=== PATIENT | male | born 1940 | race Hispanic/Latino ===

== ENCOUNTER 2017-08-08 11:26 | Emergency (ER) | payer OTHER ==
[~2017-08-08] VITALS: Ht 165.1 cm; Wt 95.3 kg
[~2017-08-08 11:26] MED LIST: A.I.R.S. NEBUL1 EACH; ADVAIR HFA 230-12 GM INH; AMLODIPINE BESY10 MG PO; CLONIDINE HCL0.2 MG PO; CLONIDINE HCL0.3 MG PO; CLOPIDOGREL75 MG PO; COLACE100 MG PO; HTN MED; LINZESS PO; LIPITOR20 MG PO; METOPROLOL TART25 MG PO; METOPROLOL TART50 MG PO; NORCO 10MG-325MG1 EA PO; NORVASC5 MG PO; OMEGA 3 PO; PREDNISONE10 MG PO; PROAIR HFA INH8.5 GM INH; TAMSULOSIN HCL0.4 MG PO; TERAZOSIN HCL1 MG PO; VENTOLIN HFA18 GM
--- OUTSIDE RECORDS SUMMARY | 2017-08-08 11:30 | XMS REPORT ---
Author Author [facility] Address Unknown Phone Unavailable Care Team Providers Care Mgmt Specialist Name Role Phone ADRIANNE PRIETO Unavailable Unavailable Problems This patient has no known problems. Allergies, Adverse Reactions, Alerts This patient has no known allergies or adverse reactions. Medications This patient has no known medications. Results Test Description Test Time Test Comments Text Results Atomic Results Result Comments CHEST 2 VIEWS [place] [address] Patient Name: BI VILLELA MR #: [id number] : 1940 Age/Sex: 76/M Req # : [id number] Adm Physician: Ordered by: ADRIANNE PRIETO MD Report #: [id number] Location: ER Room/Bed: Procedure: [id number] DX/CHEST 2 VIEWS Exam Date: 04/19/17 Exam Time: 1330 REPORT STATUS: Signed PROCEDURE: Frontal and lateral views of the chest. COMPARISON: Chest 2 views 04/22/2016. INDICATIONS: COUGH AND CHEST PAIN FINDINGS: Lines/tubes: None. Lungs: The lungs are well inflated and clear. There is no evidence of pneumonia or pulmonary edema. Bibasilar atelectasis. Pleura: There is no pleural effusion or pneumothorax. Heart and mediastinum: The heart and the mediastinum are normal. Bones: No acute bony abnormality. IMPRESSION: No acute radiographic abnormality. Dictated by: Gianna Villalpando M.D. on 04/19/2017 at 14:33 Electronically approved by: Gianna Villalpando M.D. on 04/19/2017 at 14:33 Dictated By: GIANNA VILLALPANDO MD [id number] Transcribed By: JOHANNA on 04/19/17 1433 COPY TO: ADRIANNE PRIETO MD
[2017-08-08 12:07] LABS: BASOPHILS # (AUTO) 0.1 (0.0-0.1); BASOPHILS % 0.6 % (0.0-1.0); EOSINOPHILS # (AUTO) 0.4 (0.0-0.4); HEMATOCRIT 42.8 % (38.2-49.6); HEMOGLOBIN 14.1 g/dL (14.0-18.0); LYMPHOCYTES # (AUTO) 1.5 (1.0-3.2); LYMPHOCYTES % 15.9 % (18.0-39.1); MEAN CORPUSCULAR HEMOGLOBIN 28.3 pg (28-32); MEAN CORPUSCULAR HGB CONC 32.9 g/dL (31-35); MEAN CORPUSCULAR VOLUME 85.9 fL (81-99); MONOCYTES # (AUTO) 0.5 (0.2-0.8); MONOCYTES % 5.2 % (4.4-11.3); NEUTROPHILS # (AUTO) 6.9 (2.1-6.9); NEUTROPHILS % 73.7 % (38.7-80.0); PLATELET COUNT 193 x10e3/uL (140-360); RED BLOOD COUNT 4.98 x10e6/uL (4.3-5.7); RED CELL DISTRIBUTION WIDTH 14.4 % (11.7-14.4)
[2017-08-08 12:25] LABS: ALBUMIN 3.4 g/dL (3.5-5.0); ALBUMIN/GLOBULIN RATIO 0.9 (0.8-2.0); ANION GAP 18.5 mmol/L (8-16); CALCIUM 8.8 mg/dL (8.4-10.2); CREATININE, SERUM 2.37 mg/dL (0.72-1.25); POTASSIUM 4.5 mmol/L (3.5-5.1)
[2017-08-08 14:16] VITALS: BP 149/85
== END 2017-08-08 14:38 | disposition home or self-care (01) ==
LOC: ER 11:26
DX: M79.605 Pain in left leg (principal); I10 Essential (primary) hypertension; E78.5 Hyperlipidemia, unspecified; Z85.53 Personal history of malignant neoplasm of renal pelvis
CPT/HCPCS: 36415; 80053; 85025; 93005; 93925; 93970; 99283

== ENCOUNTER → 2018-01-21 | Day surgery (SDC) | payer MEDICARE, OTHER ==
[2018-01-20 11:30] LABS: BASOPHILS % 0.3 % (0.0-1.0); EOSINOPHILS # (AUTO) 0.3 (0.0-0.4); EOSINOPHILS % 4.5 % (0.0-6.0); HEMATOCRIT 37.9 % (38.2-49.6); HEMOGLOBIN 11.9 g/dL (14.0-18.0); LYMPHOCYTES # (AUTO) 1.5 (1.0-3.2); LYMPHOCYTES % 25.1 % (18.0-39.1); MEAN CORPUSCULAR HGB CONC 31.4 g/dL (31-35); MEAN CORPUSCULAR VOLUME 92.2 fL (81-99); MONOCYTES # (AUTO) 0.6 (0.2-0.8); MONOCYTES % 9.4 % (4.4-11.3); NEUTROPHILS # (AUTO) 3.6 (2.1-6.9); NEUTROPHILS % 59.9 % (38.7-80.0); PLATELET COUNT 128 x10e3/uL (140-360); RED BLOOD COUNT 4.11 x10e6/uL (4.3-5.7); RED CELL DISTRIBUTION WIDTH 14.7 % (11.7-14.4)
[2018-01-20 11:54] LABS: ANION GAP 15.4 mmol/L (8-16); CALCIUM 8.7 mg/dL (8.4-10.2); CREATININE, SERUM 2.58 mg/dL (0.72-1.25); POTASSIUM 5.4 mmol/L (3.5-5.1)
[~2018-01-21] MED LIST changes: +BUPIVACAINE 0.25%/EPI 30ML SDV INJ ONE; +DEXAMETHASONE SOD PHOS INJ 4 MG/ML VIAL ONE; +FENTANYL CITRATE/PF 100MCG/2 ML INJ ONE; +FUROSEMIDE40 MG PO; +GABAPENTIN400 MG PO; +KETOROLAC TROMETHAMINE 30 MG/ML VIAL ONE; +LIDOCAINE HCL 1% LOCAL INJ 20 ML VIAL ONE; +LIDOCAINE HCL 2% LOCAL INJ 5 ML SDV VIAL INJ ONE; +LISINOPRIL10 MG PO; +MIDAZOLAM HCL 2 MG/2 ML VIAL ONE; +NIFEDIPINE ER30 M1 PO; +ONDANSETRON HCL INJ 2 MG/ML VIAL ONE; +POTASSIUM CHLO10 ME1 PO; +PROPOFOL IV EMULSION 10 MG/ML 20 ML VIAL ONE; +ROPINIROLE HC0.25 MG PO; +SERTRALINE HCL100 MG PO; +SEVOFLURANE INHAL SOLN 250 ML PEN BTL ONE
--- NOTE | 2018-01-21 11:37 | Operative Report ---
DATE OF PROCEDURE: PREOPERATIVE DIAGNOSIS: Status post incision and drainage of infected epidermal inclusion cyst of the mid back. POSTOPERATIVE DIAGNOSIS: Status post incision and drainage of infected epidermal inclusion cyst of the mid back. PROCEDURE PERFORMED: Excision of previously drained epidermal inclusion cyst of the back with flap closure. ANESTHESIA: General endotracheal. ESTIMATED BLOOD LOSS: Minimal. DRAINS: None. COMPLICATIONS: None. INDICATIONS AND FINDINGS: A 77-year-old male who had undergone I and D of an infected epidermal inclusion cyst of the back, now admitted for wide excision after the I and D site has healed. Intraoperative findings were healed scar in the mid back with residual scarring consistent with previously drained inclusion cyst. DESCRIPTION OF PROCEDURE: With the patient on the operative table in the supine position after administration of general anesthesia, he was prepped and draped for excision of previously drained epidermal inclusion cyst. With the patient in the right lateral decubitus position, an elliptical incision was drawn around the cyst and then, the skin was incised and the dissection was carried out through the subcutaneous tissue and scar tissue down to the fascia. The remaining part of the excision was carried out using electrocautery and the tissue was then removed. Bleeding points cauterized. The wound irrigated, infiltrated with 0.25% Marcaine with epinephrine, and then closed in 2 layers using 2-0 Vicryl for the soft tissues and the skin was closed using 3-0 silk. Sterile dressing was applied. The patient tolerated the procedure well, taken to the recovery room in stable condition. Job#: [id number] AYESHA
== END | disposition home or self-care (01) ==
LOC: OR 07:54
PROVIDERS: ATTEND Surgery
DX: L72.0 Epidermal cyst (principal); L90.5 Scar conditions and fibrosis of skin; J44.9 Chronic obstructive pulmonary disease, unspecified; G47.33 Obstructive sleep apnea (adult) (pediatric); K21.9 Gastro-esophageal reflux disease without esophagitis; Z01.810 Encounter for preprocedural cardiovascular examination; Z01.812 Encounter for preprocedural laboratory examination; Z79.02 Long term (current) use of antithrombotics/antiplatelets
CPT/HCPCS: 21930; 36415 ×2; 80048; 84132; 85025; 88305; 93005; J1100; J1885; J2250; J2001; J2405; 88304

== ENCOUNTER 2018-08-18 10:19 | Inpatient (IN) | payer MEDICARE, OTHER ==
[~2018-08-18] VITALS: Ht 165.1 cm; Wt 95.3 kg
[~2018-08-18 10:19] MED LIST changes: -BUPIVACAINE 0.25%/EPI 30ML SDV INJ ONE; -DEXAMETHASONE SOD PHOS INJ 4 MG/ML VIAL ONE; -FENTANYL CITRATE/PF 100MCG/2 ML INJ ONE; -KETOROLAC TROMETHAMINE 30 MG/ML VIAL ONE; -LIDOCAINE HCL 1% LOCAL INJ 20 ML VIAL ONE; -LIDOCAINE HCL 2% LOCAL INJ 5 ML SDV VIAL INJ ONE; -MIDAZOLAM HCL 2 MG/2 ML VIAL ONE; -ONDANSETRON HCL INJ 2 MG/ML VIAL ONE; -PROPOFOL IV EMULSION 10 MG/ML 20 ML VIAL ONE; -SEVOFLURANE INHAL SOLN 250 ML PEN BTL ONE
[2018-08-18 11:10] LABS: BASOPHILS % 0.4 % (0.0-1.0); EOSINOPHILS # (AUTO) 0.3 (0.0-0.4); EOSINOPHILS % 3.3 % (0.0-6.0); HEMATOCRIT 40.9 % (38.2-49.6); HEMOGLOBIN 12.9 g/dL (14.0-18.0); LYMPHOCYTES % 12.9 % (18.0-39.1); MEAN CORPUSCULAR HEMOGLOBIN 27.4 pg (28-32); MEAN CORPUSCULAR HGB CONC 31.5 g/dL (31-35); MEAN CORPUSCULAR VOLUME 86.8 fL (81-99); MONOCYTES # (AUTO) 0.5 (0.2-0.8); MONOCYTES % 6.4 % (4.4-11.3); NEUTROPHILS # (AUTO) 5.7 (2.1-6.9); NEUTROPHILS % 76.2 % (38.7-80.0); PLATELET COUNT 176 x10e3/uL (140-360); RED BLOOD COUNT 4.71 x10e6/uL (4.3-5.7); RED CELL DISTRIBUTION WIDTH 14.6 % (11.7-14.4)
[2018-08-18 11:34] LABS: ALBUMIN 3.4 g/dL (3.5-5.0); ANION GAP 13.1 mmol/L (8-16); CALCIUM 8.3 mg/dL (8.4-10.2); CREATININE, SERUM 2.08 mg/dL (0.72-1.25); POTASSIUM 4.1 mmol/L (3.5-5.1)
--- NOTE | 2018-08-18 11:34 | NUR ---
rec'd pt in rm 6 from the lobby for left leg swelling/redness
[2018-08-18 11:38] LABS: INR 0.88; PROTHROMBIN TIME 12.4 seconds (11.9-14.5)
[2018-08-18 11:39] LABS: PARTIAL THROMBOPLASTIN TIME 29.1 seconds (23.8-35.5)
[2018-08-18 11:47] LABS: CLARITY,URINE CLEAR (CLEAR); COLOR,URINE STRAW (YELLOW); LEUKOCYTE ESTERASE ,URINE NEGATIVE (NEGATIVE); NITRITE,URINE NEGATIVE (NEGATIVE); PROTEIN,URINE DIPSTICK 3+ (NEGATIVE)
[2018-08-18 11:48] LABS: BILIRUBIN,URINE NEGATIVE (NEGATIVE); KETONES,URINE NEGATIVE (NEGATIVE); URINE UROBILINOGEN 0.2 mg/dL (0.2 - 1)
[2018-08-18 11:56] LABS: HYALINE CASTS 0-1 (0-1)
[2018-08-18 11:58] LABS: WBC,URINE (MAN) 0-5 /HPF (0-5)
--- NOTE | 2018-08-18 13:03 | Diagnostic Imaging Report ---
EXAMINATION: CHEST 2 VIEWS INDICATION: Shortness of breath, rhonchi right lung base. COMPARISON: None FINDINGS: TUBES and LINES: None. LUNGS: There are mild patchy bibasilar opacities, left greater than right. No evidence of pulmonary edema. PLEURA: No pleural effusion or pneumothorax. HEART AND MEDIASTINUM: The cardiomediastinal silhouette is unremarkable. There are atherosclerotic calcifications within the aorta. BONES AND SOFT TISSUES: No acute osseous abnormality. UPPER ABDOMEN: No free air under the diaphragm. IMPRESSION: Mild patchy bibasilar opacities may represent pneumonia or atelectasis in the appropriate clinical setting. Follow-up chest radiograph is suggested in 6-8 weeks to assess for resolution. No evidence of pulmonary edema. Signed by: Dr. Dalila Zhou MD on 08/18/2018 1:00 PM
[2018-08-18] MEDS ORDERED: SODIUM CHLORIDE 0.9% 1000ML 1,000 ML IV SCH (14:16)
[2018-08-18] MEDS ORDERED: CEFTRIAXONE SOD 1 GRAM/0.9% SOD CHL 50ML BAG IV SCH (14:30)
[2018-08-18] MEDS ORDERED: AZITHROMYCIN 500MG/SOD CHL 0.9% 250ML BAG IV SCH (14:30)
[2018-08-18] MEDS: AZITHROMYCIN 500MG/NS 250 ML 250 ML IV SCH (14:30)
[2018-08-18] MEDS ORDERED: ALBUTEROL SULF 0.083% NEB SOLN 3 ML NEB NEB SCH (14:30)
[2018-08-18] MEDS: IPRATROPIUM BROMIDE 0.02% 2.5 ML NEB NEB SCH (14:35)
[2018-08-18] MEDS: ALBUTEROL SULF 0.083% NEB SOLN 3 ML NEB NEB SCH ×2 (14:35→19:45)
[2018-08-18] MEDS: CEFTRIAXONE SOD 1 GM/NS 50 ML 50 ML IV SCH (15:08)
[2018-08-18 16:25] VITALS: BP 178/85
--- NOTE | 2018-08-18 16:42 | NUR ---
PATIENT ARRIVED ON THE UNIT AT 1615 PER STRETCHER FROM THE ER. PATIENT IS IN STABLE CONDITION WITH NO S/S OF RESPIRATORY DISTRESS. PATIENT REQUESTED O2- O2 APPLIED. PATIENT C/O HEAD PAIN. IV ANTIBIOTIC INFUSING. FAMILY MEMBERS PRESENT AT BEDSIDE. CALL LIGHT IS WITHIN REACH- PATIENT INSTRUCTED TO CALL FOR ASSISTANCE NEEDED. AIR PUMP APPLIED.
[2018-08-18 16:45] VITALS: BP 178/85
[2018-08-18 16:53] VITALS: BP 178/85
[2018-08-18] MEDS ORDERED: IPRATROPIUM BROMIDE 0.02% 2.5 ML NEB NEB SCH (18:00)
--- NOTE | 2018-08-18 18:06 | NUR ---
CALL PLACED OUT TO DR. IBARRA AT 1800 FOR PAIN MEDICATION- AWAITING CALLBACK.
[2018-08-18 19:00] VITALS: BP 178/85
--- NOTE | 2018-08-18 19:00 | NUR ---
PT IS RESTING IN BED WITH FAMILY AT BEDSIDE. NO RESPIRATORY DISTRESS NOTED. BED IN THE LOWEST POSITION, LOCKED, AND CALL LIGHT WITHIN REACH. WILL CONTINUE TO MONITOR.
[2018-08-18 19:13] LABS: CREATINE KINASE MB 2.9 ng/mL (0-5.0)
--- NOTE | 2018-08-18 19:24 | NUR ---
PATIENT IS RESTING IN BED- IN STABLE CONDITION WITH NO S/S OF RESPIRATORY DISTRESS. NO PAIN VOICED. O2 APPLIED. IV FLUIDS INFUSING. BED ALARM ON. CALL LIGHT IS WITHIN REACH- PATIENT INSTRUCTED TO CALL FOR ASSISTANCE NEEDED. BEDSIDE REPORT GIVEN TO ONCOMING NURSE.
[2018-08-18 20:00] VITALS: BP 197/89
--- NOTE | 2018-08-18 20:51 | NUR ---
PAGE DR IBARRA FOR BP ORDER. PT BP IS 197/89. AWAITING CALL BACK.
--- NOTE | 2018-08-18 20:59 | NUR ---
PER DR IBARRA CONTINUE CLONIDINE 0.1MG Q6H PRN FOR BP GREATER THAN 160/90, LISINOPRIL 20MG DAILY, NIFEDIPINE 60MG BID, TYLENOL 650MG Q6 PRN, NORCO 5MG Q6 PRN, AND CONSULT DR SUE. WILL CONTINUE TO MONITOR.
[2018-08-18] MEDS ORDERED: HYDROCODONE/APAP 5MG-325MG TAB PO PRN (21:00)
[2018-08-18] MEDS ORDERED: CLONIDINE HCL 0.2 MG TAB PO PRN (21:00)
[2018-08-18] MEDS ORDERED: ACETAMINOPHEN 325 MG TAB PO PRN (21:00)
[2018-08-18] MEDS: CLONIDINE HCL 0.1 MG TAB PO PRN (21:28)
[2018-08-19] VITALS (11 sets, daily range): BP systolic 158–202; BP diastolic 77–94
[2018-08-19] MEDS: ALBUTEROL SULF 0.083% NEB SOLN 3 ML NEB NEB SCH ×6 (00:05→19:43)
[2018-08-19] MEDS: IPRATROPIUM BROMIDE 0.02% 2.5 ML NEB NEB SCH ×4 (00:05→19:43)
[2018-08-19] MEDS: CLONIDINE HCL 0.1 MG TAB PO PRN ×3 (03:23→21:15)
--- NOTE | 2018-08-19 06:08 | Diagnostic Imaging Report ---
EXAMINATION: CHEST SINGLE (PORTABLE) INDICATION: Pneumonia. COMPARISON: 08/18/2018. FINDINGS: TUBES and LINES: None. LUNGS: Redemonstration of patchy bibasilar opacities, left greater than right, unchanged. No evidence of pulmonary edema. PLEURA: No pleural effusion or pneumothorax. HEART AND MEDIASTINUM: The cardiac silhouette is mildly enlarged. Calcification of aortic arch. There are atherosclerotic calcifications within the aorta. BONES AND SOFT TISSUES: No acute osseous abnormality. UPPER ABDOMEN: No free air under the diaphragm. IMPRESSION: Patchy bibasilar opacities again observed without significant change. It may represent atelectasis versus pneumonia in the proper clinical setting. Signed by: Dr. Bruna Cortés M.D. on 08/19/2018 6:04 AM
[2018-08-19 06:42] LABS: BASOPHILS % 0.3 % (0.0-1.0); EOSINOPHILS # (AUTO) 0.2 (0.0-0.4); HEMOGLOBIN 11.9 g/dL (14.0-18.0); LYMPHOCYTES # (AUTO) 1.2 (1.0-3.2); LYMPHOCYTES % 16.1 % (18.0-39.1); MEAN CORPUSCULAR HEMOGLOBIN 27.6 pg (28-32); MEAN CORPUSCULAR HGB CONC 31.3 g/dL (31-35); MEAN CORPUSCULAR VOLUME 88.2 fL (81-99); MONOCYTES # (AUTO) 0.5 (0.2-0.8); MONOCYTES % 6.8 % (4.4-11.3); NEUTROPHILS # (AUTO) 5.6 (2.1-6.9); NEUTROPHILS % 73.3 % (38.7-80.0); PLATELET COUNT 154 x10e3/uL (140-360); RED BLOOD COUNT 4.31 x10e6/uL (4.3-5.7); RED CELL DISTRIBUTION WIDTH 14.8 % (11.7-14.4)
[2018-08-19 06:55] LABS: ANION GAP 13.2 mmol/L (8-16); CALCIUM 7.8 mg/dL (8.4-10.2); CREATININE, SERUM 1.89 mg/dL (0.72-1.25); POTASSIUM 4.2 mmol/L (3.5-5.1)
[2018-08-19 07:02] LABS: CREATINE KINASE MB 2.4 ng/mL (0-5.0)
--- NOTE | 2018-08-19 07:11 | NUR ---
RECEIVED PATIENT RESTING IN RECLINER. RESPIRATIONS EVEN AND UNLABORED, NO ACUTE DISTRESS NOTED. CALL LIGHT WITHIN REACH.
[2018-08-19] MEDS: NIFEDIPINE CR 30 MG TAB PO SCH ×2 (08:37→16:14)
[2018-08-19] MEDS ORDERED: LISINOPRIL 10 MG TAB PO SCH (09:00)
[2018-08-19] MEDS ORDERED: LISINOPRIL 20 MG TAB PO SCH (09:00)
[2018-08-19] MEDS: POTASSIUM CHLORIDE 10MEQ EA PO SCH ×2 (09:41→16:14)
[2018-08-19] MEDS: TAMSULOSIN HCL 0.4 MG CAP PO SCH (09:41)
[2018-08-19] MEDS: FUROSEMIDE INJ 10 MG/ML 4 ML VIAL IV SCH (09:41)
[2018-08-19] MEDS: CLOPIDOGREL BISULFATE 75 MG TAB PO SCH (09:42)
[2018-08-19] MEDS: GABAPENTIN 400 MG CAP PO SCH ×3 (09:42→21:15)
[2018-08-19] MEDS: ROPINIROLE HCL 0.25 MG TAB PO SCH (09:42)
--- NOTE | 2018-08-19 13:13 | Diagnostic Imaging Report ---
Renal ultrasound. History: History of renal cancer. Discussion: Transverse and longitudinal images of the left kidney was obtained demonstrating normal renal echogenicity. The right kidney is absent. There is no evidence of hydronephrosis, mass or renal calculus. The left kidney measures 12.8 x 5.3 x 5.3 cm. Several renal cysts are present: Medial mid pole measuring 2.6 x 2.4 x 2.4, upper pole measuring 1.3 x 1.3 x 1.3 and lower pole measuring 2.3 x 2.0 x 2.4 cm. The urinary bladder is unremarkable with a normal left urinary jet present. Estimated prevoid volume is 88.7 cc. Prostate is not well seen. There is no evidence of free fluid. IMPRESSION: Multiple left renal cysts. Signed by: Dr. Natan Ocampo DO on 08/19/2018 1:10 PM
--- NOTE | 2018-08-19 14:25 | NUR ---
CASE MANAGEMENT INITIAL ASSESSMENT Training Intern to bedside to discuss plan of care with patient/family. CM/SW role and care transitions discussed. Anticipated discharge plan discussed along with duration of care. CM/SW discussed patients right to make decisions in care. CM/SW work hours given. Patient lives: [place] [facility] [facility] Admit/Transfer: ER Hospital/ER visits since last admit: NONE POA/Emergency contact: ELENI / DTR @ [phone] Current/Previous Home Health: NONE PCP/Follow-up Care: DR. MONTEMAYOR Current/Previous DME: WC, WALKER, NEBULIZER Other Services: NONE Employment Status: RETIRED Areas of Concerns: NONE Referral Needs: NONE Education Needs: NONE IMM/MARTINEZ given and signed (if applicable): IMM SIGNED BY DAUGHTER. COPY TO PT AND COPY TO CHART. DTR REQUESTED TUVALU[employer] FOR IMM LETTER. Goal for discharge: RETURN HOME CM/SW left business card at the bedside with contact information. Name and number was also written on the patients whiteboard. Patient verbalized understanding of discussion. CM will follow-up with ongoing discharge and transition of care needs.
[2018-08-19] MEDS: CEFTRIAXONE SOD 1 GM/NS 50 ML 50 ML IV SCH (15:45)
[2018-08-19] MEDS: AZITHROMYCIN 500MG/NS 250 ML 250 ML IV SCH (16:20)
--- NOTE | 2018-08-19 17:16 | Diagnostic Imaging Report ---
EXAM: CT Chest without contrast 08/19/2018 2:46 PM INDICATION: Pneumonia COMPARISON: 08/18/2018 chest x-ray TECHNIQUE: Chest was scanned utilizing a multidetector helical scanner from the lung apex through the level of the adrenal glands without administration of IV contrast. Coronal and sagittal reformations were obtained. Routine protocol was performed. Technique manipulation was accomplished to maintain the lowest dose possible to the patient. IV CONTRAST: None RADIATION DOSE: Total DLP: 541.25 mGy*cm Estimated effective dose: (DLP x 0.014 x size factor) mSv COMPLICATIONS: None FINDINGS: LINES/ TUBES: None. LUNGS AND AIRWAYS: Right and left lower lobe consolidation. Right lower lobe calcified granuloma. Airways are normal. PLEURA: The pleural spaces are clear. HEART AND MEDIASTINUM: Cystic lesion of the left thyroid lobe. No mediastinal, hilar or axillary lymphadenopathy. The heart is normal in size.. Aortic and coronary artery calcification. There is no pericardial effusion. UPPER ABDOMEN: Limited non-contrast views of the upper abdomen show no abnormality within the visualized liver, spleen or pancreas Gallbladder is absent. Left mid pole renal cyst. Low-density cystic lesion of the lateral limb of the left adrenal gland measures 2.5 cm but is indeterminant. BONES: Degenerative changes of the spine. SOFT TISSUES: Unremarkable. IMPRESSION: 1. Bilateral lower lobe consolidations. 2. Left adrenal mass incompletely characterized. 3. Adrenal mass protocol CT would be of benefit. Signed by: Dr. Natan Ocampo DO on 08/19/2018 5:13 PM
[2018-08-19] MEDS ORDERED: ZOLPIDEM TARTRA10 MG PO (17:29)
[2018-08-19] MEDS ORDERED: NON-FORMULARY MEDICATION (Zolpidem Tartrate 10 MG) PO PRN (17:45)
--- NOTE | 2018-08-19 19:10 | NUR ---
Patient visited in room during nursing rounds. Patient alert and oriented x3. Pt is guinean speaking only. and daughter at bedside visiting. No distress or discomfort noted. On 2L NC and scheduled IV antibiotics. Call calloway within reach. Will monitor closely.
--- NOTE | 2018-08-19 19:31 | Consultation ---
DATE OF CONSULTATION: Pulmonary Consultation REASON FOR THE CONSULT: Pneumonia. HISTORY OF PRESENT ILLNESS: Mr. West is a 77-year-old male, he presented with worsening shortness of breath, coughing and chest discomfort going on for last few days. It progressively got worse, so the daughter brought the patient to the hospital. He has history of chronic kidney disease and BPH. He reports coughing and wheezing. He smoked long time ago, does not remember how many years he smoked. REVIEW OF SYSTEMS: GENERAL: Reports having chills and fever. HEAD: Denies any head trauma. ENT: Denies any earache. CVS: Chest pain. RESPIRATORY: Shortness of breath, cough and wheezing. The rest of the review of systems are negative except as in HPI. PAST MEDICAL HISTORY: History of kidney cancer status post nephrectomy, hypertension, hyperlipidemia, peripheral arterial disease. PAST SURGICAL HISTORY: Nephrectomy. FAMILY AND SOCIAL HISTORY: He does not smoke. Does not drink. PHYSICAL EXAMINATION: VITAL SIGNS: Temperature 96.5, pulse of 70, blood pressure 186/94, respiratory rate of 18 to 20. HEENT: Head is atraumatic, normocephalic. NECK: Supple. CHEST: Wheezing and crackles bilaterally. HEART: S1, S2 audible. ABDOMEN: Soft, nontender. EXTREMITIES: No clubbing, cyanosis. The patient has left lower extremity edema, which he reports is chronic. DIAGNOSTIC DATA: Chest x-ray, I reviewed the images. Multiple patchy opacities consistent with consolidation versus atelectasis. LABORATORY DATA: Sodium 141, potassium 4.2, chloride 110, BUN 21, creatinine 1.89. White count of 7.68, hemoglobin 11.1, platelets 154. ASSESSMENT/PLAN: Mr. West is a 77-year-old male, who presented with worsening shortness of breath. The patient has cough, wheezing; chest x-ray, multiple opacities in the lung, likely pneumonia. However, history of kidney cancer and nephrectomy. RECOMMENDATIONS: 1. I will do a CT of the chest without contrast to further evaluate these opacities. 2. At this point, continue the patient on IV Rocephin and azithromycin as ordered. 3. Nebulizer treatment has been started. If he does not respond well with nebulizer treatment, may need low dose of steroids. Discussed with patient's daughter at bedside in detail. Ponce MD CONG [place]/ROXANNA /[id number]
--- NOTE | 2018-08-19 19:33 | NUR ---
REPORT GIVEN TO ONCOMING NURSE, PATIENT IS SITTING UP IN RECLINER, NO ACUTE DISTRESS NOTED. AT BEDSIDE. CALL LIGHT WITHIN REACH.
--- NOTE | 2018-08-19 20:22 | Consultation ---
DATE OF CONSULTATION: 08/19/2018 Cardiology Consultation REASON FOR CONSULTATION: Congestive heart failure. HISTORY OF PRESENT ILLNESS: This is a 77-year-old man with history of hypertension, hyperlipidemia, renal cell carcinoma status post right nephrectomy, who presents with complaints of shortness of breath. The patient indicates he has been short of breath for approximately the last two weeks with worsening shortness of breath on exertion. He denies any chest pain, palpitations, or lightheadedness. He denies any orthopnea or PND. He likewise denies any fever or chills. REVIEW OF SYSTEMS: Negative except as per HPI. PAST MEDICAL HISTORY: 1. Hypertension. 2. Hyperlipidemia. 3. Peripheral arterial disease. 4. History of right renal cancer status post nephrectomy. PAST SURGICAL HISTORY: 1. Reported femoral-popliteal bypass. 2. Nephrectomy. ALLERGIES: PLEASE SEE EMR. MEDICATIONS: Please see medication list. SOCIAL HISTORY: The patient previously smoked and drank, he has quit both. He denied any alcohol use. FAMILY HISTORY: None. PHYSICAL EXAMINATION: VITAL SIGNS: Temperature 96.6 degrees, pulse 67, respiratory rate 22, blood pressure 125/79, oxygen 100%. GENERAL: Awake, alert, well developed, well nourished, in no acute distress. HEENT: Normocephalic, atraumatic. Pupils equal, no scleral icterus. NECK: Supple. No thyromegaly or cervical lymphadenopathy. No carotid bruits. LUNGS: Clear to auscultation bilaterally. No wheezes or crackles. CARDIOVASCULAR: Normal rate, regular rhythm. No murmur. Normal S1, S2. ABDOMEN: Soft, nontender. EXTREMITIES: 2+ pitting edema in the left greater than right. NEUROLOGIC: Nonfocal exam. LABORATORY DATA: WBC 7.68, hemoglobin 11.9, hematocrit 38, platelets 154. Sodium 141, potassium 4.2, chloride 110, CO2 22, BUN 21, and creatinine 1.89. Troponin 0.024. EKG, normal sinus rhythm. T-wave abnormality. Chest x-ray, patchy bibasilar opacities again observed without significant change, it may represent atelectasis versus pneumonia in the proper clinical setting. IMPRESSION: 1. Dyspnea. 2. Hypertension. 3. Hyperlipidemia. 4. History of peripheral arterial disease. 5. Chronic kidney disease. 6. History of renal cell carcinoma status post right nephrectomy. RECOMMENDATIONS: We will obtain echocardiogram to evaluate LV function. The patient had lower extremity venous Doppler performed without evidence of DVT on the left. Antibiotics per primary service. Blood pressure control, increase losartan. Thank you for this consult. We will continue to follow. Lorin Garrett MD ABS/MODL /[id number]
[2018-08-19] MEDS: ATORVASTATIN 20 MG TAB PO SCH (21:15)
[2018-08-19] MEDS: SERTRALINE HCL 100 MG TAB PO SCH (21:15)
[2018-08-19] MEDS: ZOLPIDEM TARTRATE 10 MG TAB PO PRN (22:36)
[2018-08-20] VITALS (8 sets, daily range): BP systolic 131–186; BP diastolic 60–81
[2018-08-20] MEDS: IPRATROPIUM BROMIDE 0.02% 2.5 ML NEB NEB SCH ×4 (00:10→19:25)
[2018-08-20] MEDS: ALBUTEROL SULF 0.083% NEB SOLN 3 ML NEB NEB SCH ×6 (00:10→19:25)
[2018-08-20] MEDS: GABAPENTIN 400 MG CAP PO SCH ×3 (09:45→20:27)
[2018-08-20] MEDS: LISINOPRIL 20 MG TAB PO SCH (09:45)
[2018-08-20] MEDS: TAMSULOSIN HCL 0.4 MG CAP PO SCH (09:45)
[2018-08-20] MEDS: CLOPIDOGREL BISULFATE 75 MG TAB PO SCH (09:45)
[2018-08-20] MEDS: FUROSEMIDE INJ 10 MG/ML 4 ML VIAL IV SCH (09:45)
[2018-08-20] MEDS: ROPINIROLE HCL 0.25 MG TAB PO SCH (09:45)
[2018-08-20] MEDS: NIFEDIPINE CR 30 MG TAB PO SCH ×2 (09:45→17:19)
[2018-08-20] MEDS: CLONIDINE HCL 0.1 MG TAB PO PRN ×2 (09:45→17:19)
[2018-08-20] MEDS: POTASSIUM CHLORIDE 10MEQ EA PO SCH ×2 (09:45→17:19)
--- NOTE | 2018-08-20 10:00 | NUR ---
Rounds with Dr. Obando
[2018-08-20] MEDS ORDERED: METHYLPREDNISOLONE SOD SUCC 40 MG/ML VIAL 1ML IV ONE (10:15)
[2018-08-20] MEDS: CEFTRIAXONE SOD 1 GM/NS 50 ML 50 ML IV SCH (14:17)
[2018-08-20] MEDS ORDERED: ALBUTEROL/IPRATROPIUM 3 ML NEB NEB PRN (14:30)
[2018-08-20] MEDS ORDERED: AZITHROMYCIN 500MG/NS 250 ML 250 ML IV SCH (15:00)
[2018-08-20] MEDS: CEFEPIME 2 GM/NS 0.9% 100 ML 100 ML IV SCH (15:45)
--- NOTE | 2018-08-20 16:16 | Progress Note ---
DATE: Cardiology Progress Note SUBJECTIVE: The patient states he has no complaints, however, appears to be quite sleepy this morning. OBJECTIVE: VITAL SIGNS: Temperature 96.0, pulse 86, respiratory rate 20, blood pressure 186/77, and oxygen saturation 92% on 2 L nasal cannula. GENERAL: Oriented and oriented x3, resting comfortably in bed, does not appear to be in any acute distress. NECK: Supple. No JVD noted. LUNGS: Clear to auscultation throughout. No wheezing, no rhonchi, or crackles. CARDIOVASCULAR: Regular rate and rhythm. Normal S1 and S2. ABDOMEN: Rounded, soft, nontender. EXTREMITIES: Lower extremity 2+ pitting edema, left greater than right. CARDIOVASCULAR MEDICATIONS: Atorvastatin 80 mg p.o. at bedtime, clonidine 0.1 mg q.6 hours p.r.n., nifedipine 60 mg p.o. b.i.d., Plavix 75 p.o. daily, Lasix 40 mg IV daily, lisinopril 40 mg p.o. daily. LABORATORY DATA: WBC 7.68, hemoglobin 11.9, hematocrit 38.0, platelets 154. Sodium 141, potassium 4.2, BUN 21, creatinine 1.89, calcium 7.8. Troponin 0.024. BNP 63.5. IMPRESSION: 1. Dyspnea. 2. Hypertension. 3. Hyperlipidemia. 4. History of peripheral arterial disease. 5. Chronic kidney disease. Creatinine improved slightly this morning. 6. History of renal cell carcinoma, status post nephrectomy. 7. Diastolic heart failure. RECOMMENDATION: Continue the above-listed cardiac medication. Echocardiogram obtained yesterday with severe left ventricular hypertrophy noted and impaired diastolic relaxation. EF 50% to 55%. Lower extremity venous Doppler without any evidence of DVT on the left. Continue antimicrobial therapy per primary team. Medications adjusted for better blood pressure control. We will continue to follow. Dictated by Cindi Munoz NP MD LORENZA Melara/ROXANNA /[id number]
[2018-08-20] MEDS: VANCOMYCIN 1GM/NS 250 ML 250 ML IV SCH (17:00)
--- NOTE | 2018-08-20 17:40 | NUR ---
Pt continues with audible wheezing. RR continues to be elevated. made aware. Orders rec'd.
[2018-08-20 17:58] LABS: ABG HCO3 22 mmol/L (23-28); ABG PCO2 45 mmHg (41-51); ABG PH 7.29 (7.31-7.41); ABG PO2 85 mmHg (80-105)
[2018-08-20] MEDS ORDERED: FUROSEMIDE INJ 10 MG/ML 4 ML VIAL IV ONE (18:30)
--- NOTE | 2018-08-20 19:15 | NUR ---
Patient visited in room during nursing rounds. Patient alert and oriented x3. Pt is slovenian speaking only. Daughter at bedside visiting. No distress or discomfort noted. On 2L NC and scheduled IV antibiotics and IV steroid. Patient reminded to keep on wearing nasal cannula for oxygen supply. Call calloway within reach. Will monitor closely.
--- NOTE | 2018-08-20 20:25 | NUR ---
Spoke with Dr. Timmons (covering for Dr. Rodriguez) to report patient's elevated BP = 178/77. Dr. Timmons stated that's fine and was aware patient has already received Lasix 80mg IV today. Patient in stable condition at this time.
[2018-08-20] MEDS: SERTRALINE HCL 100 MG TAB PO SCH (20:27)
[2018-08-20] MEDS: ATORVASTATIN 20 MG TAB PO SCH (20:27)
[2018-08-20] MEDS: METHYLPREDNISOLONE SOD SUCC 40 MG/ML VIAL 1ML IV SCH (20:27)
[2018-08-21] VITALS (7 sets, daily range): BP systolic 139–173; BP diastolic 63–78
[2018-08-21] MEDS: ALBUTEROL SULF 0.083% NEB SOLN 3 ML NEB NEB SCH ×6 (00:07→19:22)
[2018-08-21] MEDS: IPRATROPIUM BROMIDE 0.02% 2.5 ML NEB NEB SCH ×4 (00:07→19:22)
[2018-08-21] MEDS: CLONIDINE HCL 0.1 MG TAB PO PRN ×2 (02:48→21:25)
[2018-08-21] MEDS: GABAPENTIN 400 MG CAP PO SCH ×3 (09:45→21:25)
[2018-08-21] MEDS: NIFEDIPINE CR 30 MG TAB PO SCH ×2 (09:45→17:15)
[2018-08-21] MEDS: POTASSIUM CHLORIDE 10MEQ EA PO SCH ×2 (09:45→17:15)
[2018-08-21] MEDS: CLOPIDOGREL BISULFATE 75 MG TAB PO SCH (09:45)
[2018-08-21] MEDS: TAMSULOSIN HCL 0.4 MG CAP PO SCH (09:45)
[2018-08-21] MEDS: ROPINIROLE HCL 0.25 MG TAB PO SCH (09:45)
[2018-08-21] MEDS: LISINOPRIL 20 MG TAB PO SCH (09:45)
[2018-08-21] MEDS: FUROSEMIDE INJ 10 MG/ML 4 ML VIAL IV SCH (10:00)
[2018-08-21] MEDS: METHYLPREDNISOLONE SOD SUCC 40 MG/ML VIAL 1ML IV SCH ×2 (10:00→21:25)
[2018-08-21 13:48] LABS: BASOPHILS % 0.1 % (0.0-1.0); HEMATOCRIT 34.4 % (38.2-49.6); HEMOGLOBIN 10.7 g/dL (14.0-18.0); LYMPHOCYTES # (AUTO) 0.5 (1.0-3.2); LYMPHOCYTES % 4.9 % (18.0-39.1); MEAN CORPUSCULAR HEMOGLOBIN 27.6 pg (28-32); MEAN CORPUSCULAR HGB CONC 31.1 g/dL (31-35); MEAN CORPUSCULAR VOLUME 88.7 fL (81-99); MONOCYTES # (AUTO) 0.3 (0.2-0.8); MONOCYTES % 2.8 % (4.4-11.3); NEUTROPHILS # (AUTO) 9.1 (2.1-6.9); NEUTROPHILS % 91.6 % (38.7-80.0); PLATELET COUNT 151 x10e3/uL (140-360); RED BLOOD COUNT 3.88 x10e6/uL (4.3-5.7); RED CELL DISTRIBUTION WIDTH 15.1 % (11.7-14.4)
[2018-08-21 14:11] LABS: ANION GAP 15.6 mmol/L (8-16); CALCIUM 8.1 mg/dL (8.4-10.2); CREATININE, SERUM 2.39 mg/dL (0.72-1.25); POTASSIUM 4.6 mmol/L (3.5-5.1)
[2018-08-21 14:22] LABS: LYMPHOCYTES % (MANUAL) 10 % (19-48); MONOCYTES % (MANUAL) 3 % (3.4-9.0); NEUTROPHILS % (MANUAL) 87 % (40-74); PLATELET ESTIMATE ADEQUATE; PLATELET MORPHOLOGY COMMENT NORMAL; RBC MORPHOLOGY COMMENT NORMAL
[2018-08-21] MEDS: CEFEPIME 2 GM/NS 0.9% 100 ML 100 ML IV SCH (14:30)
--- NOTE | 2018-08-21 15:05 | Progress Note ---
DATE: Cardiology Progress Note SUBJECTIVE: The patient complains of right-sided neck pain and also shortness of breath and wheezing. OBJECTIVE: VITAL SIGNS: Temperature 96.1, pulse 76, respiratory rate 16, blood pressure 139/63, oxygen saturation 96% on 2 L nasal cannula. GENERAL: Alert and oriented x3, resting comfortably in bed. NECK: Supple. No JVD noted. LUNGS: Diminished breath sounds throughout with scattered inspiratory wheezing and rhonchi. CARDIOVASCULAR: Regular rate and rhythm. Normal S1, S2. ABDOMEN: Rounded, soft, nontender. EXTREMITIES: Lower extremity, trace edema bilaterally, left greater than the right. CARDIOVASCULAR MEDICATIONS: Lasix 40 mg IV daily, lisinopril 40 p.o. daily, gabapentin 400 mg p.o. t.i.d., Plavix 75 p.o. daily, nifedipine 60 p.o. b.i.d., clonidine 0.1 mg p.r.n. for elevated blood pressure, atorvastatin 80 mg p.o. at bedtime. IMPRESSION: 1. Hypertension. 2. Hyperlipidemia. 3. Pneumonia. 4. History of peripheral arterial disease. 5. Chronic kidney disease. 6. History of renal cell carcinoma status post nephrectomy. 7. Diastolic heart failure. RECOMMENDATION: Continue with the above-listed cardiac medications. Echocardiogram with severe left ventricular hypertrophy and impaired diastolic relaxation, EF 50% to 55%. Lower extremity Doppler with no evidence of DVT. Continue antimicrobial therapy per primary team. Monitor blood pressure closely. Pulmonary toileting and pulmonary care per Dr. [place]. Dictated by Cindi Munoz NP Charly Ritchie MD JWV/MODL /[id number]
--- NOTE | 2018-08-21 16:25 | NUR ---
Visit made by the Spiritual Care Department Pastoral Visitor, Lauren Rosenbaum. PV provided pastoral presence, hospitality, and supportive listening. Pastoral Visitor informed pt/family of the scope of Dialysis Clinical Manager Services and availability. YADIEL KOTHARI Type Disk Quality Control Supervisor Spiritual Care Department O: [phone] Pager: [phone] ([phone] number calling from)
[2018-08-21] MEDS: VANCOMYCIN 1GM/NS 250 ML 250 ML IV SCH (17:00)
--- NOTE | 2018-08-21 17:02 | Diagnostic Imaging Report ---
EXAMINATION: CHEST 2 VIEWS INDICATION: Posterior chest pain ^BILATERAL PNEUMONIA, CHF AND COPD ^[id number] ^1621 ^Y COMPARISON: CTA chest and chest x-ray 08/19/2018 FINDINGS: PA and lateral views TUBES and LINES: None. LUNGS: Diffuse hyperinflation consistent with COPD. There is bibasilar discoid atelectasis. Reticulation in the lateral left lung base is similar. PLEURA: Blunting of the posterior costophrenic angle suggestive of pleural effusion or pleural thickening HEART AND MEDIASTINUM: Stable cardiomegaly and aortic ectasia. BONES AND SOFT TISSUES: No focal osseous lesions. Soft tissues are unremarkable. UPPER ABDOMEN: No free air under the diaphragm. Aortic endograft is partially imaged. Surgical clips are in the right upper quadrant. IMPRESSION: 1. Reticulation in the lateral left lung base may be due to infiltrate. No progression compared to previous exam. 2. Bibasilar atelectasis. 3. Cardiomegaly. No vascular congestion. Signed by: Dr. Lexis Boyd MD on 08/21/2018 4:58 PM
--- NOTE | 2018-08-21 19:10 | NUR ---
Patient visited in room during nursing rounds. Patient alert and oriented x3. Pt is nepali speaking only. No distress or discomfort noted. On 2L NC and scheduled IV antibiotics and IV steroid. Patient reminded to keep on wearing nasal cannula for oxygen supply. Otherwise condition stable. Call calloway within reach. Will monitor closely.
[2018-08-21] MEDS: ATORVASTATIN 20 MG TAB PO SCH (21:25)
[2018-08-21] MEDS: SERTRALINE HCL 100 MG TAB PO SCH (21:25)
[2018-08-22] VITALS (8 sets, daily range): BP systolic 95–152; BP diastolic 54–73
[2018-08-22] MEDS: ALBUTEROL SULF 0.083% NEB SOLN 3 ML NEB NEB SCH ×7 (00:01→19:30)
[2018-08-22] MEDS: IPRATROPIUM BROMIDE 0.02% 2.5 ML NEB NEB SCH ×4 (00:10→19:30)
[2018-08-22 06:15] LABS: BASOPHILS % 0.1 % (0.0-1.0); HEMATOCRIT 33.2 % (38.2-49.6); HEMOGLOBIN 10.3 g/dL (14.0-18.0); LYMPHOCYTES # (AUTO) 0.5 (1.0-3.2); LYMPHOCYTES % 4.6 % (18.0-39.1); MEAN CORPUSCULAR HEMOGLOBIN 27.7 pg (28-32); MEAN CORPUSCULAR VOLUME 89.2 fL (81-99); MONOCYTES # (AUTO) 0.6 (0.2-0.8); MONOCYTES % 5.2 % (4.4-11.3); NEUTROPHILS % 89.3 % (38.7-80.0); PLATELET COUNT 157 x10e3/uL (140-360); RED BLOOD COUNT 3.72 x10e6/uL (4.3-5.7); RED CELL DISTRIBUTION WIDTH 15.5 % (11.7-14.4)
[2018-08-22 06:41] LABS: ANION GAP 15.1 mmol/L (8-16); CALCIUM 8.5 mg/dL (8.4-10.2); CREATININE, SERUM 2.52 mg/dL (0.72-1.25)
[2018-08-22 06:43] LABS: POTASSIUM 5.1 mmol/L (3.5-5.1)
--- NOTE | 2018-08-22 07:09 | NUR ---
RECEIVED REPORT FROM NIGHT NURSE, WALKING ROUNDS DONE. PATIENT IS IN STABLE CONDITION. NO ACUTE DISTRESS NOTED, RESPIRATIONS EVEN AND UNLABORED. DENIES PAIN OR DISCOMFORT AT THIS TIME. CALL LIGHT WITHIN REACH. BED IN THE LOWEST POSITION.
[2018-08-22] MEDS ORDERED: LACTULOSE SYRUP 20 GM/30 ML UDC PO PRN (09:00)
[2018-08-22] MEDS: FUROSEMIDE INJ 10 MG/ML 4 ML VIAL IV SCH (09:18)
[2018-08-22] MEDS: TAMSULOSIN HCL 0.4 MG CAP PO SCH (09:18)
[2018-08-22] MEDS: METHYLPREDNISOLONE SOD SUCC 40 MG/ML VIAL 1ML IV SCH ×2 (09:18→21:06)
[2018-08-22] MEDS: GABAPENTIN 400 MG CAP PO SCH ×3 (09:19→20:43)
[2018-08-22] MEDS: CLOPIDOGREL BISULFATE 75 MG TAB PO SCH (09:19)
[2018-08-22] MEDS: LISINOPRIL 20 MG TAB PO SCH (09:19)
[2018-08-22] MEDS: POTASSIUM CHLORIDE 10MEQ EA PO SCH ×2 (09:19→17:11)
[2018-08-22] MEDS: ROPINIROLE HCL 0.25 MG TAB PO SCH (09:20)
[2018-08-22] MEDS: NIFEDIPINE CR 30 MG TAB PO SCH ×2 (09:20→17:12)
[2018-08-22] MEDS: LUBIPROSTONE 24 MCG CAP PO SCH ×2 (11:12→17:11)
--- NOTE | 2018-08-22 13:05 | Progress Note ---
DATE: Internal Medicine Progress Note SUBJECTIVE: The patient is having some cough and constipation. PHYSICAL EXAMINATION: VITAL SIGNS: Blood pressure 152/71, temperature 97.4, heart rate 87 per minute, respiratory rate 21 per minute, oxygen saturation 99%. HEART: Show regular rhythm. No murmur or added sound. LUNGS: Show bilateral wheezing. ABDOMEN: Soft. EXTREMITIES: Show no evidence of cyanosis, edema, or trauma. LABORATORY AND IMAGING DATA: CT of the chest show bilateral pneumonia and also left adrenal mass. BMP; sodium 140, potassium 5.1, chloride 108, CO2 of 32, BUN 44, creatinine 2.52, glucose 129. CBC; white blood count is 7200, hemoglobin 10.3, hematocrit of 33.2, platelet count of . PT 12.4, PTT 29.1, and INR 0.98. AST 24, ALT 26, total bilirubin 0.6, alkaline phosphatase 98. FINAL IMPRESSION: 1. Right-sided pneumonia. 2. Peripheral vascular disease. 3. Acute on chronic renal failure, stage 3 to 4. 4. Acute diastolic congestive heart failure. 5. Left adrenal mass. 6. Constipation. PLAN OF TREATMENT: Continue albuterol q.4 hours, Atrovent q.6 hours, albuterol and Atrovent q.3 hours as needed, cefepime 1 g IV once a day, [place] 1 tablet q.6 hours as needed, furosemide 40 mg daily, Zoloft 100 mg daily, Ambien 10 mg at night, vancomycin 1 g IV once a day, clonidine 0.1 mg q.6 hours, gabapentin 400 mg three times daily, Flomax 0.4 mg daily, nifedipine 60 mg twice daily, Lipitor 80 mg daily, potassium chloride 10 mEq twice a day, lisinopril 40 mg daily, Tylenol 650 mg q.6 hours as needed, Plavix 75 mg daily, Requip 0.5 mg daily, Solu-Medrol 20 mg IV twice a day. Lactulose 20 g q.6 hours as needed for constipation also and Amitiza 24 mcg p.o. twice a day for constipation. The patient will be seen by Dr. Richards, who is going to see him as an outpatient for adrenal mass. He had nephrectomy because of renal cancer before. MD ANDRIY Trinidad/ROXANNA /[id number]
[2018-08-22] MEDS: CEFEPIME 2 GM/NS 0.9% 100 ML 100 ML IV SCH (14:38)
--- NOTE | 2018-08-22 15:18 | NUR ---
PAGED DR. MONTEMAYOR TO NOTIFY HIM OF ELEVATED VANC TROUGH OF 16.0, WAITING ROD PULLER BACK.
--- NOTE | 2018-08-22 15:41 | NUR ---
PER OK TO GIVE VANC SCHEDULED.
[2018-08-22] MEDS: VANCOMYCIN 1GM/NS 250 ML 250 ML IV SCH (15:49)
--- NOTE | 2018-08-22 18:52 | Progress Note ---
DATE: 08/22/2018 Cardiology Progress Note SUBJECTIVE: The patient denies chest pain, but reports he had shortness of breath last night. OBJECTIVE: VITAL SIGNS: Temperature 96.3 degrees, pulse 94, respiratory rate 24, blood pressure 114/58, and oxygen saturation 94% on 2 L nasal cannula. GENERAL: Awake, alert, in no acute distress. Obese. LUNGS: Clear to auscultation bilaterally. No wheeze or crackles. HEART: Normal rate, regular rhythm. No murmur. Normal S1, S2. ABDOMEN: Soft, nontender. EXTREMITIES: Trace edema. CARDIAC MEDICATIONS: Nifedipine 60 mg p.o. b.i.d., Lexapro 40 mg p.o. daily, Plavix 75 mg p.o. daily, furosemide 40 mg IV daily, and atorvastatin 80 mg p.o. at bedtime. LABORATORY DATA: WBC 11.2, hemoglobin 10.3, hematocrit 33.2, platelets 157. Sodium 140, potassium 5.1, chloride 108, CO2 of 22, BUN 24, creatinine 2.52. BNP 256. IMPRESSION: 1. Right-sided pneumonia. 2. Acute on chronic diastolic heart failure. 3. Hypertension. 4. Hyperlipidemia. 5. History of peripheral arterial disease. 6. Chronic kidney disease. 7. History of renal cell carcinoma status post nephrectomy. PLAN: Continue current cardiac medications. Echocardiogram demonstrated severe LVH and impaired left ventricular relaxation with preserved LVEF 50%-55%. Lower extremity Doppler was without evidence of DVT. Continue diuretics and watch volume status closely. Continue antibiotics per primary service. Blood pressure is labile, we will watch closely. Thank you for this consult. We will continue to follow. Lorin Garrett MD ABS/MODL /[id number]
--- NOTE | 2018-08-22 18:53 | NUR ---
REPORT GIVEN TO ONCOMING NURSE, WALKING ROUNDS DONE. PATIENT IS RESTING IN BED, RESPIRATIONS EVEN AND UNLABORED, NO ACUTE DISTRESS NOTED. CALL LIGHT WITHIN REACH. BED IN THE LOWEST POSITION.
[2018-08-22] MEDS: ATORVASTATIN 20 MG TAB PO SCH (20:43)
[2018-08-22] MEDS: SERTRALINE HCL 100 MG TAB PO SCH (20:44)
[2018-08-23] VITALS (8 sets, daily range): BP systolic 127–169; BP diastolic 57–79
[2018-08-23] MEDS: ALBUTEROL SULF 0.083% NEB SOLN 3 ML NEB NEB SCH ×7 (03:15→23:10)
[2018-08-23] MEDS: METHYLPREDNISOLONE SOD SUCC 40 MG/ML VIAL 1ML IV SCH ×3 (05:08→21:22)
[2018-08-23 06:14] LABS: BASOPHILS % 0.2 % (0.0-1.0); HEMATOCRIT 35.2 % (38.2-49.6); HEMOGLOBIN 10.8 g/dL (14.0-18.0); LYMPHOCYTES # (AUTO) 0.7 (1.0-3.2); LYMPHOCYTES % 6.7 % (18.0-39.1); MEAN CORPUSCULAR HEMOGLOBIN 27.3 pg (28-32); MEAN CORPUSCULAR HGB CONC 30.7 g/dL (31-35); MEAN CORPUSCULAR VOLUME 89.1 fL (81-99); MONOCYTES # (AUTO) 0.6 (0.2-0.8); MONOCYTES % 5.3 % (4.4-11.3); NEUTROPHILS # (AUTO) 8.9 (2.1-6.9); NEUTROPHILS % 86.4 % (38.7-80.0); PLATELET COUNT 173 x10e3/uL (140-360); RED BLOOD COUNT 3.95 x10e6/uL (4.3-5.7); RED CELL DISTRIBUTION WIDTH 15.5 % (11.7-14.4)
[2018-08-23 06:33] LABS: CALCIUM 8.4 mg/dL (8.4-10.2); CREATININE, SERUM 2.4 mg/dL (0.72-1.25)
--- NOTE | 2018-08-23 06:58 | NUR ---
RECEIVED REPORT FROM OFFGOING NURSE. RESPIRATIONS EVEN AND UNLABORED, NO ACUTE DISTRESS NOTED. DENIES PAIN OR DISCOMFORT AT THIS TIME. CALL LIGHT WITHIN REACH. BED IN THE LOWEST POSITION.
[2018-08-23] MEDS: IPRATROPIUM BROMIDE 0.02% 2.5 ML NEB NEB SCH ×5 (08:01→23:10)
[2018-08-23] MEDS: LUBIPROSTONE 24 MCG CAP PO SCH ×2 (08:53→16:43)
[2018-08-23] MEDS: TAMSULOSIN HCL 0.4 MG CAP PO SCH (08:53)
[2018-08-23] MEDS: FUROSEMIDE INJ 10 MG/ML 4 ML VIAL IV SCH (08:53)
[2018-08-23] MEDS: POTASSIUM CHLORIDE 10MEQ EA PO SCH ×2 (08:54→16:43)
[2018-08-23] MEDS: ROPINIROLE HCL 0.25 MG TAB PO SCH (08:54)
[2018-08-23] MEDS: CLOPIDOGREL BISULFATE 75 MG TAB PO SCH (08:54)
[2018-08-23] MEDS: LISINOPRIL 20 MG TAB PO SCH (08:54)
[2018-08-23] MEDS: GABAPENTIN 400 MG CAP PO SCH ×3 (08:54→20:40)
[2018-08-23] MEDS: NIFEDIPINE CR 30 MG TAB PO SCH ×2 (08:54→16:44)
--- NOTE | 2018-08-23 12:06 | Progress Note ---
DATE: Internal Medicine Progress Note SUBJECTIVE: The patient is still having wheezing. PHYSICAL EXAMINATION: HEART: Shows regular rhythm. No murmur or added sound. LUNGS: Show bilateral wheezing. ABDOMEN: Soft. VITAL SIGNS: Blood pressure 130/58, temperature 36.2, heart rate 83 per minute, respiratory rate 20 per minute, oxygen saturation 99%. LABORATORY DATA: On the BMP, sodium 140, potassium 5.0, chloride 110, CO2 22, BUN 52, creatinine 2.40, glucose 140. CBC shows white count 10.3, hemoglobin 10.8, hematocrit 35.2, platelet count 173,000. PT 12.4, INR 0.98, PTT 29.1, AST 24, ALT 26, total bilirubin 0.6, alkaline phosphatase 98. Blood cultures so far negative. Urine culture is showing no growth. Sputum culture showed less than 25 squamous epithelial cells, few gram-positive cocci in pairs and chains. Last chest x-ray showed reticulation of the left lung base may be due to infiltrate, no progression compared to prior exam. Bibasilar atelectasis, cardiomegaly. No vascular congestion. IMPRESSION: 1. Bilateral pneumonia. 2. Acute on chronic diastolic congestive heart failure. 3. Chronic obstructive pulmonary disease exacerbation. 4. Peripheral vascular disease. 5. Renal cancer, status post nephrectomy. 6. Left adrenal adenoma. 7. Hypertension with hypertensive nephropathy. 8. Acute on chronic renal failure, stage 2-3. PLAN OF TREATMENT: I am going to continue with the current medication regimen, which includes cefepime 2 g IV once a day, vancomycin 1 g IV once a day, Tylenol 650 mg q.6 hours as needed for mild pain, albuterol q.4 hours around the clock, albuterol and Atrovent q.3 hours as needed for shortness of breath, Lipitor 80 mg daily, clonidine 0.1 mg q.6 hours as needed, Plavix 75 mg daily, furosemide 40 mg IV daily, gabapentin 400 mg three times a day, [place] 5/325 mg tab q.6 hours as needed for moderate pain, Atrovent q.6 hours around the clock, lisinopril 40 mg daily, Amitiza 24 mcg twice a day for new constipation. Continue Solu-Medrol 20 mg IV q.8 hours, nifedipine 60 mg twice a day, potassium 10 mEq twice a day, Requip 0.5 mg daily, Zoloft 100 mg daily, Flomax 0.4 mg daily, and Ambien 10 mg at bedtime. I am going to refer the patient to [facility] to see if he is going to be accepted due to the overall medical condition with COPD exacerbation, bilateral pneumonia, and acute CHF. MD ANDRIY Trinidad/ROXANNA /[id number]
--- NOTE | 2018-08-23 14:41 | NUR ---
TOMASEDY BARCLAY SPOKE WITH PT USING [employer] TENDER PT REFUSING TO SIGN CONSENTS UNTIL HE SPEAKS WITH DTR ELENI PT'S GRAND-DAUGHTER AT BEDSIDE WHO SPEAKS KYRGYZ AND CALLED ELENI [phone] ELENI SPOKE WITH PT AND PT AGREEABLE PT ASKING IF GRAND-DAUGHTER WILL SIGN CONSENTS GRAND-DAUGHTER SIGNED CONSENTS AND MOT REQUESTED BY PT CHAYITO WITH [employer] NOTIFIED OF CONSULT
[2018-08-23] MEDS: CEFEPIME 2 GM/NS 0.9% 100 ML 100 ML IV SCH (16:37)
[2018-08-23] MEDS: VANCOMYCIN 1GM/NS 250 ML 250 ML IV SCH (17:23)
--- NOTE | 2018-08-23 19:16 | NUR ---
REPORT GIVEN TO ONCOMING NURSE, WALKING ROUNDS DONE. PATIENT IS SITTING UP IN BED, NO ACUTE DISTRESS NOTED. CALL LIGHT WITHIN REACH. BED IN THE LOWEST POSITION.
--- NOTE | 2018-08-23 20:34 | Progress Note ---
DATE: 08/23/2018 Cardiology Progress Note SUBJECTIVE: The patient denies chest pain or shortness of breath. OBJECTIVE: VITAL SIGNS: Temperature 97.6 degrees, pulse 81, respiratory rate 22, blood pressure 135/60, and oxygen saturation 94% on 2 L nasal cannula. GENERAL: Awake, alert, in no acute distress. LUNGS: Clear to auscultation bilaterally. No wheeze or crackles. CARDIOVASCULAR: Normal rate, regular rhythm. No murmur. Normal S1, S2. ABDOMEN: Soft, nontender. EXTREMITIES: Trace edema. CARDIAC MEDICATIONS: Nifedipine 60 mg p.o. b.i.d., lisinopril 40 mg p.o. daily, Plavix 75 mg p.o. daily, furosemide 40 mg IV daily, atorvastatin 80 mg p.o. at bedtime. LABORATORY DATA: WBC 10.32, hemoglobin 10.8, hematocrit 35.2, and platelets 173. Sodium 140, potassium 5, chloride 110, CO2 of 22, BUN 52, and creatinine 2.4. IMPRESSION: 1. Right-sided pneumonia. 2. Mhrzu-rz-jttdbaj diastolic heart failure. 3. Hypertension, hyperlipidemia, history of peripheral arterial disease. 4. Chronic kidney disease with history of renal cell carcinoma, status post nephrectomy. RECOMMENDATIONS: Continue current cardiac medications. Echocardiogram demonstrated severe LVH and impaired LV relaxation with preserved LVEF 50% to 55%. Lower extremity Doppler was without evidence of DVT. Continue diuretics. Watch volume status closely. Continue antibiotics per Primary Service. Blood pressure has been reasonably controlled. Continue current cardiac medications. Thank you for this consult. We will continue to follow. Lorin Garrett MD ABS/MODL /[id number]
[2018-08-23] MEDS: ATORVASTATIN 20 MG TAB PO SCH (20:40)
[2018-08-23] MEDS: SERTRALINE HCL 100 MG TAB PO SCH (20:40)
[2018-08-24] VITALS (7 sets, daily range): BP systolic 121–176; BP diastolic 69–98
[2018-08-24] MEDS: ALBUTEROL SULF 0.083% NEB SOLN 3 ML NEB NEB SCH ×6 (03:30→19:05)
[2018-08-24] MEDS: METHYLPREDNISOLONE SOD SUCC 40 MG/ML VIAL 1ML IV SCH ×3 (05:33→22:09)
[2018-08-24] MEDS: IPRATROPIUM BROMIDE 0.02% 2.5 ML NEB NEB SCH ×3 (07:00→19:05)
--- NOTE | 2018-08-24 09:10 | NUR ---
Pt received resting in bed. Alert and oriented x4 Ukrainian speaking only with right forearm saline lock #20. Pt noted with Edema +1 to lower extremities. Oriented to staff and surroundings, encouraged to press call calloway if help needed. Emotional support given. Fall precautions maintained. Will monitor
[2018-08-24] MEDS: ROPINIROLE HCL 0.25 MG TAB PO SCH (09:11)
[2018-08-24] MEDS: TAMSULOSIN HCL 0.4 MG CAP PO SCH (09:11)
[2018-08-24] MEDS: NIFEDIPINE CR 30 MG TAB PO SCH ×2 (09:11→17:43)
[2018-08-24] MEDS: CLOPIDOGREL BISULFATE 75 MG TAB PO SCH (09:11)
[2018-08-24] MEDS: GABAPENTIN 400 MG CAP PO SCH ×3 (09:11→20:37)
[2018-08-24] MEDS: LUBIPROSTONE 24 MCG CAP PO SCH ×2 (09:11→17:42)
[2018-08-24] MEDS: LISINOPRIL 20 MG TAB PO SCH (09:11)
[2018-08-24] MEDS: HYDRALAZINE HCL 25 MG TAB PO SCH ×2 (09:12→17:43)
--- NOTE | 2018-08-24 10:47 | Progress Note ---
DATE: Internal Medicine Progress Note We are going to discontinue the Lasix and the potassium due to the worsening renal insufficiency. We are going to start hydralazine 25 mg twice a day to avoid spike in blood pressure. We are going to repeat a BMP tomorrow. We are still waiting for insurance company to see if they can approve LTAC. ADDENDUM: MD ANDRIY Trinidad/ROXANNA /[id number]
--- NOTE | 2018-08-24 12:13 | Progress Note ---
DATE: 08/24/2018 Internal Medicine Progress Note SUBJECTIVE: The patient is doing well. No significant complaint. PHYSICAL EXAMINATION: LUNGS: Completely clear bilaterally, significantly improved from yesterday. VITAL SIGNS: Blood pressure 163/98, temperature 37.6, heart rates 87 per minute, respiratory rate 20 per minute, and oxygen saturation 97%. LABORATORY DATA: BMP; sodium 140, potassium 5.0, chloride 110, CO2 of 22, BUN 52, creatinine 2.40, glucose 114. CBC; white count 10.3, hemoglobin 10.8, hematocrit 35.2, platelet count of 173,000. PT 12.4, INR 0.89, PTT 29.1. AST 24, ALT 26, total bilirubin 0.6, alkaline phosphatase 98. IMPRESSION: 1. Bilateral pneumonia. 2. Acute on chronic renal failure stage 3. 3. Chronic obstructive pulmonary disease exacerbation. 4. History of renal cancer, status post nephrectomy. 5. Anemia of chronic disease. PLAN OF TREATMENT: Continue albuterol q.4 hours, Atrovent q.6 hours, albuterol and Atrovent q.3 hours as needed, cefepime once a day, furosemide 40 mg daily, sertraline 100 mg daily, Amitiza 24 mcg twice a day, vancomycin 1 g IV once a day, clonidine 0.1 mg q.6 hours, gabapentin 400 mg three times a day, Flomax 0.4 mg daily, methylprednisolone 20 mg IV q.8 hours, nifedipine 60 mg twice daily, Lipitor 80 mg daily, potassium 10 mEq daily twice a day, lisinopril 40 mg daily, Ambien 10 mg at night p.r.n. for sleep, Tylenol 650 mg q.6 hours as needed, Plavix 75 mg daily, Requip 0.5 mg daily, lactulose 20 g q.6 hours as needed. We are awaiting for approval from the insurance to see if the patient can go to the long-term care hospital due to the COPD exacerbation, bilateral pneumonia, and acute CHF, we are still waiting. Continue current treatment. Continue physical therapy. MD ANDRIY Trinidad/ROXANNA /[id number]
--- NOTE | 2018-08-24 14:14 | Progress Note ---
DATE: 08/24/2018 Cardiology Progress Note SUBJECTIVE: The patient denies chest pain or shortness of breath. OBJECTIVE: VITAL SIGNS: Temperature 96.7 degrees, pulse 79, respiratory rate 22, blood pressure 176/74, and oxygen saturation 94% on 2 L nasal cannula. GENERAL: Obese man, in no acute distress, awake and alert. LUNGS: Clear to auscultation bilaterally. No wheezes or crackles. CARDIOVASCULAR: Normal rate, regular rhythm. No murmur. Normal S1, S2. ABDOMEN: Soft, nontender. EXTREMITIES: Trace edema. CARDIAC MEDICATIONS: Hydralazine 25 mg p.o. b.i.d., lisinopril 40 mg p.o. daily, Plavix 75 mg p.o. daily, nifedipine 60 mg p.o. b.i.d., atorvastatin 80 mg p.o. at bedtime. LABORATORY DATA: None today. IMPRESSION: 1. Right-sided pneumonia. 2. Acute on chronic diastolic heart failure. 3. Hypertension. 4. Hyperlipidemia. 5. History of peripheral arterial disease. 6. Chronic kidney disease with history of renal cell carcinoma status post nephrectomy. RECOMMENDATIONS: Continue current cardiac medications. Lasix has been discontinued. We will monitor volume status closely. Echocardiogram demonstrated severe LVH with impaired LV relaxation and preserved LVEF 50%-55%. Lower extremity Doppler without evidence of DVT. Continue antibiotics per primary service. The patient's blood pressure remains hypertensive. We will add carvedilol. Note addition of hydralazine, LTAC evaluation is pending insurance authorization. Thank you for this consult. We will continue to follow. Lorin Garrett MD ABS/MODL /[id number]
--- NOTE | 2018-08-24 14:54 | NUR ---
Nutrition Screen Note RD Recommendation for Physician: - Continue Cardiac diet Plan of Care: RD following Nutrition reason for involvement: LOS Primary Diagnose(s): Bilateral PNA, dyspnea, orthopnea PMH: CHF, HTN, PAD, renal cancer with nephrectomy Ht: 65 in Wt: 210 lb BMI: 34.9 kg/m2 IBW: [address] Assessment: 08/24: 77 YOM admitted for PNA, seen today for LOS. Pt discussed during AM rounds, no issues reported. 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 Pt's family at bedside report some difficulties chewing due to missing teeth, so pt eats softer foods. Pt's family reports no GI distress CLINICAL SERVICES CONSULTANT and denies wt loss. Labs and meds reviewed. Will monitor and continue to follow. Current Diet: Cardiac Malnutrition Evaluation (08/24/18) The patient does not meet criteria for a specified degree of malnutrition at this time. Will re-evaluate at follow-up as appropriate. Diet Education Needs Assessment: Diet education not indicated. Nutrition Care Level: Low Signed: Yesenia Rosario RD, LD, [facility]
[2018-08-24] MEDS ORDERED: CARVEDILOL 12.5 MG TAB PO SCH (17:00)
[2018-08-24] MEDS: CEFEPIME 2 GM/NS 0.9% 100 ML 100 ML IV SCH (17:42)
[2018-08-24] MEDS: VANCOMYCIN 1GM/NS 250 ML 250 ML IV SCH (18:13)
--- NOTE | 2018-08-24 19:05 | NUR ---
Patient visited in room during nursing rounds. Patient alert and oriented x3. Pt is bruneian speaking only. No distress or discomfort noted. On 2L NC and scheduled IV antibiotics and IV steroid. Patient reminded to keep on wearing nasal cannula for oxygen supply. Otherwise condition stable. Daughter at bedside. Call calloway within reach. Will monitor closely.
[2018-08-24] MEDS: ZOLPIDEM TARTRATE 10 MG TAB PO PRN (20:35)
[2018-08-24] MEDS: ATORVASTATIN 40 MG TAB PO SCH (20:37)
[2018-08-24] MEDS: SERTRALINE HCL 100 MG TAB PO SCH (20:37)
[2018-08-25] VITALS (7 sets, daily range): BP systolic 136–175; BP diastolic 62–82
[2018-08-25] MEDS: CLONIDINE HCL 0.1 MG TAB PO PRN (00:17)
[2018-08-25] MEDS: ALBUTEROL SULF 0.083% NEB SOLN 3 ML NEB NEB SCH ×5 (04:05→20:38)
[2018-08-25] MEDS: METHYLPREDNISOLONE SOD SUCC 40 MG/ML VIAL 1ML IV SCH (06:12)
[2018-08-25 06:31] LABS: ANION GAP 13.5 mmol/L (8-16); CALCIUM 8.4 mg/dL (8.4-10.2); CREATININE, SERUM 2.09 mg/dL (0.72-1.25); POTASSIUM 4.5 mmol/L (3.5-5.1)
[2018-08-25] MEDS: IPRATROPIUM BROMIDE 0.02% 2.5 ML NEB NEB SCH ×4 (07:00→20:38)
--- NOTE | 2018-08-25 08:20 | NUR ---
Pt received resting in bed. All meds given as ordered. Pt for possible transfer to [facility] today. Will monitor
[2018-08-25] MEDS: LUBIPROSTONE 24 MCG CAP PO SCH ×2 (08:21→17:13)
[2018-08-25] MEDS: HYDRALAZINE HCL 25 MG TAB PO SCH ×2 (08:21→17:13)
[2018-08-25] MEDS: LISINOPRIL 20 MG TAB PO SCH (08:22)
[2018-08-25] MEDS: CLOPIDOGREL BISULFATE 75 MG TAB PO SCH (08:22)
[2018-08-25] MEDS: GABAPENTIN 400 MG CAP PO SCH ×3 (08:22→22:03)
[2018-08-25] MEDS: NIFEDIPINE CR 30 MG TAB PO SCH ×2 (08:22→17:14)
[2018-08-25] MEDS: TAMSULOSIN HCL 0.4 MG CAP PO SCH (08:22)
[2018-08-25] MEDS: CARVEDILOL 3.125 MG TAB PO SCH ×2 (08:22→17:13)
[2018-08-25] MEDS: ROPINIROLE HCL 0.25 MG TAB PO SCH (08:22)
--- NOTE | 2018-08-25 12:06 | Progress Note ---
DATE: Internal Medicine Progress Note SUBJECTIVE: The patient has been feeling better today. PHYSICAL EXAMINATION: HEART: Showed regular rhythm. No murmur or added sound. LUNGS: Clear bilaterally. ABDOMEN: Soft. EXTREMITIES: Show edema on the left lower extremity. Homans sign is negative. VITAL SIGNS: Blood pressure 140/62, temperature is 97.1, heart rate 69 per minute, respiratory rate 20 per minute, and oxygen saturation is 88%. LABORATORY DATA: BMP; sodium 137, potassium 4.5, chloride 103, CO2 25, BUN 54, creatinine 2.09, glucose 134, calcium 8.4, and beta natriuretic peptide 255.6. CBC showed white count 10.3, hemoglobin 10.8, hematocrit 35.2, and platelet count 173,000. Last chest x-ray showed reticulation in the lateral left lung base may be due to infiltrate, no progression compared to prior exam, bibasilar atelectasis, cardiomegaly, no ocular congestion. FINAL IMPRESSION: 1. Bilateral pneumonia. 2. Acute diastolic congestive heart failure. 3. History of peripheral vascular disease. 4. Acute on chronic renal failure, stage 3, which is slightly worse. 5. Leg edema. 6. Chronic obstructive pulmonary disease exacerbation. 7. Renal cancer. PLAN OF TREATMENT: Continue current medication regimen, which includes cefepime 2 g IV once a day. The patient has been denied by insurance, I am going to re-appeal to see if the patient can to go LTAC. Continue vancomycin 1 g IV once daily, Tylenol 650 mg p.o. q.6 hours as needed for mild pain or fever, albuterol q.4 hours, albuterol and Atrovent q.3 hours as needed for shortness of breath, Lipitor 80 mg daily, carvedilol 6.25 mg twice a day, clonidine 0.1 mg q.6 hours as needed for hypertension, Plavix 75 mg daily, gabapentin 400 mg three times a day, hydralazine 25 mg twice a day, [place] 5/325 mg tablet q.6 hours as needed, lactulose 20 g q.6 hours as needed for constipation, lisinopril 40 mg daily, Amitiza 24 mcg twice a day as needed for constipation, Solu-Medrol 20 mg IV q.8 hours, nifedipine 60 mg twice a day, Zoloft 100 mg daily, Flomax 0.4 mg daily, and Ambien 10 mg at night p.r.n. for insomnia. He also had a diagnosis of COPD exacerbation of course. As I said, the insurance as usual denied a transfer to a long-term care hospital, which I think this patient is appropriate because of the bilateral pneumonia, COPD exacerbation, and acute congestive heart failure. I am also going to order a Venous Doppler of his left lower extremity to rule out DVT. MD ANDRIY Trinidad/ROXANNA /[id number]
--- NOTE | 2018-08-25 14:51 | Progress Note ---
DATE: 08/25/2018 Cardiology Progress Note SUBJECTIVE: The patient denies chest pain or shortness of breath. OBJECTIVE: VITAL SIGNS: Temperature 96.3 degrees, pulse 68, respiratory rate 18, blood pressure 136/66, oxygen saturation 97% on 3 L nasal cannula. GENERAL: Obese man in no acute distress. Awake and alert. LUNGS: Clear to auscultation bilaterally. No wheezes or crackles. CARDIOVASCULAR: Normal rate, regular rhythm. No murmur. Normal S1, S2. ABDOMEN: Soft, nontender. EXTREMITIES: Trace edema with 1+ pitting edema on the left. CARDIAC MEDICATIONS: Carvedilol 6.25 mg p.o. b.i.d., lisinopril 40 mg p.o. daily, Plavix 75 mg p.o. daily, nifedipine 60 mg p.o. b.i.d., hydralazine 25 mg p.o. b.i.d., atorvastatin 80 mg p.o. at bedtime. LABORATORY DATA: Sodium 137, potassium 4.5, chloride 103, CO2 of 25, BUN 54, creatinine 2.09. IMPRESSION: 1. Right-sided pneumonia. 2. Acute on chronic diastolic heart failure. 3. Hypertension. 4. Hyperlipidemia. 5. History of peripheral arterial disease. 6. Chronic kidney disease with history of renal cell carcinoma status post nephrectomy. RECOMMENDATIONS: Continue current cardiac medications. Monitor volume status closely. Echocardiogram demonstrated severe LVH with impaired LV relaxation and preserved LVEF 50% to 55%. Lower extremity Doppler was without evidence of DVT. Continue antibiotics per primary service. The patient's blood pressure is improved. Continue current antihypertensive therapies. Thank you for this consult. We will continue to follow. Lorin Garrett MD ABS/MODL /[id number]
[2018-08-25] MEDS ORDERED: METHYLPREDNISOLONE SOD SUCC 40 MG/ML VIAL 1ML IV SCH (17:00)
[2018-08-25] MEDS: VANCOMYCIN 1GM/NS 250 ML 250 ML IV SCH (17:13)
[2018-08-25] MEDS: CEFEPIME 2 GM/NS 0.9% 100 ML 100 ML IV SCH (17:13)
--- NOTE | 2018-08-25 19:30 | NUR ---
Patient visited in room during nursing rounds. Patient alert and oriented x3. Pt and family aware pt will be transferred to [facility] per MD order for ferry terminal agent IV antibiotics. Pt condition stable. On 3L NC. Will monitor pt closely until transfer. EMT to be called by Appeals Examiner.
[2018-08-25 19:48] LABS: BILIRUBIN,URINE NEGATIVE (NEGATIVE); CLARITY,URINE SL CLOUDY (CLEAR); COLOR,URINE YELLOW (YELLOW); KETONES,URINE NEGATIVE (NEGATIVE); LEUKOCYTE ESTERASE ,URINE NEGATIVE (NEGATIVE); NITRITE,URINE NEGATIVE (NEGATIVE); PROTEIN,URINE DIPSTICK 2+ (NEGATIVE); URINE UROBILINOGEN 0.2 mg/dL (0.2 - 1)
[2018-08-25 20:01] LABS: AMORPHOUS SEDIMENT,URINE MODERATE (FEW); BACTERIA,URINE FEW /HPF; EPITHELIAL CELLS,URINE FEW /LPF; HYALINE CASTS 0-1 (0-1); RBC,URINE 0-5 /HPF (0-5)
--- NOTE | 2018-08-25 20:05 | NUR ---
Report called to Natty Pimentel (accepting nurse at [facility]). 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
[2018-08-25 20:11] LABS: CREATININE,URINE RANDOM 97.57 mg/dL (63-166)
[2018-08-25 20:27] LABS: TOTAL PROTEIN, URINE 384.1 mg/dL (1-14)
--- NOTE | 2018-08-25 21:53 | Consultation ---
DATE OF CONSULTATION: 08/25/2018 Renal Consultation REASON FOR CONSULTATION: Acute kidney injury. HISTORY OF PRESENT ILLNESS: A 77-year-old male with a history of hypertension and chronic kidney disease, who presented to [facility] with shortness of breath. The patient is a poor historian and history is taken from his grand daughter as well as medical record. The patient developed shortness of breath and a productive cough few days prior to presenting to the hospital. The patient's symptoms got progressively worse and he began wheezing and was brought to [facility], was admitted. Pulmonary as well as Cardiology were consulted. The patient was found to have multiple patchy opacities consistent with consolidation and was started on IV antibiotics, nebulizers. Cardiology was consulted for congestive heart failure. The patient developed worsening kidney function and Nephrology consultation was called. The patient denies having any kidney disease, however, he has a history of kidney cancer, status post nephrectomy and is noted to have history of chronic kidney disease in his medical record. The patient denies taking any hgyq-xgd-jhqpuft pain medicines except the Tylenol. REVIEW OF SYSTEMS: As above. Positive shortness of breath and chest pain, which have improved. No swelling. All other systems negative. PAST MEDICAL HISTORY: 1. Hypertension. 2. Chronic kidney disease, stage 3. 3. Dyslipidemia. 4. Peripheral arterial disease. 5. History of renal cell carcinoma, status post nephrectomy. PAST SURGICAL HISTORY: Nephrectomy, as above. SOCIAL HISTORY: No tobacco. No alcohol. No IV drugs. FAMILY HISTORY: No family history of kidney disease. ALLERGIES: NO KNOWN DRUG ALLERGIES. CURRENT MEDICATIONS: See list, includes lisinopril. PHYSICAL EXAMINATION: VITAL SIGNS: Blood pressure 136/66, pulse 68, respiratory rate 18, temperature 96.3, and respiratory rate 18. GENERAL: No apparent distress. HEENT: Oropharynx is clear. No scleral icterus. No peripheral edema. NECK: Supple. No elevation in jugular venous pressure. No lymphadenopathy. CHEST: Decreased breath sounds at bases, left greater than right, some expiratory phase. ABDOMEN: Soft. Positive bowel sounds. No tenderness. No rebound. EXTREMITIES: Trace edema. No clubbing. No cyanosis. SKIN: Warm. IMAGING: Renal ultrasound, left kidney measures 12.8 cm with several renal cysts. Urinary bladder was unremarkable. Chest x-ray shows reticulation in the lateral left lung base due to infiltration, no progression compared to previous exam. Cardiomegaly with no vascular congestion. LABORATORY DATA: Sodium 137, potassium 4.5, chloride 103, CO2 25, BUN 54, and creatinine 2.09. Creatinine 08/08/2018 was 2.37. ASSESSMENT AND PLAN: 1. Acute kidney injury on stage 4 chronic kidney disease, suspect due to ongoing infection and congestive heart failure. Continue with current medications. Renal ultrasound showed solitary kidney. We will check urinalysis and urine spot protein to creatinine ratio and continue MARIA ALEJANDRA inhibitor. For now, we will avoid all other nephrotoxic medications including NSAIDs. 2. Lytes, acceptable. 3. Euvolemic on exam. 4. Pneumonia. Continue current antibiotics. Pulmonary following. 5. Anemia, suspect secondary to chronic kidney disease. MD ANICETO Swenson/ROXANNA /[id number]
[2018-08-25] MEDS: ATORVASTATIN 40 MG TAB PO SCH (22:02)
[2018-08-25] MEDS: SERTRALINE HCL 100 MG TAB PO SCH (22:03)
--- NOTE | 2018-08-25 23:22 | NUR ---
Patient left unit with EMS via stretcher bed. Pt will travel via ambulance to [facility] and will be admitted to ICU Rm 7 under care of nurse Natty Pimentel. Patient left unit in stable condition without any complaint of distress or pain.
== END 2018-08-25 23:25 | DRG 291 ==
LOC: ER 10:19 → ERHOLD 15:17 → MED/SURG3 16:09
PROVIDERS: ADMIT Internal Medicine; ATTEND Internal Medicine
DX: I13.0 Hypertensive heart and chronic kidney disease with heart failure and stage 1 through stage 4 chronic kidney disease, or unspecified chronic kidney disease (principal); J18.9 Pneumonia, unspecified organism; I50.33 Acute on chronic diastolic (congestive) heart failure; N17.9 Acute kidney failure, unspecified; J44.0 Chronic obstructive pulmonary disease with (acute) lower respiratory infection; J44.1 Chronic obstructive pulmonary disease with (acute) exacerbation; Z95.820 Peripheral vascular angioplasty status with implants and grafts; E66.9 Obesity, unspecified; Z68.34 Body mass index [BMI] 34.0-34.9, adult; Z91.19 Patient's noncompliance with other medical treatment and regimen; Z85.528 Personal history of other malignant neoplasm of kidney; N18.3 Chronic kidney disease, stage 3 (moderate); J45.909 Unspecified asthma, uncomplicated; N28.1 Cyst of kidney, acquired; E27.9 Disorder of adrenal gland, unspecified; Z90.5 Acquired absence of kidney; K59.00 Constipation, unspecified; R60.0 Localized edema; D63.8 Anemia in other chronic diseases classified elsewhere; Z87.891 Personal history of nicotine dependence
CPT/HCPCS: 36415; 36600; 71045; 71046; 71250; 76770; 80048; 80053; 80202; 81001; 82550; 82553; 82570; 82805; 83880; 84156; 84484; 85025; 85610; 85730; 86021; 87040; 87070; 87086; 87205; 87400; 93005; 93306; 93925; 93971; 94640; 99284; J0456; J0696; J1940; J2920; J3370; J7030

== ENCOUNTER 2019-03-01 12:15 | Inpatient (IN) | payer MEDICARE, OTHER ==
[~2019-03-01] VITALS: Ht 165.1 cm; Wt 101.2 kg
[~2019-03-01 12:15] MED LIST changes: +ZOLPIDEM TARTRA10 MG PO
--- NOTE | 2019-03-01 12:24 | NUR ---
RCD PT BY DIRECT ADMISSION PT IS ALERT AND ORIENTED VITALS CHECKED PT RESTING ON BED WITH O2 2L BY NC ADMISSION IV STARTED ON THE LEFT HAND WITH18 G ,ADMISSION ASSESSMENT DONE FAMILY AT BED SIDE THEY SPEAKING POLISH PT HAVE BILATERAL LOWER EXTREMITY EDEMA INSTRUCTED PT AND FAMILY REGARDING HOSPITAL POLICY AND ROUTINE BED LOW AND LOCKED CALL LIGHT IN REACH
[2019-03-01 13:12] VITALS: BP 162/88
[2019-03-01] MEDS: METHYLPREDNISOLONE SOD SUCC 125 MG/2ML VIAL IV SCH ×2 (14:00→20:28)
[2019-03-01] MEDS: FUROSEMIDE INJ 10 MG/ML 4 ML VIAL IV SCH ×2 (14:00→20:28)
[2019-03-01 14:01] VITALS: BP 162/88
[2019-03-01 14:07] VITALS: BP 162/88
[2019-03-01] MEDS ORDERED: FERROUS SULFAT325 MG PO (14:16)
[2019-03-01] MEDS ORDERED: SPIRIVA18 MCG INH (14:16)
[2019-03-01] MEDS ORDERED: OMEPRAZOLE40 MG PO (14:16)
[2019-03-01] MEDS ORDERED: HYDRALAZINE HCL25 MG PO (14:16)
[2019-03-01] MEDS ORDERED: CARVEDILOL3.125 MG PO (14:16)
[2019-03-01] MEDS ORDERED: AMITIZA24 MCG PO (14:16)
[2019-03-01] MEDS ORDERED: ALLOPURINOL100 MG PO (14:16)
[2019-03-01 14:42] LABS: BASOPHILS % 0.4 % (0.0-1.0); EOSINOPHILS # (AUTO) 0.2 (0.0-0.4); EOSINOPHILS % 3.3 % (0.0-6.0); HEMATOCRIT 33.3 % (38.2-49.6); HEMOGLOBIN 10.4 g/dL (14.0-18.0); LYMPHOCYTES # (AUTO) 0.6 (1.0-3.2); LYMPHOCYTES % 8.2 % (18.0-39.1); MEAN CORPUSCULAR HEMOGLOBIN 26.9 pg (28-32); MEAN CORPUSCULAR HGB CONC 31.2 g/dL (31-35); MONOCYTES # (AUTO) 0.6 (0.2-0.8); MONOCYTES % 8.3 % (4.4-11.3); NEUTROPHILS # (AUTO) 5.8 (2.1-6.9); NEUTROPHILS % 79.1 % (38.7-80.0); PLATELET COUNT 136 x10e3/uL (140-360); RED BLOOD COUNT 3.87 x10e6/uL (4.3-5.7); RED CELL DISTRIBUTION WIDTH 16.3 % (11.7-14.4)
[2019-03-01] MEDS ORDERED: ACETAMINOPHEN 325 MG TAB PO PRN (14:45)
[2019-03-01 14:56] LABS: ANION GAP 15.3 mmol/L (8-16); CALCIUM 9.3 mg/dL (8.4-10.2); CREATININE, SERUM 2.74 mg/dL (0.72-1.25); POTASSIUM 4.3 mmol/L (3.5-5.1)
[2019-03-01] MEDS ORDERED: NON-FORMULARY MEDICATION (Zolpidem Tartrate 10 MG) PO PRN (15:15)
[2019-03-01] MEDS ORDERED: CLONIDINE HCL 0.2 MG TAB PO SCH (15:15)
[2019-03-01] MEDS ORDERED: POTASSIUM CHLORIDE 20 MEQ TAB CR PO SCH (15:30)
[2019-03-01 16:19] VITALS: BP 165/70
--- NOTE | 2019-03-01 16:25 | Diagnostic Imaging Report ---
EXAMINATION: CHEST 2 VIEWS INDICATION: COPD COMPARISON: Multiple prior chest radiographs most recently of 08/21/2018 FINDINGS: LINES/TUBES:None LUNGS:The lungs are mildly hyperinflated. Patchy bibasilar opacities right greater than left, most likely subsegmental atelectasis. PLEURA:No pleural effusion or pneumothorax. MEDIASTINUM:Cardiomediastinal silhouette is stably enlarged. Atherosclerotic calcifications of the thoracic aorta. BONES/SOFT TISSUES:No acute osseous injury. ABDOMEN:No free air under the diaphragm. IMPRESSION: Mildly hyperinflated lungs. Patchy bibasilar opacities most likely subsegmental atelectasis. Unchanged cardiomegaly. Signed by: Justice Leon MD on 03/01/2019 4:22 PM
[2019-03-01] MEDS: OMEGA PO SCH (17:00)
[2019-03-01] MEDS ORDERED: CARVEDILOL 3.125 MG TAB PO SCH (17:00)
[2019-03-01] MEDS: NIFEDIPINE CR 30 MG TAB PO SCH (17:00)
[2019-03-01] MEDS: LUBIPROSTONE 24 MCG CAP PO SCH (17:00)
--- NOTE | 2019-03-01 18:42 | NUR ---
PT RESTING ON BED BED SIDE EPORT GIVEN TO ONCOMING NURSE
[2019-03-01 19:18] VITALS: BP 123/62
--- NOTE | 2019-03-01 19:18 | NUR ---
PT IS RESTING IN BED. RESPIRATION IS EVEN AND UNLABORED, NO DISTRESS NOTED. BED IN THE LOWEST POSITION, LOCKED, BED ALARM ON, AND CALL LIGHT WITHIN REACH. WILL CONTINUE TO MONITOR.
[2019-03-01 20:00] VITALS: BP 123/62
[2019-03-01] MEDS: HYDRALAZINE HCL 100 MG TABLET PO SCH (20:28)
[2019-03-01] MEDS: SERTRALINE HCL 100 MG TAB PO SCH (20:28)
[2019-03-01] MEDS: GABAPENTIN 400 MG CAP PO SCH (20:28)
[2019-03-01] MEDS: ROPINIROLE HCL 0.25 MG TAB PO SCH (20:28)
[2019-03-01] MEDS ORDERED: ZOLPIDEM TARTRATE 10 MG TAB PO PRN (21:00)
[2019-03-01] MEDS ORDERED: HYDRALAZINE HCL 25 MG TAB PO SCH ×2 (22:00)
--- NOTE | 2019-03-01 23:29 | Consultation ---
DATE OF CONSULTATION: 03/01/2019 REASON FOR CONSULTATION: CHF. CHIEF COMPLAINT: Shortness of breath. HISTORY OF PRESENT ILLNESS: This is a 78-year-old male, very poor historian with history of CAD, status post left heart catheterization in 2015, showing a 60% mid LAD disease, peripheral artery disease with extensive procedures done by Dr. Rao, chronic kidney disease stage 4, AAA, status post EVAR in 2013; COPD on home oxygen, hypertension, and BPH. The patient presents to PCP, Dr. Golden with complaints of shortness of breath for several days, was admitted to the hospital for COPD exacerbation. Cardiology was consulted to evaluate the patient's medical history/cardiac history. The patient is seen in room, reports his breathing is much better, reports 3-4 days of worsening shortness of breath. Therefore, he went to his PCP this morning, in which she was told that he needed to go to the hospital. He was directly admitted. The patient reports he is feeling much better after receiving inhalers and diuretic therapy. The patient denies any chest pains, any orthopnea, or any PND. Reports productive cough, yellowish to white in nature for the past several days. Denies any fevers or chills or any sick contacts. PAST MEDICAL HISTORY: 1. CAD, status post left heart catheterization in 2016 with a 60% mid LAD disease and about a 40% left circ disease. 2. Peripheral vascular disease. 3. Hypertension. 4. Hyperlipidemia. 5. AAA, status post EVAR. 6. Chronic kidney disease, stage 4, status post right nephrectomy. 7. COPD, on home oxygen. PAST SURGICAL HISTORY: 1. Right renal mass, status post right nephrectomy in 2013. 2. Left heart catheterization in 2015. 3. Multiple peripheral revascularizations done by Dr. Rao, most recent in March 2018. 4. Status post right and left GSV vein ablation at [facility]. FAMILY HISTORY: Mother at age 85, apparently from old age. Father at age 96 of old age. SOCIAL HISTORY: He is . 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 He is a former smoker, quit in 2014. Denies any alcohol use. ALLERGIES: NO ALLERGIES. HOME MEDICATIONS: Include: 1. Plavix 75 mg once a day. 2. Lipitor 80 mg once a day. 3. Lisinopril 20 mg once a day. 4. Nifedipine 60 mg daily. 5. Clonidine 0.1 mg daily. 6. Flomax 0.4 mg daily. 7. Gabapentin 200 mg t.i.d. 8. Sertraline 50 mg daily. 9. Omeprazole 40 mg daily. REVIEW OF SYSTEMS: GENERAL: Denies any weight changes, fatigue, weakness, fevers, chills, or night sweats. SKIN: No rashes or sores reported. HEENT: Denies any nausea, vomiting, vision changes, any blurred vision, double vision, earaches, epistaxis, sore throat, bleeding gums, or stiff necks. CARDIAC: Denies any chest pain. Denies any palpitations. Positive for dyspnea on exertion. Denies any orthopnea or PND. Positive for intermittent lower extremity edema. RESPIRATORY: Positive for shortness of breath. Positive for wheezing. Positive for cough, productive. Denies any hemoptysis. GI: Reports good appetite. No nausea, vomiting, diarrhea, constipation, or melena. URINARY: Positive for frequency and urgency. Denies any hematuria or dysuria. VASCULAR: Positive for lower extremity edema. MUSCULOSKELETAL: Positive for generalized joint pains and back pain. NEUROLOGIC: Denies any tremors, weakness, paralysis, blackout, or seizures. HEMATOLOGY: Denies any bruising. No anemia. ENDOCRINE: Denies any heat or cold intolerance, any polyuria, polydipsia, or polyphagia. PHYSICAL EXAMINATION: VITAL SIGNS: Height 65 inches, weight 210 pounds, BMI 35. Temperature 99.4, pulse 109, respiratory rate 18, blood pressure 162/88, and sat 98% on 3 L nasal cannula. GENERAL: Appears stated age, unreliable informant. The patient is a poor historian. Unable to give much details. SKIN: No rashes or bruises noted. HEENT: Normocephalic. Pupils are equal and reactive. Extraocular movements intact. Trachea midline. No JVD. No carotid bruits. Oral mucosa pink. HEART: Regular rate and rhythm. No murmurs, rubs, or clicks noted. PMI about 4th and 5th intercostal space. LUNGS: Followup breath sounds with wheezing throughout. Poor airway entry. ABDOMEN: Soft, nontender, and nondistended. No organomegaly noted. MUSCULOSKELETAL: Good muscle strength throughout. +1 lower extremity edema. VASCULAR: +2 bilateral radial pulses, +1 DP and PT pulses bilaterally. NEUROLOGIC: Cranial nerves II through XII seem intact. LABORATORY DATA: Sodium 136, potassium 4.3, chloride 99, BUN 48, creatinine 2.7. BNP 74. White count 7, hemoglobin 10.4, hematocrit 33, and platelets 136. Chest x-ray showing mild hyperinflated lungs, then with patchy bibasilar opacities. No EKG in chart. ASSESSMENT: 1. Chronic obstructive pulmonary disease exacerbation. 2. Coronary artery disease. 3. Peripheral vascular disease. 4. Chronic kidney disease, stage 4. 5. Hypertension. 6. Hyperlipidemia. PLAN: 1. The patient presents with COPD exacerbation. 2. BNP only 74. No heart failure. The patient recently had an echo done in August 2018, with EF of 55%. 3. We will continue the patient's cardiac medications. However, we will recommend avoiding MARIA ALEJANDRA or ARB therapy also. 4. We will continue to monitor the patient. 5. We will follow the patient and further recommendations as clinical course dictates. Thank you very much for this consult. Dictated by Antonio Delgado NP Kings Ortiz MD DC/MODL /[id number]
[2019-03-02] VITALS (8 sets, daily range): BP systolic 101–155; BP diastolic 59–80
[2019-03-02] MEDS ORDERED: SODIUM CHLORIDE 0.9% 250ML 250 ML ONE (00:26)
[2019-03-02] MEDS: AZITHROMYCIN 500MG/NS 250 ML 250 ML IV SCH ×2 (00:29→23:52)
[2019-03-02] MEDS ORDERED: TIOTROPIUM 18 MCG INH POWDER INH SCH (06:00)
[2019-03-02] MEDS: METHYLPREDNISOLONE SOD SUCC 125 MG/2ML VIAL IV SCH ×2 (06:03→14:00)
[2019-03-02] MEDS: HYDRALAZINE HCL 100 MG TABLET PO SCH ×3 (06:03→21:19)
--- NOTE | 2019-03-02 06:32 | Consultation ---
DATE OF CONSULTATION: 03/01/2019 Pulmonary Medicine Consult REASON FOR REFERRAL: Shortness of breath. HISTORY OF PRESENT ILLNESS: This is a pleasant 78-year-old gentleman with shortness of breath. The patient was under outpatient followup. He started having more difficulty recently. He was having productive cough for few days, also some wheezing. He has secretions in his airway he feels, but he cannot expectorate them. They are very . The patient with blood work demonstrating 7 white count, creatinine 2.74, which is only mildly above his baseline. His chest x-ray with scattered bibasilar reticular opacities/atelectasis. PAST MEDICAL HISTORY: Hypertension; CKD stage 3; dyslipidemia; peripheral vascular disease; history of renal cell carcinoma, status post nephrectomy; perennial allergies; AAA repair; hiatal hernia repair; coronary artery disease, status post stents; MARCY; COPD; mild GERD; and chronic hypoxemia. MEDICATIONS: Medication list reviewed per electronic record. Includes; potassium, Linzess, allopurinol, Lipitor, carvedilol, clonidine, Plavix, iron, Lasix, gabapentin, hydralazine, lisinopril, Amitiza, nifedipine, omeprazole, ropinirole, sertraline, tamsulosin, Spiriva, and Ambien. ALLERGIES: NO KNOWN DRUG ALLERGIES. SOCIAL HISTORY: No IV alcohol. No drugs. The patient smoked from age 9 to 67, one pack per day. 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 FAMILY HISTORY: Noncontributory to this condition. REVIEW OF SYSTEMS: GENERAL: No weight changes. OPHTHALMOLOGIC: No double vision. ENT: No mouth ulcers. ENDOCRINE: No known adrenal insufficiency. CARDIAC: No heart attacks. PULMONARY: No asthma is known. ABDOMEN: Without any ulcers. : No blood in urine. MUSCULOSKELETAL: Mild arthritis. NEUROLOGIC: No seizures. DERMATOLOGIC: No rashes. PHYSICAL EXAMINATION: VITAL SIGNS: Noted and reviewed per the chart record. GENERAL: In no acute distress, alert and calm, although there is mildly increased work of breathing. HEENT: Normocephalic and atraumatic. NECK: Supple. Throat midline. LUNGS: Bilateral air entry, [id number] wheezing, rare rhonchi. CARDIOVASCULAR: S1 and S2. No murmurs, rubs, or gallops. ABDOMEN: Soft and nontender. EXTREMITIES: No clubbing. No cyanosis. There is 1+ edema. INTEGUMENT: No rash. No purpura. LABORATORY DATA: Labs reviewed per the chart record. IMPRESSION AND PLAN: 1. Chronic obstructive pulmonary disease/chronic bronchitis with exacerbation. 2. Perennial allergies. 3. Very mild gastroesophageal reflux disease. 4. History of hiatal hernia, status post repair. 5. Obstructive sleep apnea. 6. Hypertension. 7. Peripheral vascular disease, history of AAA repair. 8. Coronary artery disease, status post stents. 9. Chronic hypoxemia on 5 L/minutes outpatient. 10. Chronic kidney disease. 11. History of renal cell carcinoma, status post nephrectomy. 12. Former smoker. 13. Continue steroids. Bronchodilators. The patient may be reasonable to escalate therapy. Review theophylline or Daliresp. N-acetylcysteine is reasonable as outpatient. Aggressive PT and OT as per GI after discharge in pulmonary rehabilitation program. Continue oxygen therapy. Antibiotics for acute phase and consideration for chronic antibiotic for this COPD. Thank you very much, Dr. Golden for this consult. Please call for any questions. MD DANIEL Hernandez/ROXANNA /[id number]
[2019-03-02 06:43] LABS: BASOPHILS % 0.1 % (0.0-1.0); HEMATOCRIT 36.3 % (38.2-49.6); HEMOGLOBIN 11.6 g/dL (14.0-18.0); LYMPHOCYTES # (AUTO) 0.7 (1.0-3.2); LYMPHOCYTES % 7.8 % (18.0-39.1); MEAN CORPUSCULAR VOLUME 84.4 fL (81-99); MONOCYTES # (AUTO) 0.3 (0.2-0.8); MONOCYTES % 3.3 % (4.4-11.3); NEUTROPHILS # (AUTO) 7.9 (2.1-6.9); NEUTROPHILS % 87.7 % (38.7-80.0); PLATELET COUNT 145 x10e3/uL (140-360)
[2019-03-02 07:09] LABS: ALBUMIN 3.1 g/dL (3.5-5.0); ALBUMIN/GLOBULIN RATIO 0.8 (0.8-2.0); ANION GAP 14.3 mmol/L (8-16); CALCIUM 9.6 mg/dL (8.4-10.2); CREATININE, SERUM 2.74 mg/dL (0.72-1.25); POTASSIUM 4.3 mmol/L (3.5-5.1)
--- NOTE | 2019-03-02 07:10 | NUR ---
RCD PT AT BED PT IS ALERT AND ORIENTED RESTING ON BED NO SIGNS OF ANY DISTRESS NOTED IV PATENT BY SALINE FLUSH BED LOW AND LOCKED CALL LIGHT IN REACH
[2019-03-02] MEDS: IPRATROPIUM BROMIDE 0.02% 2.5 ML NEB NEB SCH ×3 (07:25→23:30)
[2019-03-02] MEDS: ALBUTEROL SULF 0.083% NEB SOLN 3 ML NEB NEB PRN ×2 (07:25→15:22)
[2019-03-02 07:29] LABS: THYROID STIMULATING HORMONE 0.652 uIU/mL (0.350-4.940)
[2019-03-02] MEDS: PANTOPRAZOLE SOD 40 MG TABEC PO SCH (07:30)
[2019-03-02] MEDS: LUBIPROSTONE 24 MCG CAP PO SCH ×2 (08:00→17:00)
[2019-03-02] MEDS: TAMSULOSIN HCL 0.4 MG CAP PO SCH (09:00)
[2019-03-02] MEDS: FERROUS SULFATE 325 MG TAB PO SCH (09:00)
[2019-03-02] MEDS ORDERED: ATORVASTATIN 20 MG TAB PO SCH (09:00)
[2019-03-02] MEDS: ATORVASTATIN 40 MG TAB PO SCH (09:00)
[2019-03-02] MEDS ORDERED: POTASSIUM CHLORIDE 20 MEQ TAB CR PO SCH ×2 (09:00→15:10)
[2019-03-02] MEDS: CLOPIDOGREL BISULFATE 75 MG TAB PO SCH (09:00)
[2019-03-02] MEDS: OMEGA PO SCH ×2 (09:00→17:00)
[2019-03-02] MEDS: ALLOPURINOL 100 MG TAB PO SCH (09:00)
[2019-03-02] MEDS ORDERED: AMLODIPINE BESYLATE 5 MG TAB PO SCH (09:00)
[2019-03-02] MEDS ORDERED: FUROSEMIDE 40 MG TAB PO SCH (09:00)
[2019-03-02] MEDS: FUROSEMIDE INJ 10 MG/ML 4 ML VIAL IV SCH ×2 (09:00→21:19)
[2019-03-02] MEDS: NIFEDIPINE CR 30 MG TAB PO SCH ×2 (09:00→17:00)
[2019-03-02] MEDS: GABAPENTIN 400 MG CAP PO SCH ×3 (09:00→21:19)
[2019-03-02] MEDS ORDERED: LISINOPRIL 10 MG TAB PO SCH (09:00)
[2019-03-02] MEDS ORDERED: LISINOPRIL 20 MG TAB PO SCH (09:00)
--- NOTE | 2019-03-02 14:12 | Diagnostic Imaging Report ---
EXAM: Renal Ultrasound INDICATION: ^FOLLOW UP CYSTS AND RCC ^[id number] ^[id number] COMPARISON: Multiple prior renal ultrasounds most recently of 08/19/2018 TECHNIQUE: Transverse and longitudinal images of the kidneys and bladder were obtained. FINDINGS: Right Kidney: Absent. Left Kidney: Length: 12.9 cm Appearance: Normal echogenicity. Collecting system: No hydronephrosis Stones: None Cyst/Mass: Left upper pole renal cyst measures 2.2 x 1.6 x 1.4 cm (previously 1.3 x 1.3 x 1.3 cm) with an internal septation and no associated vascularity. Medial midpole simple cyst measures 2.9 x 2.6 x 2.5 cm, essentially unchanged from the prior study allowing for differences in technique. Lower pole simple cyst measures 2.3 x 2.4 x 2.7 cm, also essentially unchanged. Bladder: Prevoid volume estimate of 148.8 cc. No mass or calculi. Left ureteral jet not seen. IMPRESSION: Left renal cysts as above. The upper pole Bosniak 2 cyst with thin internal septation measures 2.2 x 1.6 x 1.4 cm, increased from 08/19/2018 at which point it measured 1.3 x 1.3 x 1.3 cm. Signed by: Justice Leon MD on 03/02/2019 2:08 PM
[2019-03-02] MEDS: LINACLOTIDE 145 MCG CAPSULE PO SCH (16:00)
--- NOTE | 2019-03-02 18:41 | NUR ---
PT RESTING ON BED BED SIDE EPORT GIVEN TO ONCOMING NURSE
--- NOTE | 2019-03-02 19:05 | NUR ---
Received patient awake on bed, not in distress, family members at the bedside, call light within easy reach, advised to call for assistance when needed. Will continue to monitor accordingly
--- NOTE | 2019-03-02 20:45 | NUR ---
PULMONARY MEDICINE DATE OF ENCOUNTER: 03/02/2019 SUBJECTIVE: On oxygen 2 L/min by NC feels somewhat better still wheezing eats REVIEW OF SYSTEMS: No headaches, no chest pain PHYSICAL EXAMINATION: VITAL SIGNS: Noted and reviewed per the chart record. GENERAL: NAD, alert and calm HEENT: Normocephalic, atraumatic. NECK: Supple. Throat midline. LUNGS: Bilateral air entry, mild wheezing, rare rhonchi. CARDIOVASCULAR: S1 and S2. No murmurs, rubs, or gallops. ABDOMEN: Soft and nontender. EXTREMITIES: No clubbing. No cyanosis. 1+ edema. INTEGUMENT: No rash. No purpura. LABORATORY DATA: cr 2.74, 4.3 k. 9 wbc, 36 hct, plt 145 IMPRESSION AND PLAN: 1. Chronic obstructive pulmonary disease/chronic bronchitis with exacerbation. 2. Perennial allergies. 3. Very mild gastroesophageal reflux disease. 4. History of hiatal hernia, status post repair. 5. Obstructive sleep apnea. 6. Hypertension. 7. Peripheral vascular disease, history of AAA repair. 8. Coronary artery disease, status post stents. 9. Chronic hypoxemia on 5 L/minutes outpatient. 10. Chronic kidney disease. 11. History of renal cell carcinoma, status post nephrectomy. 12. Former smoker. 13. Continue steroids. Bronchodilators. Steroids taper Bronchodilators Patient requires escalation of medications N-acetylcysteine is reasonable as outpatient. Consider theophylline vs Daliresp Abx continue, acute + chronic could be reasonable Aggressive PT and OT pulmonary rehabilitation program after discharge. Continue oxygen therapy. Thank you very much, Dr. Golden for this consult. Please call for any questions.
[2019-03-02] MEDS: ROPINIROLE HCL 0.25 MG TAB PO SCH (21:19)
[2019-03-02] MEDS: SERTRALINE HCL 100 MG TAB PO SCH (21:19)
--- NOTE | 2019-03-02 21:21 | History and Physical ---
HISTORY OF PRESENT ILLNESS: A 78-year-old male with past medical history positive for hypertension, COPD, peripheral vascular disease, coronary artery disease, chronic renal insufficiency, he was a smoker, came to the office complaining of shortness of breath and wheezing. Apparently, his oxygen saturation dropped below 90%. He was very short of breath. Because of the acute exacerbation of COPD with respiratory failure, the patient was sent to [facility] for admission. REVIEW OF SYSTEMS: CARDIOVASCULAR: No chest pain or palpitation. RESPIRATORY: He does have less shortness of breath and cough. GASTROINTESTINAL: No nausea. No vomiting. No diarrhea. GENITOURINARY: No frequency. No dysuria. ALLERGIES: NOT ALLERGIC TO ANY MEDICATION. PAST MEDICAL HISTORY: COPD, peripheral vascular disease, coronary artery disease, chronic renal insufficiency, hypertension, status post nephrectomy. SOCIAL HISTORY: He quit smoking 10 years ago. He does not drink alcohol. PHYSICAL EXAMINATION: HEART: Showed regular rhythm. Normal S1, S2 sound. LUNGS: Clear bilaterally except for bilateral wheezing. ABDOMEN: Soft. EXTREMITIES: Show no evidence of cyanosis or hematoma. LABORATORY DATA: On the BMP; sodium 136, potassium 4.3, chloride 98, CO2 of 28, BUN 50, creatinine 2.74, glucose 164. CBC; white blood count 9800, hemoglobin 11.6, hematocrit 36.3, platelet count a 145,000. AST 25, ALT 19, total bilirubin 0.4, alkaline phosphatase 75. Chest x-ray showed no evidence of any infiltrates or any evidence of CHF. EKG came back with normal sinus rhythm. No evidence of any ST-segment elevation or depression. IMPRESSION: 1. Chronic obstructive pulmonary disease exacerbation. 2. Legs edema. 3. Acute hypoxic respiratory failure secondary to chronic obstructive pulmonary disease exacerbation. 4. [id number] renal failure, stage 4. 5. Coronary artery disease. 6. Peripheral vascular disease. PLAN OF TREATMENT: Continue albuterol q.4 hours, Atrovent q.8 hours, Zithromax 250 mg IV once a day, furosemide 40 mg IV twice a day. Continue monitoring BUN, creatinine, and electrolytes. Continue Plavix 75 mg daily, Protonix 40 mg daily. Continue Amitiza 24 mcg p.o. twice a day for narcotic induced constipation. Continue hydralazine 100 mg q.8 hours, Solu-Medrol 60 mg IV q.8 hours, ferrous sulfate 325 mg daily, nifedipine 60 mg twice a day, Ambien 10 mg at night p.r.n. for sleep, Tylenol 650 mg p.o. q.4 hours as needed for pain or fever, gabapentin 400 mg three times a day, sertraline 100 mg at bedtime, Lipitor 40 mg daily, allopurinol 200 mg daily, Flomax 0.4 mg daily, Requip 0.5 mg at bedtime, and clonidine 0.[address] Ortiz has been consulted from the Cardiology point of view. Dr. Byres has been consulted from the Pulmonary point of view. Echocardiogram was also done, report is pending. . MD ANDRIY Trinidad/ROXANNA /[id number]
[2019-03-03] VITALS (8 sets, daily range): BP systolic 114–136; BP diastolic 56–64
[2019-03-03] MEDS: HYDRALAZINE HCL 100 MG TABLET PO SCH ×3 (05:29→21:03)
[2019-03-03 06:05] LABS: BASOPHILS % 0.1 % (0.0-1.0); HEMATOCRIT 33.3 % (38.2-49.6); HEMOGLOBIN 10.7 g/dL (14.0-18.0); LYMPHOCYTES # (AUTO) 0.5 (1.0-3.2); LYMPHOCYTES % 3.4 % (18.0-39.1); MEAN CORPUSCULAR HEMOGLOBIN 27.2 pg (28-32); MEAN CORPUSCULAR HGB CONC 32.1 g/dL (31-35); MEAN CORPUSCULAR VOLUME 84.5 fL (81-99); MONOCYTES # (AUTO) 0.6 (0.2-0.8); MONOCYTES % 4.1 % (4.4-11.3); NEUTROPHILS # (AUTO) 12.8 (2.1-6.9); NEUTROPHILS % 91.5 % (38.7-80.0); PLATELET COUNT 154 x10e3/uL (140-360); RED BLOOD COUNT 3.94 x10e6/uL (4.3-5.7); RED CELL DISTRIBUTION WIDTH 16.2 % (11.7-14.4)
[2019-03-03 06:36] LABS: ALBUMIN 2.9 g/dL (3.5-5.0); ALBUMIN/GLOBULIN RATIO 0.9 (0.8-2.0); ANION GAP 18.1 mmol/L (8-16); CALCIUM 9.1 mg/dL (8.4-10.2); CREATININE, SERUM 2.88 mg/dL (0.72-1.25); POTASSIUM 4.1 mmol/L (3.5-5.1)
--- NOTE | 2019-03-03 07:04 | NUR ---
bedside report received from mine shifter RN, pt awake, alert, in stable condition, no distress noted, call light within reach, will continue to assess
[2019-03-03] MEDS: IPRATROPIUM BROMIDE 0.02% 2.5 ML NEB NEB SCH ×3 (07:23→23:15)
[2019-03-03] MEDS: ALBUTEROL SULF 0.083% NEB SOLN 3 ML NEB NEB PRN ×2 (07:23→15:11)
[2019-03-03] MEDS: LINACLOTIDE 145 MCG CAPSULE PO SCH (07:30)
[2019-03-03] MEDS ORDERED: LINACLOTIDE 145 MCG CAPSULE PO SCH (07:30)
[2019-03-03] MEDS: LUBIPROSTONE 24 MCG CAP PO SCH ×2 (08:00→16:33)
[2019-03-03] MEDS: PANTOPRAZOLE SOD 40 MG TABEC PO SCH (08:38)
[2019-03-03] MEDS: TAMSULOSIN HCL 0.4 MG CAP PO SCH (08:43)
[2019-03-03] MEDS: CLOPIDOGREL BISULFATE 75 MG TAB PO SCH (08:43)
[2019-03-03] MEDS: OMEGA PO SCH ×2 (08:43→16:24)
[2019-03-03] MEDS: GABAPENTIN 400 MG CAP PO SCH ×3 (08:43→20:59)
[2019-03-03] MEDS: FERROUS SULFATE 325 MG TAB PO SCH (08:43)
[2019-03-03] MEDS: ATORVASTATIN 40 MG TAB PO SCH (08:43)
[2019-03-03] MEDS: NIFEDIPINE CR 30 MG TAB PO SCH ×2 (08:44→16:33)
[2019-03-03] MEDS: ALLOPURINOL 100 MG TAB PO SCH (08:44)
[2019-03-03] MEDS: ACETYLCYSTEINE 200 MG/1 ML 10ML VIAL PO SCH ×2 (08:51→16:32)
[2019-03-03] MEDS: FUROSEMIDE INJ 10 MG/ML 4 ML VIAL IV SCH (08:51)
[2019-03-03] MEDS ORDERED: PREDNISONE 20 MG TAB PO SCH (09:00)
[2019-03-03] MEDS ORDERED: LINZESS 145 MCG PO SCH (09:00)
--- NOTE | 2019-03-03 17:12 | Progress Note ---
DATE: Internal Medicine Progress Note SUBJECTIVE: He is feeling better today. OBJECTIVE: VITAL SIGNS: Blood pressure 116/60, temperature 97.0, heart rate 61 per minute, respiratory rate 18 per minute, oxygen saturation 95%. HEART: Showed regular rhythm. Normal S1, S2 sounds. LUNGS: Clear bilaterally. ABDOMEN: Soft. EXTREMITIES: Show no evidence of cyanosis, edema, or hematoma. LABORATORY DATA: On the BMP; sodium 137, potassium 4.1, chloride 98, CO2 of 25, BUN 64, creatinine 2.88, glucose 159. On the CBC, white count 14,000, hemoglobin 10.7, hematocrit 33.3, platelet count 154,000. AST 26, ALT 18, total bilirubin 0.3, alkaline phosphatase 65. FINAL IMPRESSION: 1. Chronic obstructive pulmonary disease exacerbation. 2. Chronic diastolic congestive heart failure. 3. Hypertension with hypertensive nephropathy. 4. Acute renal failure, stage 3 to 4. 5. Peripheral vascular disease. 6. Hypercholesterolemia. 7. Gout. 8. Benign prostatic hypertrophy. 9. . PLAN OF TREATMENT: Continue albuterol q.4 hours as needed for shortness of breath, Atrovent q.8 hours as needed for shortness of breath, Zithromax 250 mg IV daily. We are going to stop the Lasix because of the worsening renal insufficiency. Essentially, the swelling of the legs has gone already. Continue ferrous sulfate 325 mg daily, nifedipine 60 mg twice a day, Linzess 145 mcg p.o. daily, Tylenol 650 mg q.4 hours as needed, gabapentin 400 mg three times a day, daily, Lipitor 40 mg daily, prednisone 40 mg daily, allopurinol 200 mg daily, Flomax 0.4 mg daily, Requip 0.5 mg at bedtime, clonidine 0.1 mg daily, Mucomyst 600 mg twice a day inhalation, Plavix 75 mg daily, Protonix 40 mg daily, Amitiza 24 mcg p.o. twice a day, hydralazine 100 mg q.8 hours, and Ambien 10 mg at bedtime. We are going to for insomnia. We are going to order BMP tomorrow. Continue current medications. Tentative discharge tomorrow. MD ANDRIY Trinidad/ROXANNA /[id number]
--- NOTE | 2019-03-03 19:57 | NUR ---
PULMONARY MEDICINE DATE OF ENCOUNTER: 03/03/2019 SUBJECTIVE: 2 L/min oxygen better mildly BM eating well REVIEW OF SYSTEMS: No headaches, no chest pain PHYSICAL EXAMINATION: VITAL SIGNS: Noted and reviewed per the chart record. GENERAL: NAD, alert and calm HEENT: Normocephalic, atraumatic. NECK: Supple. Throat midline. LUNGS: Bilateral air entry, mild wheezing, rare rhonchi. CARDIOVASCULAR: S1 and S2. No murmurs, rubs, or gallops. ABDOMEN: Soft and nontender. EXTREMITIES: No clubbing. No cyanosis. 1+ edema. INTEGUMENT: No rash. No purpura. LABORATORY DATA: cr 2.88, hco3 25, k 4.1. wbc 14, hct 33, plt 154 IMPRESSION AND PLAN: 1. Chronic obstructive pulmonary disease/chronic bronchitis with exacerbation. 2. Perennial allergies. 3. Very mild gastroesophageal reflux disease. 4. History of hiatal hernia, status post repair. 5. Obstructive sleep apnea. 6. Hypertension. 7. Peripheral vascular disease, history of AAA repair. 8. Coronary artery disease, status post stents. 9. Chronic hypoxemia on 5 L/minutes outpatient. 10. Chronic kidney disease. 11. History of renal cell carcinoma, status post nephrectomy. 12. Former smoker. 13. Continue steroids. Bronchodilators. Steroids taper Bronchodilators N-acetylcysteine is reasonable as outpatient. Consider theophylline vs Daliresp later Abx continue, acute + chronic could be reasonable Aggressive PT and OT pulmonary rehabilitation program after discharge. Continue oxygen therapy. Thank you very much, Dr. Golden for this consult. Please call for any questions.
[2019-03-03] MEDS: ROPINIROLE HCL 0.25 MG TAB PO SCH (20:59)
[2019-03-03] MEDS: SERTRALINE HCL 100 MG TAB PO SCH (20:59)
[2019-03-03] MEDS: AZITHROMYCIN 500MG/NS 250 ML 250 ML IV SCH (23:29)
[2019-03-04] VITALS (8 sets, daily range): BP systolic 121–164; BP diastolic 59–74
[2019-03-04] MEDS: HYDRALAZINE HCL 100 MG TABLET PO SCH ×3 (05:59→20:40)
[2019-03-04 06:33] LABS: ANION GAP 15.9 mmol/L (8-16); CALCIUM 8.5 mg/dL (8.4-10.2); CREATININE, SERUM 2.81 mg/dL (0.72-1.25); POTASSIUM 3.9 mmol/L (3.5-5.1)
[2019-03-04] MEDS: IPRATROPIUM BROMIDE 0.02% 2.5 ML NEB NEB SCH ×4 (06:40→23:35)
--- NOTE | 2019-03-04 07:05 | NUR ---
BEDSIDE ROUNDING COMPLETE WITH BIANKA CANNON AT THIS TIME. PT RESTING IN BED AND IN NO DISTRESS. CALL LIGHT IS IN REACH.
[2019-03-04] MEDS: LINACLOTIDE 145 MCG CAPSULE PO SCH (08:23)
[2019-03-04] MEDS: PANTOPRAZOLE SOD 40 MG TABEC PO SCH (08:24)
[2019-03-04] MEDS: LUBIPROSTONE 24 MCG CAP PO SCH ×2 (08:25→16:54)
[2019-03-04] MEDS: ACETYLCYSTEINE 200 MG/1 ML 10ML VIAL PO SCH ×2 (08:26→13:53)
[2019-03-04] MEDS: FERROUS SULFATE 325 MG TAB PO SCH (08:27)
[2019-03-04] MEDS: OMEGA PO SCH ×2 (08:27→16:26)
[2019-03-04] MEDS: TAMSULOSIN HCL 0.4 MG CAP PO SCH (08:27)
[2019-03-04] MEDS: ATORVASTATIN 40 MG TAB PO SCH (08:28)
[2019-03-04] MEDS: GABAPENTIN 400 MG CAP PO SCH ×3 (08:28→20:40)
[2019-03-04] MEDS: CLOPIDOGREL BISULFATE 75 MG TAB PO SCH (08:28)
[2019-03-04] MEDS: PREDNISONE 20 MG TAB PO SCH (08:29)
[2019-03-04] MEDS: NIFEDIPINE CR 30 MG TAB PO SCH ×2 (08:31→16:58)
[2019-03-04] MEDS: ALLOPURINOL 100 MG TAB PO SCH (08:31)
[2019-03-04] MEDS ORDERED: DEXTROSE 5%/0.45% SOD CHL 1,000 ML IV SCH (13:45)
--- NOTE | 2019-03-04 16:03 | NUR ---
PULMONARY MEDICINE DATE OF ENCOUNTER: 03/04/2019 SUBJECTIVE: 3 L/min oxygen more wheezing today s/p BM eats well REVIEW OF SYSTEMS: No headaches, no chest pain PHYSICAL EXAMINATION: VITAL SIGNS: Noted and reviewed per the chart record. GENERAL: NAD, alert and calm HEENT: Normocephalic, atraumatic. NECK: Supple. Throat midline. LUNGS: Bilateral air entry, mild wheezing, rare rhonchi. CARDIOVASCULAR: S1 and S2. No murmurs, rubs, or gallops. ABDOMEN: Soft and nontender. EXTREMITIES: No clubbing. No cyanosis. 1+ edema. INTEGUMENT: No rash. No purpura. LABORATORY DATA: cr 2.81, hct 26, cr 2.81, wbc 14, hct 33, plt 154 IMPRESSION AND PLAN: 1. Chronic obstructive pulmonary disease/chronic bronchitis with exacerbation. 2. Perennial allergies. 3. Very mild gastroesophageal reflux disease. 4. History of hiatal hernia, status post repair. 5. Obstructive sleep apnea. 6. Hypertension. 7. Peripheral vascular disease, history of AAA repair. 8. Coronary artery disease, status post stents. 9. Chronic hypoxemia on 5 L/minutes outpatient. 10. Chronic kidney disease. 11. History of renal cell carcinoma, status post nephrectomy. 12. Former smoker. 13. Continue steroids. Bronchodilators. Steroids slow taper, still lots of symptoms Bronchodilators N-acetylcysteine is reasonable as outpatient. Consider theophylline vs Daliresp later Abx continue, acute + chronic could be reasonable Aggressive PT and OT pulmonary rehabilitation program after discharge. Continue oxygen therapy. Thank you very much, Dr. Golden for this consult. Please call for any questions.
--- NOTE | 2019-03-04 17:22 | Progress Note ---
DATE: Internal Medicine Progress Note. SUBJECTIVE: The patient is complaining of cough and phlegm today. OBJECTIVE: VITAL SIGNS: Blood pressure 121/59, temperature 36.8, heart rate 91 per minute, respiratory rate 22 per minute, oxygen saturation 99%. HEART: Showed regular rhythm. Normal S1, S2 sounds. LUNGS: Bilateral wheezing. ABDOMEN: Soft. LABORATORY DATA: BMP; sodium 138, potassium 3.9, chloride 100, CO2 of 26, BUN 73, creatinine 2.81, glucose 122. On CBC, white blood count 14,000, hemoglobin 10.7, hematocrit 33.3, platelet count 154,000. AST 26, ALT 18, total bilirubin 0.3, alkaline phosphatase 65. ASSESSMENT: 1. Chronic obstructive pulmonary disease exacerbation. 2. Acute respiratory failure secondary to chronic obstructive pulmonary disease exacerbation. 3. Acute on chronic renal failure, stage 4. 4. Hypertension with hypertensive nephropathy. 5. Coronary artery disease. 6. Peripheral vascular disease. PLAN OF TREATMENT: We are going to of course discontinue the furosemide. Start the patient on D5 normal saline at 75 mL an hour. We are going to repeat a BMP tomorrow to monitor the kidney function, since it is a worsening renal insufficiency. Continue albuterol q.4 hours as needed for shortness of breath, Atrovent q.8 hours as needed for shortness of breath, Tylenol 650 mg p.o. q.4 hours as needed for pain or fever, gabapentin 400 mg three times a day, sertraline 100 mg daily, simvastatin 40 mg daily, Mucomyst 600 mg twice a day, allopurinol 200 mg daily, Flomax 0.4 mg daily, Requip 0.5 mg at bedtime, clonidine 0.1 mg daily, prednisone 30 mg daily, Plavix 75 mg daily, Protonix 40 mg daily, Amitiza 24 mcg twice a day, hydralazine 100 mg q.8 hours, Ambien 10 mg at night p.r.n. for sleep, ferrous sulfate 325 mg daily, nifedipine 60 mg twice a day, Linzess 145 mcg daily, so we are going to repeat a BMP tomorrow. Continue the IV fluids. We are going to as I said, discontinue the furosemide due to renal insufficiency. MD ANDRIY Trinidad/ROXANNA /[id number]
--- NOTE | 2019-03-04 19:00 | NUR ---
received report from day nurse. patient is resting comfortably in bed. bed is in lowest position and call callow[place] is within reach. will continue to monitor patient.
--- NOTE | 2019-03-04 19:07 | NUR ---
report given to night shift manager RN, pt awake, alert, in no apparent distress, call light within reach
[2019-03-04] MEDS: SERTRALINE HCL 100 MG TAB PO SCH (20:40)
[2019-03-04] MEDS: ROPINIROLE HCL 0.25 MG TAB PO SCH (20:40)
[2019-03-05] VITALS (8 sets, daily range): BP systolic 85–146; BP diastolic 52–65
[2019-03-05] MEDS: AZITHROMYCIN 500MG/NS 250 ML 250 ML IV SCH ×2 (00:31→23:45)
--- NOTE | 2019-03-05 02:30 | Consultation ---
DATE OF CONSULTATION: REASON FOR CONSULT: Acute kidney failure on chronic kidney disease stage 3. HISTORY OF PRESENT ILLNESS: This is a 78-year-old male, who was admitted with shortness of breath and difficulty breathing and swelling. The patient was admitted, improved with treatment, but currently increased creatinine. PAST MEDICAL HISTORY: Include: 1. History of renal cell carcinoma, status post nephrectomy. 2. Perennial allergies. 3. AAA repair. 4. Hiatal hernia repair. 5. Coronary artery disease. 6. Stenting. 7. Sleep apnea. 8. COPD. 9. GERD. 10. Hypoxemia. 11. Hypertension. 12. Dyslipidemia. 13. Peripheral vascular disease. 14. Chronic kidney disease stage 4 with a GFR of 25 to around 35, which was in August. Currently, his GFR is 22. CURRENT MEDICATIONS: Include albuterol, Neurontin, sertraline, atorvastatin, acetylcysteine, Atrovent, allopurinol, tamsulosin, ropinirole, clonidine, prednisone, Plavix, Protonix, hydralazine, zolpidem, iron sulfate, nifedipine. SOCIAL HISTORY: No alcohol. No drugs. Smoked from age 9 to 67. ALLERGIES: NO KNOWN DRUG ALLERGIES. FAMILY HISTORY: Negative. REVIEW OF SYSTEMS: No weight changes. Improved shortness of breath. No double vision. No ulcers. No blood in the stool. No blood in the urine. No skin changes. Basically otherwise negative. PHYSICAL EXAMINATION: GENERAL: Alert, following commands. HEENT: Pupils are equal and reactive to light and accommodation. NECK: No JVD. No bruit. LUNGS: No rhonchi. No rales. HEART: Regular rate and rhythm. No S3. No S4. ABDOMEN: Soft, nondistended. No hepatomegaly or splenomegaly. EXTREMITIES: No clubbing, cyanosis, or edema. VITAL SIGNS: Blood pressure 147/65. LABORATORY DATA: Sodium 138; potassium 3.9; chloride 100; creatinine 2.81, down from 2.88, baseline creatinine 2.0; albumin 2.9; triglycerides 178, amylase 100; lipase 36. T4 of 4.618. ASSESSMENT AND PLAN: 1. Mwitz-jr-psjqafe kidney disease, baseline is 2. Currently plan is to back off diuretics as the patient probably has now component of prerenal and we will re-evaluate his labs. 2. Volume overload, currently much better. Lasix has been stopped. 3. Insomnia. Basically was started on zolpidem. 4. Benign prostatic hypertrophy. The patient is on tamsulosin. 5. History of nephrectomy. So, in short, acute kidney injury on chronic kidney disease 3. Emil Mendez MD MA/ROXANNA /[id number]
[2019-03-05] MEDS: IPRATROPIUM BROMIDE 0.02% 2.5 ML NEB NEB SCH ×6 (03:00→23:15)
[2019-03-05] MEDS: HYDRALAZINE HCL 100 MG TABLET PO SCH (05:00)
--- NOTE | 2019-03-05 06:52 | NUR ---
received bedside report from cnc machinist 2nd shift RN, pt resting comfortably in bed, semi fowlers position, respirations even and nonlabored, no distress noted, will continue to assess.
--- NOTE | 2019-03-05 06:53 | NUR ---
report given to day nurse. patient is resting comfortably in the bed. bed is in the lowest position and call light is within reach. will continue to monitor patient.
[2019-03-05] MEDS: ALBUTEROL SULF 0.083% NEB SOLN 3 ML NEB NEB PRN ×5 (06:55→23:15)
[2019-03-05] MEDS: LINACLOTIDE 145 MCG CAPSULE PO SCH (07:30)
[2019-03-05] MEDS: LUBIPROSTONE 24 MCG CAP PO SCH ×3 (08:00→16:23)
[2019-03-05 08:34] LABS: BASOPHILS % 0.2 % (0.0-1.0); EOSINOPHILS % 0.1 % (0.0-6.0); HEMATOCRIT 35.1 % (38.2-49.6); HEMOGLOBIN 10.9 g/dL (14.0-18.0); LYMPHOCYTES # (AUTO) 1.1 (1.0-3.2); MEAN CORPUSCULAR HEMOGLOBIN 26.9 pg (28-32); MEAN CORPUSCULAR HGB CONC 31.1 g/dL (31-35); MEAN CORPUSCULAR VOLUME 86.7 fL (81-99); MONOCYTES # (AUTO) 0.8 (0.2-0.8); MONOCYTES % 7.3 % (4.4-11.3); NEUTROPHILS # (AUTO) 8.6 (2.1-6.9); NEUTROPHILS % 81.1 % (38.7-80.0); PLATELET COUNT 147 x10e3/uL (140-360); RED BLOOD COUNT 4.05 x10e6/uL (4.3-5.7); RED CELL DISTRIBUTION WIDTH 16.8 % (11.7-14.4)
[2019-03-05] MEDS: OMEGA PO SCH ×2 (08:41→16:08)
[2019-03-05] MEDS: PANTOPRAZOLE SOD 40 MG TABEC PO SCH (08:42)
[2019-03-05] MEDS: FERROUS SULFATE 325 MG TAB PO SCH (08:45)
[2019-03-05] MEDS: ACETYLCYSTEINE 200 MG/1 ML 10ML VIAL PO SCH ×2 (08:45→16:13)
[2019-03-05] MEDS: TAMSULOSIN HCL 0.4 MG CAP PO SCH (08:46)
[2019-03-05] MEDS: GABAPENTIN 400 MG CAP PO SCH ×3 (08:46→21:56)
[2019-03-05] MEDS: ATORVASTATIN 40 MG TAB PO SCH (08:46)
[2019-03-05] MEDS: CLOPIDOGREL BISULFATE 75 MG TAB PO SCH (08:46)
[2019-03-05] MEDS: PREDNISONE 20 MG TAB PO SCH (08:50)
[2019-03-05] MEDS: NIFEDIPINE CR 30 MG TAB PO SCH (08:51)
[2019-03-05] MEDS: ALLOPURINOL 100 MG TAB PO SCH (08:52)
[2019-03-05 09:09] LABS: ALBUMIN 2.8 g/dL (3.5-5.0); ALBUMIN/GLOBULIN RATIO 0.9 (0.8-2.0); ANION GAP 13.4 mmol/L (8-16); CALCIUM 8.3 mg/dL (8.4-10.2); CREATININE, SERUM 2.91 mg/dL (0.72-1.25); POTASSIUM 3.4 mmol/L (3.5-5.1)
--- NOTE | 2019-03-05 10:33 | NUR ---
spoke with Dr. Ortiz concerning chest pain pt started complaining of around 0945; EKG done at [address] Ortiz informed of results. He states pt had a full cardiac workup last year that was normal and recommends we page Dr Byers.
[2019-03-05] MEDS ORDERED: METHYLPREDNISOLONE SOD SUCC 125 MG/2ML VIAL IV SCH (11:00)
[2019-03-05] MEDS ORDERED: FUROSEMIDE INJ 10 MG/ML 4 ML VIAL IV ONE (11:15)
--- NOTE | 2019-03-05 12:02 | Diagnostic Imaging Report ---
A single frontal view of the chest. HISTORY: COPD, rule out pneumonia COMPARISON: Chest radiograph March 01, 2019. DISCUSSION: Portable technique, limits sensitivity of the exam. Soft tissue attenuation partially limits sensitivity of the exam. Overlying artifacts. Tubes/Lines: None Lungs and pleura: Low lung volumes result in bibasilar vascular crowding, accentuation of the pulmonary interstitial markings, central pulmonary vasculature, and the cardiac silhouette. Allowing for these limitations, the findings are as follows: Stable mild eventration versus elevation of the left hemidiaphragm. Mild left greater than right basilar atelectasis. No evidence of a consolidative pneumonia or pulmonary alveolar edema. No definite pleural effusion or pneumothorax is identified. Heart and mediastinum: The cardiomediastinal silhouette appear(s) unchanged. Bones and soft tissues: Appear unremarkable, given this limited exam. IMPRESSION: 1. Slightly decreased right and increased left bibasilar atelectasis. Superimposed left basilar aspiration or pneumonia may be a consideration the appropriate setting. 2. Stable mild cardiomegaly. Signed by: Dr. Jayden Ramey D.O., M.M.M. on 03/05/2019 11:58 AM
[2019-03-05] MEDS ORDERED: POTASSIUM CHLORIDE 20 MEQ TAB CR PO ONE (14:00)
[2019-03-05] MEDS ORDERED: DEXTROSE 5%/0.45% SOD CHL 1,000 ML IV ONE (14:00)
--- NOTE | 2019-03-05 16:05 | NUR ---
Visit made by the Spiritual Care Department Pastoral Visitor, Jacob Ordonez. PV provided pastoral presence, prayer, communion, hospitality, and supportive listening. Pastoral Visitor informed pt/family of the scope of [employer] and availability. YADIEL KOTHARI [employer] Trader Spiritual Care Department O: [phone] Pager: [phone] ([phone] number calling from)
--- NOTE | 2019-03-05 16:17 | Progress Note ---
DATE: Internal Medicine Progress Note SUBJECTIVE: The patient is complaining of shortness of breath, constipation, rectal pain and also heavy thick secretions. PHYSICAL EXAMINATION: VITAL SIGNS: Blood pressure , temperature 97.4, heart rate 100 per minute, respiratory rate is 22 per minute, oxygen saturation 90%. HEART: Showed regular rhythm. Normal S1, S2 sound. LUNGS: Show decreased breath sounds bilaterally. ABDOMEN: Soft. EXTREMITIES: Show no evidence of cyanosis or hematoma. LABORATORY DATA: On the BMP; sodium 139, potassium 3.4, chloride 102 CO2 27, BUN 77, creatinine 2.91, glucose 107. On the CBC; white count 3.6, hemoglobin 10.9, hematocrit 35.1, platelet count 147,000. AST 18, ALT 16, total bilirubin 0.4, alkaline phosphatase 61. ASSESSMENT: 1. Chronic obstructive pulmonary disease exacerbation. 2. Acute on chronic renal failure stage 4. 3. Acute hypoxemic respiratory failure. 4. Hypokalemia. 5. Anemia of chronic disease. 6. Peripheral vascular disease. 7. Restless legs syndrome. 8. Benign prostatic hypertrophy. 9. Constipation. 10. Hypertension with renal insufficiency. PLAN OF TREATMENT: Continue albuterol q.4 hours, Atrovent q.4 hours, Zithromax 250 mg IV once a day, Tylenol 650 mg q.4 hours as needed, gabapentin 400 mg three times a day, sertraline 100 mg daily, Lipitor 40 mg daily, Mucomyst 600 mg twice a day, allopurinol 200 mg daily, Flomax 0.4 mg daily, Requip 0.5 mg at bedtime, clonidine 0.1 mg daily, which we are going to discontinue because of hypotension. Continue prednisone 30 mg daily, Plavix 75 mg daily, Protonix 40 mg daily, Amitiza 24 mcg p.o. twice a day, hydralazine is going to be placed on hold also. Continue Ambien 10 mg at bedtime, ferrous sulfate 325 mg daily, nifedipine 60 mg twice a day has been decreased to 30 mg twice a day because of hypotension. He is on Linzess 145 mcg daily. We are going to give some IV fluids, also normal saline at 100 mL an hour for 1 L. MD ANDRIY Trinidad/ROXANNA /[id number]
[2019-03-05] MEDS ORDERED: GUAIFENESIN 200 MG/10 ML UDC PO PRN (17:15)
--- NOTE | 2019-03-05 19:02 | NUR ---
bedside walking rounds completed with manufacturing supervisor 2nd shift RN. pt in stable condition.
[2019-03-05] MEDS: ROPINIROLE HCL 0.25 MG TAB PO SCH (21:56)
[2019-03-05] MEDS: SERTRALINE HCL 100 MG TAB PO SCH (21:56)
--- NOTE | 2019-03-05 22:42 | NUR ---
PULMONARY MEDICINE DATE OF ENCOUNTER: 03/05/2019 SUBJECTIVE: more wheezing some sob better after lasix iv and expectorating phlegm ate ok REVIEW OF SYSTEMS: No headaches, no chest pain PHYSICAL EXAMINATION: VITAL SIGNS: Noted and reviewed per the chart record. GENERAL: NAD, alert and calm HEENT: Normocephalic, atraumatic. NECK: Supple. Throat midline. LUNGS: Bilateral air entry, mild wheezing, rare rhonchi. CARDIOVASCULAR: S1 and S2. No murmurs, rubs, or gallops. ABDOMEN: Soft and nontender. EXTREMITIES: No clubbing. No cyanosis. 1+ edema. INTEGUMENT: No rash. No purpura. LABORATORY DATA: cr 2.91, k 3.4. wbc 11, hct 35. IMPRESSION AND PLAN: 1. Chronic obstructive pulmonary disease/chronic bronchitis with exacerbation. 1. possible additional mild overload 2. Perennial allergies. 3. Very mild gastroesophageal reflux disease. 4. History of hiatal hernia, status post repair. 5. Obstructive sleep apnea. 6. Hypertension. 7. Peripheral vascular disease, history of AAA repair. 8. Coronary artery disease, status post stents. 9. Chronic hypoxemia on 5 L/minutes outpatient. 10. Chronic kidney disease. 11. History of renal cell carcinoma, status post nephrectomy. 12. Former smoker. Steroids slow taper, still lots of symptoms Bronchodilators N-acetylcysteine is reasonable as outpatient. Consider theophylline vs Daliresp later Abx continue, acute + chronic could be reasonable Aggressive PT and OT pulmonary rehabilitation program after discharge. Continue oxygen therapy. some additional lasix today some additional steroid boost expectoration cough medication boost Thank you very much, Dr. Golden for this consult. Please call for any questions.
[2019-03-06] VITALS (8 sets, daily range): BP systolic 108–193; BP diastolic 47–83
[2019-03-06] MEDS: ALBUTEROL SULF 0.083% NEB SOLN 3 ML NEB NEB PRN ×4 (03:08→15:15)
[2019-03-06] MEDS: IPRATROPIUM BROMIDE 0.02% 2.5 ML NEB NEB SCH ×6 (03:08→23:37)
[2019-03-06 06:17] LABS: ANION GAP 16.7 mmol/L (8-16); CALCIUM 8.2 mg/dL (8.4-10.2); CREATININE, SERUM 2.97 mg/dL (0.72-1.25); POTASSIUM 3.7 mmol/L (3.5-5.1)
--- NOTE | 2019-03-06 06:52 | NUR ---
RECEIVED PATIENT RESTING IN BED. NO ACUTE DISTRESS NOTED. CALL LIGHT WITHIN REACH. BED IN THE LOWEST POSITION. PATIENT'S IV NOTED TO BE OUT, PATIENT WOULD LIKE TO WAIT AND SEE IF HE WILL BE DISCHARGED BEFORE ATTEMPTING TO GET A NEW IV.
--- NOTE | 2019-03-06 07:07 | NUR ---
report given to day nurse and walking rounds complete. patient is resting comfortably in bed. bed is in lowest position and call calloway is within reach.
[2019-03-06] MEDS: OMEGA PO SCH ×2 (08:17→17:00)
[2019-03-06] MEDS: NIFEDIPINE CR 30 MG TAB PO SCH ×2 (09:00→17:49)
[2019-03-06] MEDS: PREDNISONE 20 MG TAB PO SCH (09:58)
[2019-03-06] MEDS: CLOPIDOGREL BISULFATE 75 MG TAB PO SCH (09:58)
[2019-03-06] MEDS: FERROUS SULFATE 325 MG TAB PO SCH (09:58)
[2019-03-06] MEDS: PANTOPRAZOLE SOD 40 MG TABEC PO SCH (09:58)
[2019-03-06] MEDS: GABAPENTIN 400 MG CAP PO SCH ×3 (09:58→20:52)
[2019-03-06] MEDS: LINACLOTIDE 145 MCG CAPSULE PO SCH (09:58)
[2019-03-06] MEDS: ATORVASTATIN 40 MG TAB PO SCH (09:58)
[2019-03-06] MEDS: TAMSULOSIN HCL 0.4 MG CAP PO SCH (09:58)
[2019-03-06] MEDS: ALLOPURINOL 100 MG TAB PO SCH (09:58)
[2019-03-06] MEDS: ACETYLCYSTEINE 200 MG/1 ML 10ML VIAL INH SCH ×2 (11:20→19:48)
[2019-03-06] MEDS: PIPERACILLIN/TAZO 2.25 GM 50 ML IV SCH ×3 (11:45→22:00)
--- NOTE | 2019-03-06 12:01 | Progress Note ---
DATE: Internal Medicine Progress Note SUBJECTIVE: The patient is complaining that he has cough and phlegm anytime he eats. The patient is going to have a Speech Therapy evaluation. OBJECTIVE: HEART: Regular rhythm. Normal S1, S2 sounds. LUNGS: He has some rales and wheezing. ABDOMEN: Soft. EXTREMITIES: No evidence of cyanosis, edema, or hematoma. VITAL SIGNS: Temperature 96.2, heart rate 96 per minute, respiratory rate 18 per minute, blood pressure 164/71, oxygen saturation 93%. LABORATORY DATA: On the blood work, we have BMP; sodium 136, potassium 3.7, chloride 100, CO2 of 23, BUN 77, creatinine 2.97, glucose 126, magnesium 2.2, AST 18, ALT 16, alkaline phosphatase 61. On the CBC, white blood count 10.61, hemoglobin 10.9, hematocrit 35.1, platelet count 147,000. IMPRESSION: 1. Chronic obstructive pulmonary disease exacerbation. 2. Possible aspiration pneumonia. 3. Acute on chronic renal failure stage 4. 4. Hypertension with chronic renal failure. 5. Peripheral vascular disease. PLAN OF TREATMENT: We are going to continue monitoring BUN and creatinine. We are going to get a Speech Therapy evaluation. We are going to continue Zithromax 250 mg IV once a day. He is getting D5 half-normal saline at 100 cc an hour, Tylenol 650 mg q.4 hours as needed, Mucomyst 600 mg twice a day, albuterol q.4 hours as needed for shortness of breath, Zyloprim which is allopurinol 200 mg daily, Lipitor 40 mg daily, clonidine 0.1 mg daily as needed for hypertension, Plavix 75 mg daily, ferrous sulfate 325 mg daily, gabapentin 400 mg three times a day, guaifenesin 400 mg q.6 hours as needed for cough, hydralazine 100 mg q.8 hours, Atrovent q.4 hours, Linzess 145 mcg p.o. daily. We are going to discontinue Amitiza. Nifedipine has been discontinued because of low blood pressure yesterday. He was on nifedipine 30 mg twice a day which is Procardia XL 30 mg twice a day. Protonix 40 mg daily. Potassium has been given one time because of low potassium yesterday. Continue prednisone 30 mg daily, Requip 0.5 mg at bedtime, sertraline 100 mg at bedtime, Flomax 0.4 mg daily, Ambien 10 mg as needed at night p.r.n. for insomnia. We are going to add Zosyn due to the fact the patient has possible evidence of aspiration pneumonia and go from there. MD ANDRIY Trinidad/ROXANNA /[id number]
[2019-03-06] MEDS: HYDRALAZINE HCL 100 MG TABLET PO SCH ×2 (13:05→22:00)
--- NOTE | 2019-03-06 15:42 | Diagnostic Imaging Report ---
PROCEDURE: X-RAY MODIFIED BARIUM SWALLOW COMPARISON: None. INDICATION: COPD exacerbation, aspiration Radiation Details: Fluoroscopy time: 1.0 minutes Cumulative dose: 9.8 mGy DISCUSSION: Fluoroscopic examination was performed in conjunction with speech pathology during swallowing a variety of thin and thick liquid consistencies. Provided images demonstrate trace laryngeal penetration and no aspiration. CONCLUSION: Modified barium swallow demonstrating trace laryngeal penetration and no aspiration. Please refer to the speech pathology report for further details. Signed by: Justice Leon MD on 03/06/2019 3:39 PM
--- NOTE | 2019-03-06 16:54 | NUR ---
Nutrition LOS Note RD Recommendation for Physician: - Continue diet as ordered - Diet texture per APARTMENT GROUNDSKEEPER Plan of Care: RD following, monitoring for tolerance and adequacy Nutrition reason for involvement: LOS Primary Diagnose(s): COPD exacerbation PMH: 1. CAD, status post left heart catheterization in 2016 with a 60% mid LAD disease and about a 40% left circ disease. 2. Peripheral vascular disease. 3. Hypertension. 4. Hyperlipidemia. 5. AAA, status post EVAR. 6. Chronic kidney disease, stage 4, status post right nephrectomy. 7. COPD, on home oxygen. Ht: 65in Wt: 214lb BMI: 35.6kg/m2 IBW: 136lb +/- 10% RD Assessment: (03/06) Chart reviewed. Labs and meds reviewed. 78yo French speaking male, who was admitted for COPD. Granddaughter present on bedside for translation. MBS ordered, pt complained of cough with PO intake. Chest XR showed decreased right and increased left bibasilar consolidation with stable cardiomegaly. MBS showed trace laryngeal penetration and no aspiration. APARTMENT GROUNDSKEEPER rec regular texture with thin liquids. Pt with good appetite and no GI complains during time of visit. Placement pending. Current Diet: low sodium diet Malnutrition Evaluation (03/06/2019) The patient does not meet criteria for a specified degree of malnutrition at this time. Will re-evaluate at follow-up as appropriate. Energy intake: Adequate PO intake reported Weight loss: No weight loss reported Fat loss:no loss identified Muscle loss: no loss identified Supporting Evidence: Fluid accumulation: no accumulation identified Functional Status: no changes Diet Education Needs Assessment: Diet education not indicated. Nutrition Care Level: low Signed: Henrietta Wade, MS, RD, LD
--- NOTE | 2019-03-06 17:14 | NUR ---
ORDER RECEIVED FOR LTAC EVAL AND TRANSFER. MET W THE PT AT THE BEDSIDE; URUGUAYAN SPEAKING. GAS LEAK TESTER INTERPRETED. PT STATES HE WOULD LIKE FOR HIS DTR TO BE PRESENT BEFORE SIGNING CHOICE. STATES [facility] WOULD ARRIVE AFTER 6PM. INFORMED PT CM WILL NOT BE AVAILABLE. CALL PLACED TO [facility] HARDEN @ [phone]. NO ANSWER. THEN CALLED MAURI @ [phone]. NO ANSWER. CM LEFT VM W CONTACT INFO. WILL F/U.
--- NOTE | 2019-03-06 19:45 | NUR ---
REPORT GIVEN TO ONCOMING NURSE. WALKING ROUNDS DONE. PATIENT IS RESTING IN BED. NO ACUTE DISTRESS NOTED. FAMILY MEMBERS AT BEDSIDE. CALL LIGHT WITHIN REACH. BED IN THE LOWEST POSITION.
--- NOTE | 2019-03-06 19:56 | NUR ---
RECEIVED PT IN BED AOX3 .RESPIRATIONS ARE EVEN AND UNLABORED .NOTED WHEEZING ON AUSCULTATION OF THE LUNGS .CALL LIGHT WITH IN REACH .FAMILY AT THE BEDSIDE .CONTINUE TO MONITOR
[2019-03-06] MEDS: SERTRALINE HCL 100 MG TAB PO SCH (20:53)
[2019-03-06] MEDS: ROPINIROLE HCL 0.25 MG TAB PO SCH (20:53)
[2019-03-06] MEDS ORDERED: ZOLPIDEM TARTRATE 5 MG TAB PO PRN (21:00)
[2019-03-06] MEDS: MELATONIN 3 MG TAB PO PRN (21:00)
[2019-03-06] MEDS: AZITHROMYCIN 500MG/NS 250 ML 250 ML IV SCH (23:45)
[2019-03-07] VITALS (8 sets, daily range): BP systolic 122–164; BP diastolic 58–76
--- NOTE | 2019-03-07 00:38 | NUR ---
PULMONARY MEDICINE DATE OF ENCOUNTER: 03/06/2019 SUBJECTIVE: ivf 100/hr 2 L/min oxygen better breathing BM 2 days ago Eating well REVIEW OF SYSTEMS: No headaches, no chest pain PHYSICAL EXAMINATION: VITAL SIGNS: Noted and reviewed per the chart record. GENERAL: NAD, alert and calm HEENT: Normocephalic, atraumatic. NECK: Supple. Throat midline. LUNGS: Bilateral air entry, mild wheezing, rare rhonchi. CARDIOVASCULAR: S1 and S2. No murmurs, rubs, or gallops. ABDOMEN: Soft and nontender. EXTREMITIES: No clubbing. No cyanosis. 1+ edema. INTEGUMENT: No rash. No purpura. LABORATORY DATA: cr 2.97, k 3.7 IMPRESSION AND PLAN: 1. Chronic obstructive pulmonary disease/chronic bronchitis with exacerbation. 1. possible additional mild overload 2. Perennial allergies. 3. Very mild gastroesophageal reflux disease. 4. History of hiatal hernia, status post repair. 5. Obstructive sleep apnea. 6. Hypertension. 7. Peripheral vascular disease, history of AAA repair. 8. Coronary artery disease, status post stents. 9. Chronic hypoxemia on 5 L/minutes outpatient. 10. Chronic kidney disease. 11. History of renal cell carcinoma, status post nephrectomy. 12. Former smoker. Steroids slow taper, still lots of symptoms Bronchodilators N-acetylcysteine is reasonable as outpatient. Consider theophylline vs Daliresp later Abx continue, acute + chronic could be reasonable Aggressive PT and OT pulmonary rehabilitation program after discharge. Continue oxygen therapy. expectoration cough medication Thank you very much, Dr. Golden for this consult. Please call for any questions.
[2019-03-07] MEDS: IPRATROPIUM BROMIDE 0.02% 2.5 ML NEB NEB SCH ×6 (02:58→23:17)
[2019-03-07] MEDS: PIPERACILLIN/TAZO 2.25 GM 50 ML IV SCH ×4 (04:00→21:18)
--- NOTE | 2019-03-07 05:23 | NUR ---
PT C/O COUGH AND GIVEN COUGH MEDICINE .DENIES PAIN .FAMILY AT THE BEDSIDE CALL LIGHT WITH IN REACH .CONTINUE TO MONITOR
[2019-03-07] MEDS: HYDRALAZINE HCL 100 MG TABLET PO SCH ×3 (05:42→22:00)
--- NOTE | 2019-03-07 07:12 | NUR ---
Received patient lying in bed with eyes open. Family members at bedside. Respiration even and unlabored without SOB. Call light in reach. Anuj pain at this time.
--- NOTE | 2019-03-07 07:17 | NUR ---
BED SIDE REPORT GIVEN TO THE ONCOMING NURSE
[2019-03-07 07:38] LABS: ANION GAP 12.4 mmol/L (8-16); CALCIUM 8.4 mg/dL (8.4-10.2); CREATININE, SERUM 2.62 mg/dL (0.72-1.25); POTASSIUM 4.4 mmol/L (3.5-5.1)
[2019-03-07] MEDS: ACETYLCYSTEINE 200 MG/1 ML 10ML VIAL INH SCH ×2 (07:56→19:50)
[2019-03-07] MEDS: ALBUTEROL SULF 0.083% NEB SOLN 3 ML NEB NEB PRN (07:57)
[2019-03-07] MEDS: CLOPIDOGREL BISULFATE 75 MG TAB PO SCH (08:53)
[2019-03-07] MEDS: FERROUS SULFATE 325 MG TAB PO SCH (08:53)
[2019-03-07] MEDS: GABAPENTIN 400 MG CAP PO SCH ×3 (08:53→20:28)
[2019-03-07] MEDS: ALLOPURINOL 100 MG TAB PO SCH (08:53)
[2019-03-07] MEDS: TAMSULOSIN HCL 0.4 MG CAP PO SCH (08:53)
[2019-03-07] MEDS: PANTOPRAZOLE SOD 40 MG TABEC PO SCH (08:53)
[2019-03-07] MEDS: LINACLOTIDE 145 MCG CAPSULE PO SCH (08:53)
[2019-03-07] MEDS: NIFEDIPINE CR 30 MG TAB PO SCH ×2 (08:54→16:39)
[2019-03-07] MEDS: OMEGA PO SCH ×2 (08:55→16:39)
[2019-03-07] MEDS: PREDNISONE 20 MG TAB PO SCH (09:00)
--- NOTE | 2019-03-07 10:15 | NUR ---
MET W THE PT AND DTR AT THE BEDSIDE TO DISCUSS LTAC. DTR STATES THEY WOULD LIKE TO GO TO [facility] [address]. STATES HER FATHER HAD BEEN THERE BEFORE. CHOICE LETTER WAS SIGNED AND COPY TO THE CHART AND COPY TO THE PT. MOT WAS INITIATED. CHAYITO/FARZANA WAS NOTIFIED.
--- NOTE | 2019-03-07 12:07 | Progress Note ---
DATE: Internal Medicine Progress Note SUBJECTIVE: The patient is feeling better. PHYSICAL EXAMINATION: VITAL SIGNS: Blood pressure 108/47, temperature 36 degrees, heart rate per minute, and O2 saturation 98%. HEART: Regular rhythm. Normal S1, S2 sound. LUNGS: Clear bilaterally. ABDOMEN: Soft. EXTREMITIES: No evidence of cyanosis or hematoma. LABORATORY DATA: BMP; sodium 136, potassium 3.7, chloride 100, CO2 of 23, BUN 77, creatinine 2.97, and glucose 126. On CBC; white blood cell count 10.6, hemoglobin 10.9, hematocrit 35.1, and platelet count 147,000. AST 18, ALT 16, total bilirubin 0.4, and alkaline phosphatase of 61. IMPRESSION: 1. Chronic obstructive pulmonary disease exacerbation. 2. Questionable pneumonia. 3. Acute on chronic renal failure, stage 4. 4. History of coronary artery disease. 5. Peripheral vascular disease. PLAN OF TREATMENT: Continue albuterol q.4 hours, Atrovent q.4 hours, Zithromax 250 mg IV daily, Zosyn 2.25 g IV q.6 hours, ferrous sulfate 325 mg daily, sertraline 100 mg daily, clonidine 0.1 mg daily, nifedipine 30 mg twice a day, gabapentin 400 mg three times a day, Requip 0.5 mg at bedtime, hydralazine 100 mg q.8 hours, guaifenesin q.6 hours as needed, allopurinol 200 mg daily, Flomax 0.4 mg daily, Linzess 145 mcg p.o. daily, Mucomyst 600 mg twice a day, Plavix 75 mg daily, Protonix 40 mg daily, Lipitor 40 mg daily, prednisone 30 mg daily, and Ambien 10 mg at bedtime. We are going to be waiting for insurance to approve him to transfer for [facility], which he is going to go because of severe COPD exacerbation and acute on chronic renal failure, optimization of cardiopulmonary condition. MD ANDRIY Trinidad/ROXANNA /[id number]
--- NOTE | 2019-03-07 19:00 | NUR ---
patient received awake, alert, lying quietly in bed. no c/o pain noted. respirations even and unlabored. 02/2l/nc in use. pm assessment complete. patient instructed to call for assistance when needed.
--- NOTE | 2019-03-07 19:05 | NUR ---
Report given to night baker. Patient is lying in bed with eyes open. Respiration even and unlabored without SOB. Call light in reach.
[2019-03-07] MEDS: SERTRALINE HCL 100 MG TAB PO SCH (20:28)
[2019-03-07] MEDS: ROPINIROLE HCL 0.25 MG TAB PO SCH (20:28)
[2019-03-07] MEDS: MELATONIN 3 MG TAB PO PRN (22:20)
[2019-03-07] MEDS: AZITHROMYCIN 500MG/NS 250 ML 250 ML IV SCH (23:45)
[2019-03-07] MEDS ORDERED: SODIUM CHLORIDE 0.9% 250ML 250 ML ONE (23:57)
[2019-03-08] VITALS (8 sets, daily range): BP systolic 133–188; BP diastolic 61–82
--- NOTE | 2019-03-08 01:00 | NUR ---
new iv #20 gauge placed to left hand x 1 stick at this time.
--- NOTE | 2019-03-08 01:18 | NUR ---
PULMONARY MEDICINE DATE OF ENCOUNTER: 03/07/2019 SUBJECTIVE: patient on oxygen by NC steady progress, not worse phlegm still no BM Eating well REVIEW OF SYSTEMS: No headaches, no chest pain PHYSICAL EXAMINATION: VITAL SIGNS: Noted and reviewed per the chart record. GENERAL: NAD, alert and calm HEENT: Normocephalic, atraumatic. NECK: Supple. Throat midline. LUNGS: Bilateral air entry, mild wheezing, rare rhonchi. CARDIOVASCULAR: S1 and S2. No murmurs, rubs, or gallops. ABDOMEN: Soft and nontender. EXTREMITIES: No clubbing. No cyanosis. 1+ edema. INTEGUMENT: No rash. No purpura. LABORATORY DATA: k 4.4, cr 2.62, bun 62 IMPRESSION AND PLAN: 1. Chronic obstructive pulmonary disease/chronic bronchitis with exacerbation. 1. possible additional mild overload 2. Perennial allergies. 3. Very mild gastroesophageal reflux disease. 4. History of hiatal hernia, s/p repair. 5. Obstructive sleep apnea. 6. Hypertension. 7. Peripheral vascular disease, hx AAA repair. 8. Coronary artery disease, status post stents. 9. Chronic hypoxemia on 5 L/minutes outpatient. 10. Chronic kidney disease. 11. History of renal cell carcinoma, s/p nephrectomy. 12. Former smoker. Steroids slow taper, still lots of symptoms Bronchodilators N-acetylcysteine is reasonable as outpatient. Consider theophylline vs Daliresp later Abx continue, acute + chronic could be reasonable Aggressive PT and OT pulmonary rehabilitation program after discharge. Continue oxygen therapy. expectoration cough medication Thank you very much, Dr. Golden for this consult. Please call for any questions.
[2019-03-08] MEDS: IPRATROPIUM BROMIDE 0.02% 2.5 ML NEB NEB SCH ×5 (03:10→20:33)
[2019-03-08] MEDS: PIPERACILLIN/TAZO 2.25 GM 50 ML IV SCH ×4 (04:00→22:00)
[2019-03-08] MEDS: HYDRALAZINE HCL 100 MG TABLET PO SCH ×3 (05:03→22:00)
--- NOTE | 2019-03-08 05:03 | NUR ---
am bp 186/79 hr 86 patient medicated with scheduled am hydralazine 100mg po at this time.
[2019-03-08 06:53] LABS: ANION GAP 12.4 mmol/L (8-16); CALCIUM 8.7 mg/dL (8.4-10.2); CREATININE, SERUM 2.36 mg/dL (0.72-1.25); POTASSIUM 4.4 mmol/L (3.5-5.1)
--- NOTE | 2019-03-08 07:01 | NUR ---
bedside shift report received from load tester RN, pt resting comfortably, no distress noted, call light within reach, will continue to assess.
[2019-03-08] MEDS: ALBUTEROL SULF 0.083% NEB SOLN 3 ML NEB NEB PRN (07:35)
[2019-03-08] MEDS: ACETYLCYSTEINE 200 MG/1 ML 10ML VIAL INH SCH ×2 (07:35→20:33)
[2019-03-08] MEDS: OMEGA PO SCH ×2 (09:00→16:10)
[2019-03-08] MEDS: LINACLOTIDE 145 MCG CAPSULE PO SCH (09:13)
[2019-03-08] MEDS: PANTOPRAZOLE SOD 40 MG TABEC PO SCH (09:14)
[2019-03-08] MEDS: FERROUS SULFATE 325 MG TAB PO SCH (09:14)
[2019-03-08] MEDS: TAMSULOSIN HCL 0.4 MG CAP PO SCH (09:15)
[2019-03-08] MEDS: GABAPENTIN 400 MG CAP PO SCH ×3 (09:15→21:00)
[2019-03-08] MEDS: CLOPIDOGREL BISULFATE 75 MG TAB PO SCH (09:15)
[2019-03-08] MEDS: PREDNISONE 20 MG TAB PO SCH (09:16)
[2019-03-08] MEDS: NIFEDIPINE CR 30 MG TAB PO SCH ×2 (09:17→17:16)
[2019-03-08] MEDS: ALLOPURINOL 100 MG TAB PO SCH (09:18)
--- NOTE | 2019-03-08 11:59 | Progress Note ---
DATE: Internal Medicine Progress Note SUBJECTIVE: The patient is doing better. PHYSICAL EXAMINATION: VITAL SIGNS: Blood pressure 138/61, temperature 37.2, heart rate 79 per minute, respiratory rate 16 per minute, and oxygen saturation 100%. HEART: Showed regular rate and rhythm. Normal S1 and S2 sound. LUNGS: Show bilateral wheezing. ABDOMEN: Soft. EXTREMITIES: Show no evidence of cyanosis or hematoma. LABORATORY DATA: On the blood work, we have a CBC; white blood count 10.61, hemoglobin 10.9, hematocrit 35.1, and platelet count 147,000. BMP; sodium 135, potassium 4.4, chloride 103, CO2 of 24, BUN 53, creatinine 2.36, glucose 133, calcium 8.7, and magnesium 2.2. Modified barium swallow was done, which showed trace laryngeal penetration and no aspiration. IMPRESSION: 1. Chronic obstructive pulmonary disease exacerbation. 2. Aspiration pneumonia. 3. Acute on chronic renal failure, stage 4. 4. Peripheral vascular disease. 5. Coronary artery disease. 6. Hypertension. PLAN OF TREATMENT: We are going to continue current medication regimen, which include Zithromax 250 mg IV daily, Zosyn 2.25 g IV every 6 hours, Tylenol 650 mg p.o. every 4 hours as needed for moderate pain, Mucomyst 600 mg twice a day inhalation, albuterol every 4 hours as needed for shortness of breath, Zyloprim 200 mg daily, Lipitor 40 mg daily, clonidine 0.1 mg daily as needed for hypertension, Plavix 75 mg daily, ferrous sulfate 325 mg daily, gabapentin 400 mg three times a day, guaifenesin 400 mg every 6 hours as needed for cough, hydralazine 100 mg every 8 hours for hypertension, Atrovent every 4 hours, Linzess 145 mcg p.o. daily, melatonin 6 mg at night p.r.n. for insomnia, nifedipine 30 mg twice a day, Protonix 40 mg daily, prednisone 30 mg daily, Requip 0.5 mg at bedtime, Zoloft 100 mg daily, and Flomax 0.4 mg daily. We are going to recheck the BMP tomorrow. BUN and creatinine are improving so far. We are still waiting for insurance company to see if they can approve the patient to go to [facility] for continuation of IV antibiotic and optimization of cardiopulmonary status because the patient has the following conditions; aspiration pneumonia, COPD exacerbation, acute on chronic renal failure stage 4, and physical deconditioning. MD ANDRIY Trinidad/ROXANNA /[id number]
--- NOTE | 2019-03-08 19:05 | NUR ---
BS rounds completed with morning nurse. Pt alert to name. Lying in bed HOB 90 degrees. Denies pain at this time. Call calloway within reach. Bed low and locked. Will continue to monitor.
[2019-03-08] MEDS: SERTRALINE HCL 100 MG TAB PO SCH (21:00)
[2019-03-08] MEDS: ROPINIROLE HCL 0.25 MG TAB PO SCH (21:00)
--- NOTE | 2019-03-08 21:27 | NUR ---
PULMONARY MEDICINE DATE OF ENCOUNTER: 03/08/2019 SUBJECTIVE: breathing mildly better oxygen by NC d/w family at length less wheezing today REVIEW OF SYSTEMS: No headaches, no chest pain PHYSICAL EXAMINATION: VITAL SIGNS: Noted and reviewed per the chart record. GENERAL: NAD, alert and calm HEENT: Normocephalic, atraumatic. NECK: Supple. Throat midline. LUNGS: Bilateral air entry, mild wheezing, rare rhonchi. CARDIOVASCULAR: S1 and S2. No murmurs, rubs, or gallops. ABDOMEN: Soft and nontender. EXTREMITIES: No clubbing. No cyanosis. 1+ edema. INTEGUMENT: No rash. No purpura. LABORATORY DATA: k 4.4, cr 2.36 IMPRESSION AND PLAN: 1. Chronic obstructive pulmonary disease/chronic bronchitis with exacerbation. 1. possible additional mild overload 2. Perennial allergies. 3. Very mild gastroesophageal reflux disease. 4. History of hiatal hernia, s/p repair. 5. Obstructive sleep apnea. 6. Hypertension. 7. Peripheral vascular disease, hx AAA repair. 8. Coronary artery disease, status post stents. 9. Chronic hypoxemia on 5 L/minutes outpatient. 10. Chronic kidney disease. 11. History of renal cell carcinoma, s/p nephrectomy. 12. Former smoker. Steroids slow taper Bronchodilators N-acetylcysteine is reasonable as outpatient. Consider theophylline vs Daliresp later Abx continue, acute + chronic could be reasonable Aggressive PT and OT pulmonary rehabilitation program after discharge. Continue oxygen therapy. expectoration cough medication renal workup per specialists Thank you very much, Dr. Golden for this consult. Please call for any questions.
[2019-03-08] MEDS: AZITHROMYCIN 500MG/NS 250 ML 250 ML IV SCH (23:45)
[2019-03-09] VITALS (8 sets, daily range): BP systolic 78–182; BP diastolic 70–81
[2019-03-09] MEDS: IPRATROPIUM BROMIDE 0.02% 2.5 ML NEB NEB SCH ×7 (00:24→23:19)
[2019-03-09] MEDS: CLONIDINE HCL 0.1 MG TAB PO PRN (00:29)
[2019-03-09] MEDS: PIPERACILLIN/TAZO 2.25 GM 50 ML IV SCH ×3 (04:45→22:00)
[2019-03-09] MEDS: HYDRALAZINE HCL 100 MG TABLET PO SCH ×3 (05:56→22:00)
--- NOTE | 2019-03-09 06:03 | NUR ---
Patient lying in bed quietly with eyes closed. RR even and unlabored. No acute distress noted. Call calloway within reach. Will continue to monitor.
[2019-03-09 06:16] LABS: ANION GAP 12.3 mmol/L (8-16); CALCIUM 8.5 mg/dL (8.4-10.2); CREATININE, SERUM 2.31 mg/dL (0.72-1.25); POTASSIUM 4.3 mmol/L (3.5-5.1)
[2019-03-09] MEDS: ACETYLCYSTEINE 200 MG/1 ML 10ML VIAL INH SCH ×2 (07:50→23:13)
[2019-03-09] MEDS: ALBUTEROL SULF 0.083% NEB SOLN 3 ML NEB NEB PRN ×3 (07:50→14:33)
[2019-03-09] MEDS: LINACLOTIDE 145 MCG CAPSULE PO SCH (08:55)
[2019-03-09] MEDS: OMEGA PO SCH ×2 (08:56→17:00)
[2019-03-09] MEDS: TAMSULOSIN HCL 0.4 MG CAP PO SCH (08:56)
[2019-03-09] MEDS: FERROUS SULFATE 325 MG TAB PO SCH (08:56)
[2019-03-09] MEDS: PANTOPRAZOLE SOD 40 MG TABEC PO SCH (08:56)
[2019-03-09] MEDS: CLOPIDOGREL BISULFATE 75 MG TAB PO SCH (08:57)
[2019-03-09] MEDS: GABAPENTIN 400 MG CAP PO SCH ×3 (08:57→21:00)
[2019-03-09] MEDS: ALLOPURINOL 100 MG TAB PO SCH (08:58)
[2019-03-09] MEDS: PREDNISONE 20 MG TAB PO SCH (08:58)
[2019-03-09] MEDS ORDERED: NIFEDIPINE CR 30 MG TAB PO SCH ×2 (09:00)
--- NOTE | 2019-03-09 09:15 | NUR ---
patient accidentally dislodged his IV, large amount of blood noted on pt's floor; bleeding controlled, covered site with 2x2 and tape.
--- NOTE | 2019-03-09 12:15 | Progress Note ---
DATE: Internal Medicine Progress Note SUBJECTIVE: The patient is doing well. PHYSICAL EXAMINATION: HEART: Regular rhythm. Normal S1, S2 sound. Lungs: Showing bilateral wheezing. ABDOMEN: Soft. EXTREMITIES: No evidence of cyanosis or hematoma. VITAL SIGNS: Blood pressure 178/81, temperature 96 degrees, heart rate 81 per minute, respiratory rate 16 per minute, and oxygen saturation 94%. LABORATORY STUDIES: On the BMP; sodium 138, potassium 4.3, chloride 104, CO2 26, BUN 42, creatinine 2.31, glucose 114, calcium 8.5, and magnesium 2.2. On CBC, white blood count 10.61, hemoglobin 10.9, hematocrit 35.1, and platelet count 147,000. FINAL IMPRESSION: 1. Chronic obstructive pulmonary disease exacerbation. 2. Aspiration pneumonia. 3. Acute on chronic renal failure, stage 4. 4. Hypertension with chronic renal failure. 5. Peripheral vascular disease. PLAN OF TREATMENT: We are going to increase the Procardia XL to 90 mg daily, Zithromax 250 mg IV daily, Zosyn 2.25 g IV q.6 hours, Tylenol 650 mg q.4 hours as needed for pain, Mucomyst 600 mg twice a day, albuterol q.4 hours as needed for shortness of breath, zyloprim 200 mg daily, Lipitor 40 mg daily, clonidine 0.1 mg daily, Plavix 75 mg daily, ferrous sulfate 325 mg daily, gabapentin 400 mg three times a day, guaifenesin 400 mg q.6 hours as needed, hydralazine 100 mg q.8 hours, Atrovent 2.5 mL q.4 hours, Linzess 145 mcg p.o. daily, melatonin 6 mg p.r.n. for insomnia, Protonix 40 mg daily, prednisone 30 mg daily, Requip 0.5 mg at bedtime, sertraline 100 mg daily, and Flomax 0.4 mg daily. The insurance denied as usual the transfer to a long-term care hospital. We are going to appeal the decision today. MD ANDRIY Trinidad/ROXANNA /[id number]
[2019-03-09] MEDS ORDERED: SODIUM CHLORIDE 0.9% 250ML 250 ML ONE (15:00)
[2019-03-09] MEDS: CARVEDILOL 12.5 MG TAB PO SCH (17:51)
--- NOTE | 2019-03-09 18:00 | NUR ---
PT ACCIDENTALLY DISLODGED IV, BLEEDING CONTROLLED, SITE COVERED WITH 2X2 AND TAPE.
--- NOTE | 2019-03-09 19:00 | NUR ---
Completed report with morning nurse. Pt alert to name. Lying in bed HOB 60 degrees. Denies pain at this time. Call calloway within reach. Bed low and locked. Will continue to monitor.
--- NOTE | 2019-03-09 20:25 | NUR ---
PULMONARY MEDICINE DATE OF ENCOUNTER: 03/09/2019 SUBJECTIVE: breathing mildly better 3 L / MIN OXYGEN TODAY eating well BM rejected from LTAC? REVIEW OF SYSTEMS: No headaches, no chest pain PHYSICAL EXAMINATION: VITAL SIGNS: Noted and reviewed per the chart record. GENERAL: NAD, alert and calm HEENT: Normocephalic, atraumatic. NECK: Supple. Throat midline. LUNGS: Bilateral air entry, rare rhonchi. no wheezing today on my exam CARDIOVASCULAR: S1 and S2. No murmurs, rubs, or gallops. ABDOMEN: Soft and nontender. EXTREMITIES: No clubbing. No cyanosis. 1+ edema. INTEGUMENT: No rash. No purpura. LABORATORY DATA: k 4.3, cr 2.3 IMPRESSION AND PLAN: 1. Chronic obstructive pulmonary disease/chronic bronchitis with exacerbation. 1. possible additional mild overload 2. Perennial allergies. 3. Very mild gastroesophageal reflux disease. 4. History of hiatal hernia, s/p repair. 5. Obstructive sleep apnea. 6. Hypertension. 7. Peripheral vascular disease, hx AAA repair. 8. Coronary artery disease, status post stents. 9. Chronic hypoxemia on 5 L/minutes outpatient. 10. Chronic kidney disease. 11. History of renal cell carcinoma, s/p nephrectomy. 12. Former smoker. Steroids slow taper Bronchodilators N-acetylcysteine is reasonable as outpatient. Consider theophylline vs Daliresp later-- daliresp could be excellent if he qualifies Abx continue, acute + chronic could be reasonable Aggressive PT and OT pulmonary rehabilitation program after discharge. Continue oxygen therapy. expectoration cough medication renal workup per specialists Thank you very much, Dr. Golden for this consult. Please call for any questions.
[2019-03-09] MEDS: SERTRALINE HCL 100 MG TAB PO SCH (21:00)
[2019-03-09] MEDS: ROPINIROLE HCL 0.25 MG TAB PO SCH (21:00)
[2019-03-09] MEDS: MELATONIN 3 MG TAB PO PRN (21:20)
[2019-03-09] MEDS: AZITHROMYCIN 500MG/NS 250 ML 250 ML IV SCH (23:45)
[2019-03-10] VITALS (8 sets, daily range): BP systolic 104–149; BP diastolic 52–83
[2019-03-10] MEDS: IPRATROPIUM BROMIDE 0.02% 2.5 ML NEB NEB SCH ×6 (03:24→23:45)
[2019-03-10] MEDS: PIPERACILLIN/TAZO 2.25 GM 50 ML IV SCH ×4 (04:00→22:01)
[2019-03-10] MEDS: HYDRALAZINE HCL 100 MG TABLET PO SCH ×3 (05:45→22:10)
--- NOTE | 2019-03-10 07:05 | NUR ---
PATIENT IS AWAKE, ALERT, AND IN STABLE CONDITION WITH NO S/S OF RESPIRATORY DISTRESS. NO PAIN VOICED. 02 APPLIED. CALL LIGHT IS WITHIN REACH, PATIENT INSTRUCTED TO CALL FOR ASSISTANCE NEEDED.
[2019-03-10] MEDS: ALBUTEROL SULF 0.083% NEB SOLN 3 ML NEB NEB PRN ×3 (07:15→23:45)
[2019-03-10] MEDS: ACETYLCYSTEINE 200 MG/1 ML 10ML VIAL INH SCH ×2 (07:21→19:30)
[2019-03-10] MEDS: OMEGA PO SCH ×2 (09:00→16:45)
[2019-03-10] MEDS: FERROUS SULFATE 325 MG TAB PO SCH (10:05)
[2019-03-10] MEDS: NIFEDIPINE CR 30 MG TAB PO SCH (10:05)
[2019-03-10] MEDS: LINACLOTIDE 145 MCG CAPSULE PO SCH (10:05)
[2019-03-10] MEDS: PREDNISONE 20 MG TAB PO SCH (10:05)
[2019-03-10] MEDS: CLOPIDOGREL BISULFATE 75 MG TAB PO SCH (10:05)
[2019-03-10] MEDS: ALLOPURINOL 100 MG TAB PO SCH (10:05)
[2019-03-10] MEDS: GABAPENTIN 400 MG CAP PO SCH ×3 (10:05→20:41)
[2019-03-10] MEDS: PANTOPRAZOLE SOD 40 MG TABEC PO SCH (10:05)
[2019-03-10] MEDS: TAMSULOSIN HCL 0.4 MG CAP PO SCH (10:05)
[2019-03-10] MEDS: CARVEDILOL 12.5 MG TAB PO SCH ×2 (10:05→16:45)
--- NOTE | 2019-03-10 18:58 | NUR ---
PULMONARY MEDICINE DATE OF ENCOUNTER: 03/10/2019 SUBJECTIVE: 2 L/min oxygen eating BM walk dizzy when walking REVIEW OF SYSTEMS: No headaches, no chest pain PHYSICAL EXAMINATION: VITAL SIGNS: Noted and reviewed per the chart record. GENERAL: NAD, alert and calm HEENT: Normocephalic, atraumatic. NECK: Supple. Throat midline. LUNGS: Bilateral air entry, rare rhonchi. no wheezing today on my exam CARDIOVASCULAR: S1 and S2. No murmurs, rubs, or gallops. ABDOMEN: Soft and nontender. EXTREMITIES: No clubbing. No cyanosis. 1+ edema. INTEGUMENT: No rash. No purpura. LABORATORY DATA: k 4.3, cr 2.3 IMPRESSION AND PLAN: 1. Chronic obstructive pulmonary disease/chronic bronchitis with exacerbation. 1. possible additional mild overload 2. Perennial allergies. 3. Very mild gastroesophageal reflux disease. 4. History of hiatal hernia, s/p repair. 5. Obstructive sleep apnea. 6. Hypertension. 7. Peripheral vascular disease, hx AAA repair. 8. Coronary artery disease, status post stents. 9. Chronic hypoxemia on 5 L/minutes outpatient. 10. Chronic kidney disease. 11. History of renal cell carcinoma, s/p nephrectomy. 12. Former smoker. Steroids slow taper Bronchodilators N-acetylcysteine is reasonable as outpatient. Consider theophylline vs Daliresp later-- daliresp could be excellent if he qualifies Abx continue, acute + chronic could be reasonable Aggressive PT and OT pulmonary rehabilitation program after discharge. Continue oxygen therapy. expectoration cough medication renal workup per specialists Thank you very much, Dr. Golden for this consult. Please call for any questions.
--- NOTE | 2019-03-10 19:20 | NUR ---
PATIENT IS IN STABLE CONDITION WITH NO S/S OF RESPIRATORY DISTRESS. NO PAIN VOICED. 02 APPLIED. CALL LIGHT IS WITHIN REACH, PATIENT INSTRUCTED TO CALL FOR ASSISTANCE NEEDED. BEDSIDE REPORT GIVEN TO ONCOMING NURSE.
[2019-03-10] MEDS: ROPINIROLE HCL 0.25 MG TAB PO SCH (20:41)
[2019-03-10] MEDS: SERTRALINE HCL 100 MG TAB PO SCH (20:41)
--- NOTE | 2019-03-10 22:12 | NUR ---
BP rechecked 144/69 mmhg.
[2019-03-11] VITALS (10 sets, daily range): BP systolic 109–186; BP diastolic 54–85
[2019-03-11] MEDS: AZITHROMYCIN 500MG/NS 250 ML 250 ML IV SCH ×2 (00:13→22:34)
--- NOTE | 2019-03-11 03:55 | Progress Note ---
DATE: Internal Medicine Progress Note SUBJECTIVE: The patient complaining of dark stools. PHYSICAL EXAMINATION: HEART: Regular rhythm. Normal S1, S2 sound. LUNGS: Bilateral wheezing. ABDOMEN: Soft, slightly distended. EXTREMITIES: No evidence of cyanosis or hematoma. VITAL SIGNS: Blood pressure 136/69, temperature 95.7, heart rate 74 per minute, respiratory rate 22 per minute, oxygen saturation 98%. LABORATORY DATA: On the BMP; sodium 138, potassium 4.3, chloride 104, CO2 of 26, BUN 42, creatinine 2.31, glucose 114. On CBC; white blood count 10.6, hemoglobin 10.9, hematocrit 35.1, platelet count 147,000. AST 18, ALT 16, total bilirubin 0.4, alkaline phosphatase 61. FINAL IMPRESSION: 1. Chronic obstructive pulmonary disease exacerbation. 2. Aspiration pneumonia. 3. Ajkmr-hq-ryykywn renal failure, stage 4. 4. Hypertension with chronic renal failure. 5. Severe peripheral vascular disease. 6. Status post nephrectomy. 7. Dark stool, rule out gastrointestinal bleed. PLAN OF TREATMENT: We are going to send stool for guaiac to rule out any evidence of any bleeding. Continue albuterol q.4 hours, Atrovent q.4 hours. Continue Zosyn every 6 hours. Continue Zithromax 250 mg IV once a day, ferrous sulfate 325 mg daily, sertraline 100 mg daily, clonidine 0.1 mg daily, guaifenesin 400 mg q.6 hours as needed, carvedilol 12.5 mg twice a day, Tylenol 650 mg q.4 hours as needed, gabapentin 400 mg 3 times a day, Requip 0.5 mg at bedtime, hydralazine 100 mg q.8 hours, Mucomyst 600 mg twice a day, allopurinol 200 mg daily, Flomax 0.4 mg daily, Linzess 145 mcg p.o. daily, melatonin 6 mg at bedtime, Plavix 75 mg daily, Protonix 40 mg daily, Lipitor 40 mg daily, prednisone 30 mg daily, nifedipine 90 mg daily. We are still waiting to do the appeal on the denial for the patient to go to a long-term care hospital, which I think is appropriate because of aspiration pneumonia, COPD exacerbation, oxygen dependency, [id number] renal failure, but as I said insurance medical data entry clerk denies the possibility of him to go to the [facility] while filing the appeal. The patient is having dark stools also, we have to rule out any evidence of any gastrointestinal bleed. Also, he is still on the IV antibiotics and breathing treatments, still having wheezing also due to severe COPD exacerbation. MD ANDRIY Trinidad/ROXANNA /[id number]
[2019-03-11] MEDS: PIPERACILLIN/TAZO 2.25 GM 50 ML IV SCH ×4 (04:11→21:25)
[2019-03-11] MEDS: IPRATROPIUM BROMIDE 0.02% 2.5 ML NEB NEB SCH ×3 (04:25→11:13)
[2019-03-11] MEDS: ALBUTEROL SULF 0.083% NEB SOLN 3 ML NEB NEB PRN ×2 (04:25→07:23)
[2019-03-11] MEDS: HYDRALAZINE HCL 100 MG TABLET PO SCH ×3 (05:19→21:26)
[2019-03-11 06:10] LABS: BASOPHILS % 0.2 % (0.0-1.0); EOSINOPHILS % 0.2 % (0.0-6.0); HEMATOCRIT 32.7 % (38.2-49.6); HEMOGLOBIN 10.2 g/dL (14.0-18.0); LYMPHOCYTES # (AUTO) 1.4 (1.0-3.2); LYMPHOCYTES % 11.3 % (18.0-39.1); MEAN CORPUSCULAR HEMOGLOBIN 27.3 pg (28-32); MEAN CORPUSCULAR HGB CONC 31.2 g/dL (31-35); MEAN CORPUSCULAR VOLUME 87.4 fL (81-99); MONOCYTES # (AUTO) 0.6 (0.2-0.8); MONOCYTES % 5.1 % (4.4-11.3); NEUTROPHILS # (AUTO) 9.5 (2.1-6.9); PLATELET COUNT 170 x10e3/uL (140-360); RED BLOOD COUNT 3.74 x10e6/uL (4.3-5.7); RED CELL DISTRIBUTION WIDTH 16.9 % (11.7-14.4)
[2019-03-11 06:32] LABS: ANION GAP 12.9 mmol/L (8-16); CALCIUM 8.5 mg/dL (8.4-10.2); CREATININE, SERUM 2.41 mg/dL (0.72-1.25); POTASSIUM 4.9 mmol/L (3.5-5.1)
--- NOTE | 2019-03-11 07:10 | NUR ---
PATIENT IS IN STABLE CONDITION WITH NO S/S OF RESPIRATORY DISTRESS-WHEEZING NOTED. PATIENT DENIES PAIN. O2 APPLIED. CALL LIGHT IS WITHIN REACH, PATIENT INSTRUCTED TO CALL FOR ASSISTANCE NEEDED.
[2019-03-11] MEDS: ACETYLCYSTEINE 200 MG/1 ML 10ML VIAL INH SCH (07:28)
[2019-03-11] MEDS: PANTOPRAZOLE SOD 40 MG TABEC PO SCH (08:25)
[2019-03-11] MEDS: LINACLOTIDE 145 MCG CAPSULE PO SCH (08:25)
[2019-03-11] MEDS: OMEGA PO SCH ×2 (08:28→17:00)
[2019-03-11] MEDS: CARVEDILOL 12.5 MG TAB PO SCH ×2 (08:28→17:27)
[2019-03-11] MEDS: FERROUS SULFATE 325 MG TAB PO SCH (08:28)
[2019-03-11] MEDS: TAMSULOSIN HCL 0.4 MG CAP PO SCH (08:28)
[2019-03-11] MEDS: GABAPENTIN 400 MG CAP PO SCH ×2 (08:28→17:27)
[2019-03-11] MEDS: CLOPIDOGREL BISULFATE 75 MG TAB PO SCH (08:28)
[2019-03-11] MEDS: ALLOPURINOL 100 MG TAB PO SCH (08:29)
[2019-03-11] MEDS: NIFEDIPINE CR 30 MG TAB PO SCH ×2 (08:29→21:25)
[2019-03-11] MEDS: ATORVASTATIN 40 MG TAB PO SCH (10:16)
[2019-03-11] MEDS ORDERED: FUROSEMIDE INJ 10 MG/ML 4 ML VIAL IV NR (12:15)
[2019-03-11] MEDS: ALBUTEROL/IPRATROPIUM 3 ML NEB NEB SCH ×2 (13:00→19:05)
--- NOTE | 2019-03-11 13:36 | NUR ---
PULMONARY MEDICINE DATE OF ENCOUNTER: 03/11/2019 SUBJECTIVE: 2 L/min oxygen eating BM finally, was constipated today after diarrhea yesterday abd distension REVIEW OF SYSTEMS: No headaches, no chest pain PHYSICAL EXAMINATION: VITAL SIGNS: Noted and reviewed per the chart record. GENERAL: NAD, alert and calm HEENT: Normocephalic, atraumatic. NECK: Supple. Throat midline. LUNGS: Bilateral air entry, rare rhonchi. no wheezing today on my exam CARDIOVASCULAR: S1 and S2. No murmurs, rubs, or gallops. ABDOMEN: Soft and nontender. EXTREMITIES: No clubbing. No cyanosis. 1+ edema. INTEGUMENT: No rash. No purpura. LABORATORY DATA: k 4.9, cr 2.4. wbc 12, hct 32 IMPRESSION AND PLAN: 1. Chronic obstructive pulmonary disease/chronic bronchitis with exacerbation. 1. possible additional mild overload 2. Perennial allergies. 3. Very mild gastroesophageal reflux disease. 4. History of hiatal hernia, s/p repair. 5. Obstructive sleep apnea. 6. Hypertension. 7. Peripheral vascular disease, hx AAA repair. 8. Coronary artery disease, status post stents. 9. Chronic hypoxemia on 5 L/minutes outpatient. 10. Chronic kidney disease. 11. History of renal cell carcinoma, s/p nephrectomy. 12. Former smoker. Steroids slow taper Bronchodilators N-acetylcysteine is reasonable as outpatient. --Consider theophylline vs Daliresp later-- daliresp could be excellent if he qualifies Abx continue, acute + chronic could be reasonable Aggressive PT and OT pulmonary rehabilitation after discharge. Continue oxygen therapy. expectoration cough medication renal workup per specialists Thank you very much, Dr. Golden for this consult. Please call for any questions.
--- NOTE | 2019-03-11 15:09 | Diagnostic Imaging Report ---
EXAMINATION: CHEST SINGLE (PORTABLE) INDICATION: ^PNEUMONIA ^[id number] ^[id number] ^Y COMPARISON: Chest radiograph 03/05/2019 FINDINGS: AP view TUBES and LINES: None. LUNGS: Lungs are well inflated. Bibasilar airspace opacities are unchanged. Bilateral interstitial edema. PLEURA: No pleural effusion or pneumothorax. HEART AND MEDIASTINUM: Stable mild enlargement of the cardiac silhouette. BONES AND SOFT TISSUES: No acute osseous lesion. Soft tissues are unremarkable. UPPER ABDOMEN: No free air under the diaphragm. IMPRESSION: Bilateral interstitial edema. Persistent airspace opacities in both lung bases may reflect persistent pneumonia or aspiration. Signed by: Dr. Debi Wahl M.D. on 03/11/2019 3:05 PM
[2019-03-11] MEDS: ACETYLCYSTEINE 200 MG/ML 4ML VIAL PO SCH (17:27)
--- NOTE | 2019-03-11 19:50 | NUR ---
PATIENT IS IN STABLE CONDITION WITH NO S/S OF RESPIRATORY DISTRESS. NO PAIN VOICED. 02 APPLIED. FAMILY MEMBERS PRESENT IN ROOM. CALL LIGHT IS WITHIN REACH, PATIENT INSTRUCTED TO CALL FOR ASSISTANCE NEEDED. REPORT GIVEN TO ONCOMING NURSE.
[2019-03-11] MEDS: ROPINIROLE HCL 0.25 MG TAB PO SCH (21:25)
[2019-03-11] MEDS: SERTRALINE HCL 100 MG TAB PO SCH (21:25)
[2019-03-11] MEDS: MELATONIN 3 MG TAB PO PRN (21:40)
[2019-03-12] VITALS (9 sets, daily range): BP systolic 112–176; BP diastolic 57–83
[2019-03-12] MEDS: ALBUTEROL/IPRATROPIUM 3 ML NEB NEB SCH ×4 (02:00→19:20)
[2019-03-12] MEDS: PIPERACILLIN/TAZO 2.25 GM 50 ML IV SCH ×2 (03:36→09:04)
[2019-03-12] MEDS: HYDRALAZINE HCL 100 MG TABLET PO SCH ×3 (06:38→20:39)
--- NOTE | 2019-03-12 07:05 | NUR ---
PATIENT IS ALERT AND IN STABLE CONDITION WITH NO S/S OF RESPIRATORY DISTRESS. NO PAIN VOICED. O2 APPLIED. DAUGHTER PRESENT IN ROOM. CALL LIGHT IS WITHIN REACH, PATIENT INSTRUCTED TO CALL FOR ASSISTANCE NEEDED.
[2019-03-12 07:39] LABS: BASOPHILS % 0.2 % (0.0-1.0); EOSINOPHILS % 0.2 % (0.0-6.0); HEMATOCRIT 31.6 % (38.2-49.6); HEMOGLOBIN 9.9 g/dL (14.0-18.0); LYMPHOCYTES # (AUTO) 1.2 (1.0-3.2); LYMPHOCYTES % 9.9 % (18.0-39.1); MEAN CORPUSCULAR HEMOGLOBIN 27.7 pg (28-32); MEAN CORPUSCULAR HGB CONC 31.3 g/dL (31-35); MEAN CORPUSCULAR VOLUME 88.3 fL (81-99); MONOCYTES # (AUTO) 0.6 (0.2-0.8); NEUTROPHILS # (AUTO) 9.7 (2.1-6.9); NEUTROPHILS % 80.2 % (38.7-80.0); PLATELET COUNT 175 x10e3/uL (140-360); RED BLOOD COUNT 3.58 x10e6/uL (4.3-5.7); RED CELL DISTRIBUTION WIDTH 16.8 % (11.7-14.4)
[2019-03-12 08:00] LABS: ALBUMIN 2.8 g/dL (3.5-5.0); ALBUMIN/GLOBULIN RATIO 0.9 (0.8-2.0); ANION GAP 15.4 mmol/L (8-16); CALCIUM 8.4 mg/dL (8.4-10.2); CREATININE, SERUM 2.53 mg/dL (0.72-1.25); POTASSIUM 4.4 mmol/L (3.5-5.1)
[2019-03-12] MEDS: ALLOPURINOL 100 MG TAB PO SCH (08:17)
[2019-03-12] MEDS: FERROUS SULFATE 325 MG TAB PO SCH (08:18)
[2019-03-12] MEDS: NIFEDIPINE CR 30 MG TAB PO SCH ×2 (08:18→20:39)
[2019-03-12] MEDS: CLOPIDOGREL BISULFATE 75 MG TAB PO SCH (08:18)
[2019-03-12] MEDS: PREDNISONE 10 MG TAB PO SCH (08:18)
[2019-03-12] MEDS: TAMSULOSIN HCL 0.4 MG CAP PO SCH (08:18)
[2019-03-12] MEDS: ATORVASTATIN 40 MG TAB PO SCH (08:18)
[2019-03-12] MEDS: ACETYLCYSTEINE 200 MG/ML 4ML VIAL PO SCH ×2 (08:18→17:13)
[2019-03-12] MEDS: PANTOPRAZOLE SOD 40 MG TABEC PO SCH (08:18)
[2019-03-12] MEDS: LINACLOTIDE 145 MCG CAPSULE PO SCH (08:18)
[2019-03-12] MEDS: OMEGA PO SCH ×2 (08:18→17:00)
[2019-03-12] MEDS: CARVEDILOL 12.5 MG TAB PO SCH ×2 (08:18→17:14)
--- NOTE | 2019-03-12 10:07 | NUR ---
CALL PLACED OUT TO DR. LI FOR NAUSEA MEDICATION UPON PATIENT'S REQUEST- AWAITING CALLBACK.
[2019-03-12] MEDS ORDERED: ONDANSETRON HCL INJ 2MG/ML 2ML 2 MG/ML VIAL IV PRN (12:00)
[2019-03-12] MEDS ORDERED: FUROSEMIDE INJ 10 MG/ML 4 ML VIAL IV NR (12:30)
[2019-03-12] MEDS: CEFEPIME 2 GM/NS 0.9% 100 ML 100 ML IV SCH (13:10)
--- NOTE | 2019-03-12 15:30 | NUR ---
Visit made by the Spiritual Care Department Pastoral Visitor, Jacob Ordonez. PV provided pastoral presence, communion, prayer, hospitality, and supportive listening. Pastoral Visitor reminded pt/family of the scope of [employer] and availability. YADIEL KOTHARI [employer] Spiritual Care Department O: [phone] Pager: [phone] ([phone] number calling from)
--- NOTE | 2019-03-12 15:45 | NUR ---
PULMONARY MEDICINE DATE OF ENCOUNTER: 03/12/2019 SUBJECTIVE: 2 L/min oxygen walked around dizzyness on walking in the room eating ok REVIEW OF SYSTEMS: No headaches, no chest pain PHYSICAL EXAMINATION: VITAL SIGNS: Noted, reviewed per the chart record. GENERAL: NAD, alert and calm HEENT: Normocephalic, atraumatic. NECK: Supple. Throat midline. LUNGS: Bilateral air entry, rare rhonchi. no wheezing today on my exam CARDIOVASCULAR: S1 and S2. No murmurs, rubs, or gallops. ABDOMEN: Soft and nontender. EXTREMITIES: No clubbing. No cyanosis. 1+ edema. INTEGUMENT: No rash. No purpura. LABORATORY DATA: k 4.9, cr 2.4. wbc 12, hct 32 IMPRESSION AND PLAN: 1. Chronic obstructive pulmonary disease/chronic bronchitis with exacerbation. 1. possible additional mild overload 2. Perennial allergies. 3. Very mild gastroesophageal reflux disease. 4. History of hiatal hernia, s/p repair. 5. Obstructive sleep apnea. 6. Hypertension. 7. Peripheral vascular disease, hx AAA repair. 8. Coronary artery disease, status post stents. 9. Chronic hypoxemia on 5 L/minutes outpatient. 10. Chronic kidney disease. 11. History of renal cell carcinoma, s/p nephrectomy. 12. Former smoker. Steroids slow taper Bronchodilators N-acetylcysteine is reasonable as outpatient. --Consider theophylline vs Daliresp later-- daliresp could be excellent if he qualifies Abx continue, acute + chronic could be reasonable Aggressive PT and OT pulmonary rehabilitation after discharge. Continue oxygen therapy. expectoration cough medication renal workup per specialists Thank you very much, Dr. Golden for this consult. Please call for any questions.
--- NOTE | 2019-03-12 17:58 | NUR ---
RECEIVED CALLBACK FROM DR. Ignacio VIEIRA REGARDING PATIENT'S POST VOID RESIDUAL OF 295. DR. VIEIRA INFORMED THE PATIENT IS REFUSING ANY PLACEMENT OF A DISLA (THE PATIENT'S DAUGHTER, MAURI, WAS PRESENT DURING THE ASSESSMENT OF POST VOID RESIDUAL AND IS AWARE OF THE PATIENT'S REFUSAL FOR A DISLA CATH). NEW ORDER RECEIVED FOR URINE SAMPLE.
--- NOTE | 2019-03-12 19:21 | NUR ---
PT IS RESTING IN BED. RESPIRATION IS EVEN AND UNLABORED, NO DISTRESS NOTED. BED IN THE LOWEST POSITION, LOCKED, AND CALL LIGHT WITHIN REACH. WILL CONTINUE TO MONITOR.
[2019-03-12 19:44] LABS: BILIRUBIN,URINE NEGATIVE (NEGATIVE); CLARITY,URINE CLEAR (CLEAR); COLOR,URINE YELLOW (YELLOW); KETONES,URINE NEGATIVE (NEGATIVE); LEUKOCYTE ESTERASE ,URINE NEGATIVE (NEGATIVE); NITRITE,URINE NEGATIVE (NEGATIVE); PROTEIN,URINE DIPSTICK TRACE (NEGATIVE); URINE UROBILINOGEN 0.2 mg/dL (0.2 - 1)
[2019-03-12 20:16] LABS: RBC,URINE 0-5 /HPF (0-5); WBC,URINE (MAN) 0-5 /HPF (0-5)
[2019-03-12] MEDS: SERTRALINE HCL 100 MG TAB PO SCH (20:39)
[2019-03-12] MEDS: ROPINIROLE HCL 0.25 MG TAB PO SCH (20:39)
[2019-03-13] VITALS (7 sets, daily range): BP systolic 103–184; BP diastolic 49–79
[2019-03-13] MEDS: MELATONIN 3 MG TAB PO PRN ×2 (00:44→21:51)
[2019-03-13] MEDS: CLONIDINE HCL 0.1 MG TAB PO PRN (00:45)
[2019-03-13] MEDS: ALBUTEROL/IPRATROPIUM 3 ML NEB NEB SCH ×4 (00:45→19:00)
[2019-03-13] MEDS: HYDRALAZINE HCL 100 MG TABLET PO SCH (05:47)
[2019-03-13 06:01] LABS: BASOPHILS % 0.1 % (0.0-1.0); EOSINOPHILS # (AUTO) 0.1 (0.0-0.4); HEMATOCRIT 31.8 % (38.2-49.6); HEMOGLOBIN 10.1 g/dL (14.0-18.0); LYMPHOCYTES # (AUTO) 1.4 (1.0-3.2); LYMPHOCYTES % 10.8 % (18.0-39.1); MEAN CORPUSCULAR HEMOGLOBIN 27.2 pg (28-32); MEAN CORPUSCULAR HGB CONC 31.8 g/dL (31-35); MEAN CORPUSCULAR VOLUME 85.5 fL (81-99); MONOCYTES # (AUTO) 0.7 (0.2-0.8); MONOCYTES % 5.4 % (4.4-11.3); NEUTROPHILS # (AUTO) 10.7 (2.1-6.9); NEUTROPHILS % 80.4 % (38.7-80.0); PLATELET COUNT 176 x10e3/uL (140-360); RED BLOOD COUNT 3.72 x10e6/uL (4.3-5.7); RED CELL DISTRIBUTION WIDTH 16.5 % (11.7-14.4)
[2019-03-13 06:23] LABS: ALBUMIN 2.9 g/dL (3.5-5.0); ANION GAP 12.8 mmol/L (8-16); CALCIUM 8.4 mg/dL (8.4-10.2); CREATININE, SERUM 2.45 mg/dL (0.72-1.25); POTASSIUM 3.8 mmol/L (3.5-5.1)
[2019-03-13 06:54] LABS: PLATELET ESTIMATE SLIGHTLY DECREASED; PLATELET MORPHOLOGY COMMENT FEW LARGE; RBC MORPHOLOGY COMMENT NORMAL
[2019-03-13] MEDS: LINACLOTIDE 145 MCG CAPSULE PO SCH (08:19)
[2019-03-13] MEDS: PANTOPRAZOLE SOD 40 MG TABEC PO SCH (08:19)
[2019-03-13] MEDS: CARVEDILOL 12.5 MG TAB PO SCH ×2 (08:20→17:04)
[2019-03-13] MEDS: FERROUS SULFATE 325 MG TAB PO SCH (08:20)
[2019-03-13] MEDS: PREDNISONE 10 MG TAB PO SCH (08:20)
[2019-03-13] MEDS: ATORVASTATIN 40 MG TAB PO SCH (08:20)
[2019-03-13] MEDS: CLOPIDOGREL BISULFATE 75 MG TAB PO SCH (08:20)
[2019-03-13] MEDS: OMEGA PO SCH ×2 (08:21→17:00)
[2019-03-13] MEDS: NIFEDIPINE CR 30 MG TAB PO SCH ×2 (08:21→21:54)
[2019-03-13] MEDS: ALLOPURINOL 100 MG TAB PO SCH (08:21)
[2019-03-13] MEDS: ACETYLCYSTEINE 200 MG/ML 4ML VIAL PO SCH ×2 (09:00→18:34)
[2019-03-13] MEDS: HYDRALAZINE HCL 25 MG TAB PO SCH ×2 (12:00→17:04)
--- NOTE | 2019-03-13 12:26 | Progress Note ---
DATE: Internal Medicine Progress Note SUBJECTIVE: The patient is doing well. No significant complaint. PHYSICAL EXAMINATION: HEART: Regular rhythm. Normal S1, S2 sound. LUNGS: Clear bilaterally. ABDOMEN: Soft. EXTREMITIES: Show no evidence of cyanosis or hematoma. FINAL IMPRESSION: 1. Chronic obstructive pulmonary disease exacerbation. 2. Aspiration pneumonia. 3. Acute on chronic renal failure stage 4. 4. Status post nephrectomy. 5. Hypertension with chronic renal insufficiency. 6. Hypertension with hypertensive heart disease. 7. Gastroesophageal reflux disease. 8. Coronary artery disease. 9. Peripheral vascular disease. 10. Status post nephrectomy. PLAN OF TREATMENT: Continue albuterol q.4 hours, albuterol and Atrovent q.6 hours, cefepime 1 g IV once a day, Tylenol 650 mg q.4 hours as needed, Protonix 40 mg daily, Lipitor 40 mg daily, melatonin 6 mg at bedtime, Mucomyst 600 mg twice a day, allopurinol 200 mg daily, sertraline 100 mg daily, clonidine 0.1 mg daily, carvedilol 12.5 mg twice a day, Remeron 60 mg q.8 hours, Plavix 75 mg daily. Requip 0.5 mg at bedtime, Linzess 145 mcg daily, nifedipine 60 mg twice a day, Zofran 4 mg q.6 hours as needed, ferrous sulfate 325 mg daily, prednisone 10 mg daily, and Flomax 0.4 mg daily at bedtime. I increased the hydralazine to 50 mg q.6 hours due to the uncontrolled hypertension also. Lime Burner for [facility] the patient had possibility to go to [facility], which he was referred because of COPD exacerbation, aspiration pneumonia with bilateral PE. We are waiting on the response from the insurance company. MD ANDRIY Trinidad/ROXANNA /[id number]
[2019-03-13] MEDS: CEFEPIME 2 GM/NS 0.9% 100 ML 100 ML IV SCH (12:45)
--- NOTE | 2019-03-13 16:51 | NUR ---
Nutrition Follow up Note RD Recommendation for Physician: - Continue diet as ordered - Diet texture per COMFORT STATION SUPERVISOR Plan of Care: RD following, monitoring for tolerance and adequacy Nutrition reason for involvement: Follow up Primary Diagnose(s): COPD exacerbation PMH: 1. CAD, status post left heart catheterization in 2016 with a 60% mid LAD disease and about a 40% left circ disease. 2. Peripheral vascular disease. 3. Hypertension. 4. Hyperlipidemia. 5. AAA, status post EVAR. 6. Chronic kidney disease, stage 4, status post right nephrectomy. 7. COPD, on home oxygen. Ht: 65in Wt: 223lb BMI: 37.1kg/m2 IBW: 136lb +/- 10% RD Assessment: 03/13: Follow up: Pt was seen starting to eat his lunch with at bedside. was able to report the pt has a good appetite and denied any N/V/C/D/chewing or swallowing issues at this time. Pt has been consuming 100% of his meals per meal assessment. LBM: 03/12. Pt had MBS- COMFORT STATION SUPERVISOR recommended regular with thin liquids. Pending d/c to [facility]. Chart reviewed. Will continue to monitor. (03/06) Chart reviewed. Labs and meds reviewed. 78yo Dominican speaking male, who was admitted for COPD. Granddaughter present on bedside for translation. MBS ordered, pt complained of cough with PO intake. Chest XR showed decreased right and increased left bibasilar consolidation with stable cardiomegaly. MBS showed trace laryngeal penetration and no aspiration. COMFORT STATION SUPERVISOR rec regular texture with thin liquids. Pt with good appetite and no GI complains during time of visit. Placement pending. Current Diet: low sodium diet Malnutrition Evaluation (03/06/2019) The patient does not meet criteria for a specified degree of malnutrition at this time. Will re-evaluate at follow-up as appropriate. Energy intake: Adequate PO intake reported Weight loss: No weight loss reported Fat loss:no loss identified Muscle loss: no loss identified Supporting Evidence: Fluid accumulation: no accumulation identified Functional Status: no changes Diet Education Needs Assessment: Diet education not indicated. Nutrition Care Level: low Signed: Yudi Gill RD, LD
--- NOTE | 2019-03-13 19:25 | NUR ---
RECEIVED PT SITTING ON THE SIDE OF THE BED.NO ACUTE DISTRESS NOTED FAMILY AT THE SIDE OF THE BED .CALL LIGHTW ITH IN REACH .CONTINUE TO MONITOR
[2019-03-13] MEDS ORDERED: TAMSULOSIN HCL 0.4 MG CAP PO SCH (21:00)
[2019-03-13] MEDS: SERTRALINE HCL 100 MG TAB PO SCH (21:51)
[2019-03-13] MEDS: ROPINIROLE HCL 0.25 MG TAB PO SCH (21:53)
[2019-03-14] VITALS: BP 194/81
--- NOTE | 2019-03-14 00:03 | NUR ---
PULMONARY MEDICINE DATE OF ENCOUNTER: 03/13/2019 SUBJECTIVE: 2 L/min oxygen cough recurs intermittently walked around, still dizzy eating ok REVIEW OF SYSTEMS: No headaches, no chest pain PHYSICAL EXAMINATION: VITAL SIGNS: Noted, reviewed per the chart record. GENERAL: NAD, alert and calm HEENT: Normocephalic, atraumatic. NECK: Supple. Throat midline. LUNGS: Bilateral air entry, rare rhonchi. no wheezing today on my exam CARDIOVASCULAR: S1 and S2. No murmurs, rubs, or gallops. ABDOMEN: Soft and nontender. EXTREMITIES: No clubbing. No cyanosis. 1+ edema. INTEGUMENT: No rash. No purpura. LABORATORY DATA: k 3.8, cr 2.45 IMPRESSION AND PLAN: 1. Chronic obstructive pulmonary disease/chronic bronchitis with exacerbation. 1. possible additional mild overload 2. Perennial allergies. 3. Very mild gastroesophageal reflux disease. 4. History of hiatal hernia, s/p repair. 5. Obstructive sleep apnea. 6. Hypertension. 7. Peripheral vascular disease, hx AAA repair. 8. Coronary artery disease, status post stents. 9. Chronic hypoxemia on 5 L/minutes outpatient. 10. Chronic kidney disease. 11. History of renal cell carcinoma, s/p nephrectomy. 12. Former smoker. Steroids slow taper Bronchodilators N-acetylcysteine 600 mg is reasonable as outpatient. --Consider theophylline vs Daliresp later-- daliresp could be excellent if he qualifies Abx continue, acute + chronic could be reasonable Aggressive PT and OT pulmonary rehabilitation after discharge. Continue oxygen therapy. expectoration cough medication renal workup per specialists Thank you very much, Dr. Golden for this consult. Please call for any questions.
[2019-03-14] MEDS: ALBUTEROL/IPRATROPIUM 3 ML NEB NEB SCH ×3 (01:00→13:35)
[2019-03-14 04:00] VITALS: BP 129/60
[2019-03-14] MEDS: HYDRALAZINE HCL 25 MG TAB PO SCH ×2 (06:00)
[2019-03-14 08:00] VITALS: BP 146/65
[2019-03-14 08:04] VITALS: BP 146/65
[2019-03-14] MEDS: PANTOPRAZOLE SOD 40 MG TABEC PO SCH (08:34)
[2019-03-14] MEDS: LINACLOTIDE 145 MCG CAPSULE PO SCH (08:34)
[2019-03-14] MEDS: FERROUS SULFATE 325 MG TAB PO SCH (08:35)
[2019-03-14] MEDS: CLOPIDOGREL BISULFATE 75 MG TAB PO SCH (08:35)
[2019-03-14] MEDS: CARVEDILOL 12.5 MG TAB PO SCH (08:35)
[2019-03-14] MEDS: PREDNISONE 10 MG TAB PO SCH (08:35)
[2019-03-14] MEDS: ATORVASTATIN 40 MG TAB PO SCH (08:35)
[2019-03-14] MEDS: NIFEDIPINE CR 30 MG TAB PO SCH (08:36)
[2019-03-14] MEDS: ALLOPURINOL 100 MG TAB PO SCH (08:36)
[2019-03-14] MEDS: OMEGA PO SCH (08:38)
[2019-03-14] MEDS ORDERED: ACETYLCYSTEINE 200 MG/ML 4ML VIAL PO SCH (09:00)
[2019-03-14 11:59] VITALS: BP 144/65
--- NOTE | 2019-03-14 13:11 | NUR ---
MET W THE PT AT THE BEDSIDE TO DISCUSS HOME HEALTH. PT ASKED THAT I SPEAK W ELENI, HIS DAUGHTER. CALL WAS PLACED TO ELENI VILLELA @ [phone]. INFORMED DTR PT WAS DISCHARGING HOME TODAY W HOME HEALTH. EXPLAINED PURPOSE OF HH. VERBALIZED UNDERSTANDING . STATES HER FATHER WAS RECEIVING THERAPY BEFORE COMING INTO THE HOSPITAL, BUT SHE DID NOT REMEMBER THE NAME OF THE AGENCY. STATES SHE WAS ALREADY EN ROUTE TO P/U HER FATHER. WE AGREED ELENI WILL CALL CM BACK W NAME OF HH AGENCY ONCE THE PT RETURNS HOME. CHOICE LETTER WAS SIGNED AND WITNESSED BY BEDSIDE SUJIT CARLTON. EXPLAINED IMM LETTER. VERBALIZED UNDERSTANDING. IMM LETTER WAS SIGNED AND WITNESSED BY BIANKA [facility]. COPY TO PT AND COPY TO THE CHART
[2019-03-14] MEDS ORDERED: ONDANSETRON HCL 4 MG ORAL DISINTEGRATING TAB PO PRN (13:45)
--- NOTE | 2019-03-14 17:14 | NUR ---
HOME HEALTH DISCHARGE NOTE PATIENT ADDRESS WHERE SERVICE WILL BE RECEIVED: [address] [place] [address] PATIENT CONTACT NUMBER: [phone] NAME OF HOME HEALTH COMPANY: [facility] TELEPHONE/FAX NUMBER OF [facility]: [facility] [phone] / FAX: [phone] ADDRESS OF [facility]: [address] [place] [id number] SERVICES TO RECEIVE: SN EVAL AND TREAT, PT EVAL AND TREAT ANTICIPATED DATE SERVICES WILL BEGIN: 03/15/2019 Please call the company above if you have not received a call to schedule a home visit within 24 hours of discharge.
--- NOTE | 2019-03-14 17:31 | NUR ---
Pt discharged at this time. Pt and family verbalized understanding of all discharge instructions. Pt went home with home health and oxygen.
--- NOTE | 2019-03-15 13:47 | Discharge Summary ---
HOSPITAL COURSE: This is a 78-year-old male with past medical history positive for PAD, coronary artery disease, chronic renal insufficiency, hypertension. The patient came to the hospital, transferred to the office because of hypoxemia, respiratory failure. He has wheezing, admitted to the hospital with COPD exacerbation, pneumonia. The patient was referred to [facility] after he was started on IV antibiotic, oxygen, and breathing treatments. The insurance, which is [employer] rejected the possibility of transfer to [facility] for long-term IV antibiotic and optimization of the cardiopulmonary status. We filed an appeal, they rejected that also. So, at this point, the patient is going home today with oral antibiotics and nebulization treatment. The patient is doing better. PHYSICAL EXAMINATION: VITAL SIGNS: Blood pressure 146/65, temperature 96.1, heart rate 72 per minute, respiratory rate 22 per minute, oxygen saturation 95%. HEART: Regular rhythm. Normal S1, S2 sound. LUNGS: Show decreased breath sounds bilaterally. LABORATORY DATA: On the BMP; sodium 135, potassium 3.8, chloride 97, CO2 29, BUN 36, creatinine 2.45, glucose 104. On the CBC, white blood count 13,200, hemoglobin 10.1, hematocrit 31.8, platelet count 176,000. AST 20, ALT 36, total bilirubin 0.4, alkaline phosphatase 65. IMPRESSION: 1. Acute respiratory failure secondary to chronic obstructive pulmonary disease exacerbation. 2. Chronic obstructive pulmonary disease exacerbation. 3. Acute on chronic renal failure, stage 4. 4. Pneumonia. 5. Coronary artery disease. 6. Peripheral vascular disease. 7. Status post nephrectomy. 8. Gastroesophageal reflux disease. 9. Hypercholesterolemia. 10. Anemia of chronic disease secondary to chronic renal failure. 11. Benign prostatic hypertrophy. 12. Hypertension with chronic renal insufficiency. PLAN OF TREATMENT: Continue albuterol q.4 hours and continue albuterol and Atrovent q.6 hours. We are going to put him on Levaquin 500 mg daily p.o. for seven days. Continue Tylenol 650 mg p.o. q.4 hours as needed for pain or fever, Protonix 40 mg daily, Lipitor 40 mg daily, melatonin 6 mg at night p.r.n. for sleep, Zofran 4 mg q.4-6 hours as needed for nausea and vomiting, allopurinol 200 mg daily, sertraline 100 mg daily, clonidine 0.1 mg daily, carvedilol 12.5 mg twice a day, Flomax 0.4 mg daily at bedtime, Plavix 75 mg daily, Requip 0.5 mg daily, Amitiza 145 mcg p.o. daily, nifedipine 60 mg twice a day, hydralazine 50 mg q.6 hours, ferrous sulfate 325 mg daily, prednisone is going to be prescribed, Medrol Dosepak to take as directed. Follow up me with me in a week. MD ANDRIY Trinidad/ROXANNA /[id number]
== END 2019-03-14 15:37 | disposition home health service (06) | DRG 189 ==
LOC: MED/SURG3 12:15
PROVIDERS: ADMIT Internal Medicine; ATTEND Internal Medicine
DX: J96.01 Acute respiratory failure with hypoxia (principal); J69.0 Pneumonitis due to inhalation of food and vomit; J44.1 Chronic obstructive pulmonary disease with (acute) exacerbation; N17.9 Acute kidney failure, unspecified; N18.4 Chronic kidney disease, stage 4 (severe); I13.0 Hypertensive heart and chronic kidney disease with heart failure and stage 1 through stage 4 chronic kidney disease, or unspecified chronic kidney disease; I50.32 Chronic diastolic (congestive) heart failure; I25.10 Atherosclerotic heart disease of native coronary artery without angina pectoris; I73.9 Peripheral vascular disease, unspecified; K21.9 Gastro-esophageal reflux disease without esophagitis; G47.33 Obstructive sleep apnea (adult) (pediatric); Z90.5 Acquired absence of kidney; E78.00 Pure hypercholesterolemia, unspecified; D63.1 Anemia in chronic kidney disease; Z99.81 Dependence on supplemental oxygen; N40.0 Benign prostatic hyperplasia without lower urinary tract symptoms; J30.2 Other seasonal allergic rhinitis; Z95.5 Presence of coronary angioplasty implant and graft; Z87.891 Personal history of nicotine dependence; Z85.528 Personal history of other malignant neoplasm of kidney; M10.9 Gout, unspecified; G47.00 Insomnia, unspecified
CPT/HCPCS: 36415; 71045; 71046; 74230; 76770; 80048; 80053; 80061; 81001; 82270; 82948; 83735; 83880; 84443; 85025; 87086; 93005; 93306; 94640; 97139; J0456; J1940; J2405; J2543; J2930; J7050; J7512

== ENCOUNTER → 2019-06-28 | Day surgery (SDC) | payer MEDICARE, OTHER ==
--- NOTE | 2019-06-22 16:18 | Diagnostic Imaging Report ---
Chest, 2 views, 06/22/2019. History: Preop, prostate surgery. Comparison: 03/11/2019. 08/21/2018. Findings: The cardiomediastinal silhouette and pulmonary vasculature are within normal limits. The lungs are clear without evidence of consolidation or pleural effusion. Linear opacities are present the right lung base. There are no acute osseous or soft tissue abnormalities. Impression: Right basilar linear scarring. Signed by: Chandler Verduzco on 06/22/2019 4:16 PM
[~2019-06-28] MED LIST changes: +ALLOPURINOL100 MG PO; +AMITIZA24 MCG PO; +B&O 60MG R/S 60 MG SUPP PR ONE; +CARVEDILOL3.125 MG PO; +FERROUS SULFAT325 MG PO; +GENTAMICIN 80MG/NS 100 ML 100 ML IV ONE; +HYDRALAZINE HCL25 MG PO; +IOPAMIDOL 300MG/ML 50ML INFUS..BTL IV ONE; +LIDOCAINE HCL 2% LOCAL INJ 5 ML SDV VIAL INJ ONE; +OMEPRAZOLE40 MG PO; +ONDANSETRON HCL INJ 2MG/ML 2ML 2 MG/ML VIAL ONE; +PIPERACILLIN/TAZO 2.25 GM 50 ML IV ONE; +PROPOFOL IV EMULSION 10 MG/ML 20 ML VIAL ONE; +SEVOFLURANE INHAL SOLN 250 ML PEN BTL ONE; +SPIRIVA18 MCG INH
[2019-06-28 10:10] VITALS: BP 148/92
--- NOTE | 2019-08-09 03:50 | Operative Report ---
DATE OF PROCEDURE: 07/29/2019 SURGEON: Von Richards MD PREOPERATIVE DIAGNOSES: 1. Elevated PSA. 2. Chronic renal insufficiency. POSTOPERATIVE DIAGNOSES: 1. Elevated PSA. 2. Chronic renal insufficiency. OPERATION PERFORMED: 1. Transrectal sonography interpretation, no radiologist present. 2. Ultrasonographic interpretation for guidance for needle biopsies of the prostate, no radiologist present. 3. Transrectal needle biopsies of the prostate (separate procedure performed for the elevated PSA). 4. Cystourethroscopy with bilateral ureteral catheterization and retrograde ureteropyelography (separate procedure performed for the renal insufficiency). 5. Interpretation of retrograde ureteropyelography. 6. Supervision of fluoroscopy, no radiologist present. ANESTHESIA: General. COMPLICATIONS: None. CLINICAL SUMMARY: Anup West is a 78-year-old man with a record of fairly poor compliance with followup instructions. The patient has underwent a right radical nephrectomy for renal cell carcinoma. He has renal insufficiency and as above preoperative diagnoses. He is brought for the above procedures. He is aware of the risks of bleeding, infection, injury to adjacent structures, need for additional procedures and elected to proceed. OPERATIVE PROCEDURE IN DETAIL: After informed consent was verified, Anup West was properly identified, taken to the operating room, placed on the cystoscopy table in supine position. Anesthesia was uneventfully begun. The patient was then carefully gently repositioned in the dorsal lithotomy position with all pressure points well padded. Transrectal sonography was then performed. Interpretation of transrectal sonography, real-time ultrasonography was performed. The patient has a large prostate, measuring 49 mL. He has a heterogeneous prostate with small cystic structures throughout the transition zone. There was some calcifications at the junction between the transition and the peripheral zone. Some additional periurethral calcifications were noted. Seminal vesicles were unremarkable. No obvious hypoechoic lesions were identified and the prostate capsule was smooth. With ultrasonographic guidance, needle biopsies of the prostate were taken. These biopsies were sent in 6 different containers, but multiple biopsies were placed into each container. We differentiated right versus left versus mid versus apex. Once we obtained this, the patient's genitalia were prepared and draped in usual sterile fashion. The cystoscope sheath with the visual obturator in place was atraumatically inserted in the patient's urethra was guided unremarkable distal urethra through the normal sphincteric region, through the prostate bed, which was significant for trilobar prostatic hypertrophy with kissing lateral lobes and median lobe that was ball-valving and was intravesical. Panendoscopy revealed at least grade 1 trabeculations, but no tumors, no stones, no diverticula. Normally positioned configured ureteral orifices were identified. An 8-Sammarinese catheter was used to cannulate each ureter and retrograde ureteral pyelograms were performed. Interpretation of retrograde ureteropyelography contrast was instilled in retrograde fashion bilaterally. There was a blind-ending ureter on the right, but it did not have any filling defects and it had unobstructed drainage. The left side had no hydronephrosis, no tumors, no stones, no diverticula. J-hooking was noted. Unobstructed drainage was observed fluoroscopically. The patient's bladder was drained. The cystoscope was withdrawn and the patient was uneventfully reversed from anesthesia and taken to recovery room in stable condition. Explicit postop instructions were given. We will follow the patient up in the office and of course, we will continue to encourage the patient to be more compliant with his followup appointments. Von Richards MD [place]/MODL /[id number] cc: Ulises Golden MD
== END | disposition home or self-care (01) ==
LOC: OR 06:15
PROVIDERS: ATTEND Urology
DX: R97.20 Elevated prostate specific antigen [PSA] (principal); N41.0 Acute prostatitis; N41.1 Chronic prostatitis; N28.89 Other specified disorders of kidney and ureter; N32.89 Other specified disorders of bladder; I13.0 Hypertensive heart and chronic kidney disease with heart failure and stage 1 through stage 4 chronic kidney disease, or unspecified chronic kidney disease; N18.9 Chronic kidney disease, unspecified; I50.9 Heart failure, unspecified; G47.33 Obstructive sleep apnea (adult) (pediatric); J44.9 Chronic obstructive pulmonary disease, unspecified; K44.9 Diaphragmatic hernia without obstruction or gangrene; I25.10 Atherosclerotic heart disease of native coronary artery without angina pectoris; M19.90 Unspecified osteoarthritis, unspecified site; F41.9 Anxiety disorder, unspecified; Z01.810 Encounter for preprocedural cardiovascular examination; Z01.818 Encounter for other preprocedural examination; Z79.02 Long term (current) use of antithrombotics/antiplatelets; Z95.5 Presence of coronary angioplasty implant and graft; Z85.528 Personal history of other malignant neoplasm of kidney; Z87.891 Personal history of nicotine dependence; Z90.5 Acquired absence of kidney
CPT/HCPCS: 52005; 55700; 71046; 74420; 76872; 76998; 88305; 93005; C1758; J1580; J2001; J2405; J2543; J2704; Q9967

== ENCOUNTER → 2019-08-15 | Outpatient (CLI) | payer OTHER ==
[~2019-08-15] MED LIST changes: -B&O 60MG R/S 60 MG SUPP PR ONE; -GENTAMICIN 80MG/NS 100 ML 100 ML IV ONE; -IOPAMIDOL 300MG/ML 50ML INFUS..BTL IV ONE; -LIDOCAINE HCL 2% LOCAL INJ 5 ML SDV VIAL INJ ONE; -ONDANSETRON HCL INJ 2MG/ML 2ML 2 MG/ML VIAL ONE; -PIPERACILLIN/TAZO 2.25 GM 50 ML IV ONE; -PROPOFOL IV EMULSION 10 MG/ML 20 ML VIAL ONE; -SEVOFLURANE INHAL SOLN 250 ML PEN BTL ONE
--- NOTE | 2019-08-15 09:42 | Diagnostic Imaging Report ---
EXAM: CHEST 2 VIEWS DATE: 08/15/2019 8:50 AM INDICATION: Renal cancer COMPARISON: 06/22/2019 FINDINGS: The trachea is midline. Areas of subsegmental atelectasis identified within the right mid and lower lung zones. There is no evidence for large focal consolidation, pneumothorax, or significant pleural effusion. The cardiomediastinal silhouette is stable in appearance. No acute osseous abnormality is identified. IMPRESSION: No acute cardiopulmonary process or significant interval change from 06/22/2019. Signed by: Dr. Keagan Sykes MD on 08/15/2019 9:39 AM
--- NOTE | 2019-08-15 11:24 | Diagnostic Imaging Report ---
EXAM: US RENAL RETROPERITONEAL COMP DATE: 08/15/2019 8:50 AM INDICATION: Renal cancer COMPARISON: 03/02/2019 FINDINGS: The right kidney is surgically absent. The left kidney is normal in size measuring 12.9 x 5.7 x 6.2 cm with cortical thickness of 2.5 cm. Cortical echogenicity is within normal limits. Multiple cysts are identified within the left kidney measuring 3.2 x 3.2 x 3.4 cm within the mid/lateral left kidney, 3.0 x 2.1 x 2.8 cm within the lower pole, and 2.6 x 2.1 x 2.0 cm within the upper pole. The cyst within the upper pole contains a thin septation, not significantly changed from the prior examination. There is no evidence for solid renal mass, hydronephrosis, or shadowing calculi. The urinary bladder demonstrates no significant abnormalities. Prevoid volume is 163 cc. IMPRESSION: Status post right nephrectomy. Left renal cysts with the upper pole cyst containing a thin septation, not significantly changed from the prior examination. Signed by: Dr. Keagan Sykes MD on 08/15/2019 11:21 AM
== END ==
LOC: US 08:34
PROVIDERS: ATTEND Urology
DX: C64.1 Malignant neoplasm of right kidney, except renal pelvis (principal)
CPT/HCPCS: 71046; 76770

== ENCOUNTER 2020-05-16 14:42 | Emergency (ER) | payer OTHER ==
[~2020-05-16] VITALS: Ht 165.1 cm; Wt 101.2 kg
[2020-05-16 15:20] LABS: BASOPHILS % 0.2 % (0.0-1.0); HEMATOCRIT 35.2 % (38.2-49.6); HEMOGLOBIN 11.4 g/dL (14.0-18.0); LYMPHOCYTES # (AUTO) 1.3 (1.0-3.2); LYMPHOCYTES % 9.1 % (18.0-39.1); MEAN CORPUSCULAR HEMOGLOBIN 28.9 pg (28-32); MEAN CORPUSCULAR HGB CONC 32.4 g/dL (31-35); MEAN CORPUSCULAR VOLUME 89.3 fL (81-99); MONOCYTES # (AUTO) 1.1 (0.2-0.8); MONOCYTES % 7.8 % (4.4-11.3); NEUTROPHILS # (AUTO) 11.1 (2.1-6.9); NEUTROPHILS % 80.8 % (38.7-80.0); PLATELET COUNT 283 x10e3/uL (140-360); RED BLOOD COUNT 3.94 x10e6/uL (4.3-5.7)
[2020-05-16] MEDS ORDERED: DEXAMETHASONE SOD PHOS 10 MG/1 ML VIAL ONE (15:36)
[2020-05-16 15:44] LABS: ALBUMIN 2.5 g/dL (3.5-5.0); ALBUMIN/GLOBULIN RATIO 0.6 (0.8-2.0); ANION GAP 23.7 mmol/L (8-16); CALCIUM 7.8 mg/dL (8.4-10.2); CREATININE, SERUM 4.32 mg/dL (0.72-1.25); POTASSIUM 4.7 mmol/L (3.5-5.1)
[2020-05-16] MEDS ORDERED: DEXAMETHASONE SOD PHOS INJ 4 MG/ML VIAL IV ONE (15:45)
[2020-05-16 16:13] LABS: CREATINE KINASE MB 6.2 ng/mL (0-5.0)
[2020-05-16] MEDS ORDERED: SODIUM BICARBONATE 8.4% INJ 50 ML SYR IV ONE (17:15)
== END 2020-05-16 21:58 | disposition other institution (70) ==
LOC: ER 14:46
DX: U07.1 COVID-19 (principal); J96.00 Acute respiratory failure, unspecified whether with hypoxia or hypercapnia; Z66 Do not resuscitate; I10 Essential (primary) hypertension; E78.5 Hyperlipidemia, unspecified; J44.9 Chronic obstructive pulmonary disease, unspecified; K21.9 Gastro-esophageal reflux disease without esophagitis; Z85.528 Personal history of other malignant neoplasm of kidney
CPT/HCPCS: 36415; 71045; 80053; 82550; 82553; 83880; 84484; 85025; 87040; 93005; 94760; 99284; J1100; U0002